=== PATIENT | male | born 1960 | race Caucasian/White ===

== ENCOUNTER 2024-08-11 13:39 | Outpatient (RCR) | payer BC, SELFPAY | END 2024-08-11 23:59 | disposition home or self-care (01) | LOC: RST 13:39 | PROVIDERS: ATTENDING PHYSICIAN Psychiatry & Neurology Neurology; FAMILY PHYSICIAN Family Medicine | DX: G20.A1 Parkinson's disease without dyskinesia, without mention of fluctuations (principal); R47.1 Dysarthria and anarthria; R49.0 Dysphonia | CPT/HCPCS: 92507; 92524 ==

== ENCOUNTER 2024-08-28 11:43 | Outpatient (RCR) | payer BC, SELFPAY | END 2024-08-28 23:59 | disposition home or self-care (01) | LOC: RST 11:43 | PROVIDERS: ATTENDING PHYSICIAN Psychiatry & Neurology Neurology; FAMILY PHYSICIAN Family Medicine | DX: G20.A1 Parkinson's disease without dyskinesia, without mention of fluctuations (principal); R47.1 Dysarthria and anarthria; R49.0 Dysphonia | CPT/HCPCS: 92507 ==

== ENCOUNTER 2025-01-10 15:39 | Inpatient (IN) | payer BC, SELFPAY ==
[2025-01-10] VITALS (33 sets, daily range): BP systolic 53–124; BP diastolic 33–109; BMI 36.0; BMI 35.8
--- NOTE | 2025-01-10 11:25 | ED.GENMED ---
History of Present Illness
General
Chief Complaint: Abdominal Symptoms
Source: patient and spouse
Exam Limitations: none
Time Seen by Provider: 01/10/25 11:13
Nursing documentation reviewed up to this point in time: agreed with
History of Present Illness
History of Present Illness:
64-year-old male with no reported chronic medical issues presents to the ER with his for evaluation of nausea, vomiting, diarrhea and fatigue. Of note patient has been on Mounjaro for weight loss last dose was on Sunday. He says that for the
past 2 weeks he has had vomiting and diarrhea nonbloody. He says he has not been able to eat very much and recently not keeping fluids down. Has been feeling very weak and lightheaded�in fact in triage he had a near syncopal event. says 'he
has been out of it.' He denies any significant amount of abdominal pain. He denies any chest pain or shortness of breath, fevers, chills, urinary symptoms or any other complaints. He denies any prior abdominal surgeries.
Past History
Social History
Tobacco: Non-smoker
Personal:
Living: with family
Review of Systems
Review of Systems
All Other Systems: ROS reviewed and negative except as documented in HPI and ROS
Constitutional: Reports fatigue; Denies fever or chills
EENT: Denies sore throat or runny nose
Respiratory: Denies cough or trouble breathing
Cardiac: Denies chest pain
ABD/GI: Reports nausea, vomiting and diarrhea; Denies abdominal pain, bloody stools or black stools
: Denies dysuria or flank pain
Musculoskeletal: Denies neck pain or back pain
Neurological: Reports dizzy; Denies headache
Phy Exam
Physical Exam
Physical Exam:
General: Awake, alert, oriented x3; no acute distress
Head: Normocephalic, atraumatic
Eyes: Conjunctiva normal, sclera anicteric
Throat: Airway intact, dry mucous membranes
Neck: Trachea midline, supple without meningismus
Lungs: Clear to auscultation bilaterally, no wheezing, rales, rhonchi
Heart: Regular rate and rhythm, no murmurs, gallops, or rubs
Abd: Soft, non distended, tender to palpation left lower quadrant
Neuro: No gross deficits
Skin: Warm and dry, no rash
Extremities: No edema in extremities, equal pulses in all extremities
Scores
Heart Failure Risk
Heart Failure Risk Score: Not Applicable
Heart Score for Chest Pain Patients
STEMI patient?: Not applicable
Withdrawal Assessment of Alcohol
Withdrawal Assessment Completed?: Not applicable
Course
Orders/Labs/Results
Orders:
Orders
01/10/25 11:16
Cardiac Monitoring- Treatment ONCE
IV Insert/Care/Rem.- Treatment PRN
Urinalysis Reflex To Culture Urgent
Stool Culture Urgent
CANDY Source: Feces/Stool
Specimen Description:
0.9% Sodium Chloride 1000 ml [Nss] 1,000 ml IV BOLUS
O2 Therapy [RESP] Stat
Titrate/Wean O2 to maintain O2 sat greater than (%): 90
Pulse Ox/cont/shift [RESP] Stat
Quantity: 1
01/10/25 11:17
Electrocardiogram (*1) Stat
Reason for Study: Abdominal Pain
EKG- Treatment ONCE
01/10/25 11:24
Iohexol [Omnipaque] See Protocol PO NOW STA
01/10/25 11:25
COVID-19 Antigen Urgent
Source: Nasal Swab
Complete Blood Count/With Diff Urgent
Comprehensive Metabolic Panel Urgent
Lipase Urgent
Magnesium Urgent
Influenza A+B Rapid Molecular Urgent
CANDY Source: Nasal Swab
Specimen Description:
Ondansetron Injectable [Zofran] 4 mg IV NOW STA
01/10/25 11:45
Lactate Level [Lactic Acid] Urgent
Blood Culture Q30M
CANDY Source: Blood/Venous
Specimen Description:
01/10/25 11:47
Blood Culture Q30M
CANDY Source: Blood/Venous
Specimen Description:
01/10/25 12:05
Salazar Placement- Treatment ONCE
Reason for insertion: Acute Kidney Injury
Urine Creatinine Urgent
Urine Sodium Urgent
01/10/25 12:06
Osmolality, Random Urine Urgent
0.9% Sodium Chloride 1000 ml [Nss] 1,000 ml IV BOLUS
01/10/25 12:10
CT Abd/pel (oral only)-DH Only Urgent
Comment:
Reason For Exam: N/V/D, LLQ TTP; renal failure
Iohexol [Omnipaque] See Protocol PO NOW STA
Abnormal Lab Results
01/10/25
11:25
RBC 4.07 L 10^6/uL
(4.70-6.10)
Hct 38.7 L %
(39.0-52.0)
MCV 95.1 H fL
(80.0-94.0)
MCH 33.4 H pg
(27.0-31.0)
MPV 11.4 H fL
(7.4-10.4)
Abs Immat Gran (auto) 0.1 H 10^3/uL
(0-0.05)
Absolute Monos (auto) 0.9 H 10^3/uL
(0.1-0.6)
Immature Gran % 1.3 H %
(0-0.5)
Monocytes % 14.3 H %
(1.7-9.3)
Sodium 131 L mmol/L
(135-145)
Carbon Dioxide 8 L* mmol/L
(22-30)
BUN 90 H mg/dl
(9-20)
Creatinine 11.6 H* mg/dL
(0.7-1.3)
Lipase 866 H U/L
(23-300)
01/10/25 11:25
01/10/25 11:25
Vital Signs
Initial and Last Documented VS:
Initial Vital Signs
Temp Pulse Resp Pulse Ox
36.5 C 57 16 95
01/10/25 10:57 01/10/25 10:57 01/10/25 10:57 01/10/25 10:57
Last Documented Vital Signs
Temp Pulse Resp BP Pulse Ox
36.5 C 96 14 86/33 97
01/10/25 10:57 01/10/25 11:13 01/10/25 11:13 01/10/25 11:13 01/10/25 11:13
MDM/Problems Addressed
Differential Diagnosis Includes:
Colitis, diverticulitis, enteritis, gastritis, pancreatitis, cholelithiasis/cholecystitis, adverse effects from Mounjaro
MDM/Problems Addressed:
64-year-old male recently on Mounjaro presents with diarrhea and nausea/vomiting x 2 weeks now with increasing fatigue and lightheadedness. Had presyncopal episode in triage. Hypotensive, heart rate 90s rest of vitals normal. Physical exam as
above he does appear dehydrated. Will check EKG. Place an IV send labs including a CBC and a CMP, lipase. Send stool studies. Will check CT abdomen pelvis. Will provide fluids, antiemetic. Reassess after the above.
Lab called back patient's chemistry: He has acute renal failure with a creatinine of 11.6, BUN 90. He has an anion gap metabolic acidosis suspect likely from uremia. His prior creatinine was 2 in 2021 but he says that this was in the setting of
heavy Advil use and that he has been seeing Dr. 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 Will place Salazar catheter to monitor urine output. Case discussed with nephrology for consultation. Suspect this is
prerenal will continue IV fluid resuscitation. Patient's blood pressure is responding well to fluids. We are still pending rest of workup but plan for admission.
*Radiology
Radiology exam reviewed: radiology read reviewed
*Pulse Oximetry
Patient hypoxic: no
*Critical Care Note
Total Time (30-74mins, 75-104mins- exclusive of procedures): Not Applicable
Data Reviewed
Review of Other/Old Records Reveals: Labs and Records
Source: patient and spouse
Patient Management
Discussion with other providers: Hospitalist (Discussed with hospitalist) and Maintenance Shop Laborer (Discussed with nephrology)
Escalation/DeEscalation of care consider admission/obs:
Admission indicated
ED Attending Note
-
Portions of this chart may have been created with voice recognition software.� Occasional wrong word or��sound alike� substitutions may have occurred due to the inherent limitations of voice recognition software.
Discharge Plan
Departure
Discharge Problem:
Pancreatitis, Acute renal failure
Prescriptions:
No Action
allopurinol 300 MG tablet
300 mg PO DAILY
rosuvastatin 10 MG tablet
10 mg PO DAILY
cyclobenzaprine 10 MG tablet
10 mg PO TIDPRN PRN (Reason: muscle spasm) Qty: 9 0RF
Referrals:
Jan Larkin, DO [Family Provider] -
Interventions
Interventions:
*Risk Screen - Suicide Last Done: 01/10/25 11:13
*General Assessment Last Done: 01/10/25 11:13
*Neglect/Abuse Screening Last Done: 01/10/25 11:13
*ED COVID-19 Vaccine History Last Done: 01/10/25 11:13
Discharge Date and Time
Print Language: NEPALI
[2025-01-10] MEDS: NSS 1000 IV ×3 (11:52→15:16)
[2025-01-10] MEDS: ZOFRAN 4 MG IV (11:56)
[2025-01-10] MEDS: OMNIPAQUE 50 ML PO (11:56)
[2025-01-10 12:01] LABS: COVID-19 Antigen Negative (Negative)
[2025-01-10 12:05] LABS: ALT (SGPT) 20 U/L (0-50); AST (SGOT) 21 U/L (17-59); Albumin 4.1 g/dl (3.5-5.0); Alkaline Phosphatase 76 U/L (38-126); Blood Urea Nitrogen 90 mg/dl (9-20); Calcium 10.1 mg/dl (8.4-10.2); Carbon Dioxide 8 mmol/L (22-30); Chloride 102 mmol/L (98-107); Estimated Creatinine Clearance 8 ml/min; Glucose 99 mg/dl (70-99); Lipase 866 U/L (23-300); Potassium 4.3 mmol/L (3.5-5.1); Sodium 131 mmol/L (135-145); Total Bilirubin 0.7 mg/dl (0.2-1.3); Total Protein 7.1 g/dl (6.3-8.2); eGFR 4.44
[2025-01-10 12:10] LABS: % Basophils 1.1 % (0-2); % Immature Granulocytes 1.3 % (0-0.5); % Lymphocytes 26.5 % (20.5-51.1); % Monocytes 14.3 % (1.7-9.3); % Neutrophils 53.8 % (42.2-75.2); Absolute Basophils 0.1 10^3/uL (0-0.2); Absolute Eosinophils 0.2 10^3/uL (0-0.7); Absolute Immature Granulocytes 0.1 10^3/uL (0-0.05); Absolute Lymphocytes 1.7 10^3/uL (1.2-3.4); Absolute Monocytes 0.9 10^3/uL (0.1-0.6); Absolute Neutrophils 3.4 10^3/uL (1.4-6.5); Hematocrit 38.7 % (39.0-52.0); Hemoglobin 13.6 g/dL (13.0-18.0); Mean Corp Hgb Conc. 35.1 g/dL (33.0-37.0); Mean Corpuscular Hgb 33.4 pg (27.0-31.0); Mean Corpuscular Volume 95.1 fL (80.0-94.0); Mean Platelet Volume 11.4 fL (7.4-10.4); Nucleated Red Blood Cells % 0 % (-); Platelet Count 196 10^3/uL (130-400); Red Blood Cell Count 4.07 10^6/uL (4.70-6.10); Red Cell Dist. Width 12.1 % (11.5-14.5); White Blood Cell Count 6.4 10^3/uL (4.8-10.8)
[2025-01-10 12:21] LABS: Lactic Acid 1.4 mmol/L (0.7-2.0)
[2025-01-10 12:29] LABS: Urine Albumin 3+ (Neg - Trace); Urine Bilirubin 1+ (Negative); Urine Character Clear (Clear); Urine Color Yellow; Urine Glucose Negative (Negative); Urine Ketone Negative (Negative); Urine Leukocyte 1+ (Negative); Urine Nitrite Negative (Negative); Urine Occult Blood 2+ (Negative); Urine Urobilinogen Negative (Neg - 1+)
[2025-01-10 12:35] LABS: Osmolality Urine 337 mOsm/kg (300-900)
[2025-01-10 12:46] LABS: Urine Granular Cast 0-2 /LPF (0); Urine Hyaline Cast >15 /LPF (0-2)
[2025-01-10 12:47] LABS: Urine Bacteria Moderate (Negative)
[2025-01-10 12:48] LABS: Urine Red Blood Cell 0-2 /HPF (0-2)
--- NOTE | 2025-01-10 12:50 | W.CON.NEPH ---
Consultation
-
Date/Time Consultation Requested: , 12:30 PM
Date/Time Consultation Performed: 01/10/25, 12:30 PM
Requesting Provider: Dr. Turner
Performing Provider: Dr. Lemus
Reason for Consultation: Acute kidney injury
Medical History
-
Chief Complaint: acute kidney injury
History of Present Illness:
the patient is a 64-year-old male with a past medical history of previous acute renal failure due to NSAID induced injury with known proteinuria who follows with nephrology in the [facility]. His known recent creatinine level was 1.03 as of
11/26/24 in the setting of his CK D. Hehas a history of hypertension and is been maintained on ARB and calcium channel jessica. He is maintained on statin therapy in the setting of his dyslipidemia. He was recently initiated on Mounjaro for his
obesity by his motivational speaker in the [facility] several weeks prior. Patient presents to the hospital after 2 week course of ongoing intractable vomiting, diarrhea and abdominal pain with decreased by mouth intake. He presented to the hospital,
He was profoundly hypotensive with systolic blood pressures in the 80s.He was in acute renal failure with a creatinine of 11 and a BUN in the 90s with associated Metabolic acidosis and nephrology was urgently consulted. Salazar catheter was placed
in the emergency room.
Past Medical History
Previous acute renal failure due to NSAID induced injury
History of proteinuria
History of kidney hematoma
Hypertension
Obesity
Hyperlipidemia
Parkinson's
Social History
Tobacco: Non-Smoker
Alcohol: None
Drug: None
Living: With Family
Family History
no CKD
Allergies / Home Medications
Allergy/AdvReac Type Severity Reaction Status Date / Time
bee venom protein (honey bee) Allergy Intermediate Swelling Verified 01/10/25 11:12
�Medication �Instructions �Recorded �Confirmed �Type
allopurinol 300 mg tablet 300 mg PO DAILY 07/24/13 07/24/13 History
cyclobenzaprine 10 mg tablet 10 mg PO TIDPRN PRN muscle spasm 07/24/13 Rx
#9 tabs
rosuvastatin 10 mg tablet 10 mg PO DAILY 07/24/13 07/24/13 History
Review of Systems
-
History Source: Patient
All other systems: Negative unless noted
Constitutional: Weight Loss and Fatigue
Respiratory: No Symptoms
Cardiac: No Symptoms
Abdomen/GI: Abdominal Pain (Left lower quadrant), Nausea, Vomiting, Diarrhea and Anorexia
: Other (, decreased urine output)
Musculoskeletal: No Symptoms
Skin: No Symptoms
Neurological: No Symptoms
Endocrine: No Symptoms
Hematologic/Lymphatic: No Symptoms
Physical Exam
Vital Signs
Vital Signs
Temp Pulse Resp BP Pulse Ox
97.7 F 81 14 106/62 98
01/10/25 10:57 01/10/25 12:30 01/10/25 12:30 01/10/25 12:30 01/10/25 12:40
Lab Results
01/10/25 11:25
01/10/25 11:25
WBC 6.4 10^3/uL (4.8-10.8) 01/10/25 11:25
RBC 4.07 10^6/uL (4.70-6.10) L 01/10/25 11:25
Hgb 13.6 g/dL (13.0-18.0) 01/10/25 11:25
Hct 38.7 % (39.0-52.0) L 01/10/25 11:25
Plt Count 196 10^3/uL (130-400) 01/10/25 11:25
Sodium 131 mmol/L (135-145) L 01/10/25 11:25
Potassium 4.3 mmol/L (3.5-5.1) 01/10/25 11:25
Chloride 102 mmol/L (98-107) 01/10/25 11:25
Carbon Dioxide 8 mmol/L (22-30) L* 01/10/25 11:25
BUN 90 mg/dl (9-20) H 01/10/25 11:25
Creatinine 11.6 mg/dL (0.7-1.3) H* 01/10/25 11:25
eGFR 4.44 01/10/25 11:25
Glucose 99 mg/dl (70-99) 01/10/25 11:25
Calcium 10.1 mg/dl (8.4-10.2) 01/10/25 11:
Albumin 4.1 g/dl (3.5-5.0) 01/10/25 11:
Physical Exam
General: AOx3, No Distress and Nontoxic
HEENT: PERRL, EOMI, Anicteric, Conjunctivae Clear, Ear/Nose Intact, Hearing Normal, Oropharynx Clear/Moist, Dentition Intact, Facial Symmetry, Neck Supple, Trachea Midline, No JVD and No Thyromegaly
Respiratory: Clear
Cardiac: S1/S2 and Regular Rate/Rhythm
Breast: Deferred by me
Abdomen: Soft, Normal Bowel Sounds, No Hepatosplenomegaly and Other (, left lower quadrant abdominal discomfort with deep palpation)
Rectal: Deferred by Provider
Genito-urinary: No Costovertebral Tender, Clear Urine and Other ( Salazar catheter)
Musculoskeletal: No Clubbing, No Cyanosis and No Edema
Skin: No Rash, Warm, Dry, No Clubbing, No Cyanosis, Normal Turgor and No Bruising
Neuro: Nonfocal/Grossly Intact and Other (. No asterixis)
Data Reviewed
-
Medical Tests (Nuc Med, Echo etc): Other ( personally reviewed. EKG sinus rhythm with first-degree AV block at 93 bpm)
Labs: Labs Reviewed by me ( BMP, CBC)
Old Records: Reviewed ( reviewed creatinine level of 1.03 from old labs from 11/26/24 in the electronic medical record)
Assessment/Plan
-
Impression:
EDWARD (baseline 1.03 11/26/24)
History of CK D with creatinine of 1.03 with underlying proteinuria
Nausea, vomiting, diarrhea or abdominal pain, suspected due to GLP-1
Metabolic acidosis (AG 21)
Obesity
Hyperlipidemia
Plan:
EDWARD:
-Causality likely due to strong prerenal stimulus from ongoing GI losses in setting of ARB administration and hypotension
-Withhold GLP-1 and ARB
-IV fluid resuscitation, would transition IV fluids now to sterile water with 150 mEq of sodium bicarbonate per liter at 150 cc per hour
-Obtain urinalysis, urine sodium, urine creatinine, urine protein and kidney and bladder ultrasound
-Maintain Salazar catheter over next 24 hours
-Anion gap acidosis likely due to underlying renal failure
[2025-01-10 12:51] LABS: Urine Sodium 9 mmol/L (30-90)
--- NOTE | 2025-01-10 16:00 | PTCARENOTE ---
The patient was received from ER. VSS afebrile pt complained of minor pain in right forearm. right forarm with dark blue/black hematoma with some signs of healing yellow color surrounding the bruising with a 2 inch by 1 inch very dark scab. IV NSS
was infusing from ER wide open and completed, new IVF bag hung as per order sterile h20 nahco3 without troubles throught RAC. PT alert able to make needs known with very fine tremor on lips and hands. Pt stated he has beginnings of PD. telemetry
applied NSR. Lungs CTA ra 98% no coughing. abdomen large soft + Bs, giron draining clear yellow urine and urine samples sent as per order. PT placed on high fall risk. pt stated he fell down and passed out in the ER, yellow band on and he agreed to
call for nurses to ambulate in and out of batoom. pt was oriented to unit, call cuello and understood fall precautions.
[2025-01-10 16:01] LABS: Urine Albumin 3+ (Neg - Trace); Urine Bilirubin Negative (Negative); Urine Character Clear (Clear); Urine Color Yellow; Urine Glucose Negative (Negative); Urine Ketone Negative (Negative); Urine Leukocyte 1+ (Negative); Urine Nitrite Negative (Negative); Urine Occult Blood 3+ (Negative); Urine Urobilinogen Negative (Neg - 1+)
[2025-01-10 16:16] LABS: Urine Calcium Oxalate Crystals Seen; Urine Red Blood Cell 0-2 /HPF (0-2)
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
[2025-01-10 16:17] LABS: Urine Bacteria Many (Negative)
[2025-01-10] MEDS: SODIUM BICARBONATE 1150 MEQ IV (18:35)
[2025-01-10 18:49] LABS: Urine Albumin 3+ (Neg - Trace); Urine Bilirubin Negative (Negative); Urine Color Yellow; Urine Glucose Negative (Negative); Urine Ketone Negative (Negative); Urine Leukocyte 2+ (Negative); Urine Nitrite Negative (Negative); Urine Occult Blood 4+ (Negative); Urine Specific Gravity 1.015 (<1.030); Urine Urobilinogen Negative (Neg - 1+)
[2025-01-10 18:52] LABS: Urine Character Slightly Cloudy (Clear)
[2025-01-10 18:59] LABS: Urine Squamous Cell >30 /LPF (Few)
[2025-01-10 19:00] LABS: Urine Bacteria Few (Negative); Urine White Cell 70-80 /HPF (0-5)
[2025-01-10 19:05] LABS: Urine Sodium 8 mmol/L (30-90)
[2025-01-10] MEDS: PROTONIX 40 MG PO (19:28)
[2025-01-10] MEDS: LEXAPRO 10 MG PO (21:20)
[2025-01-10 23:37] LABS: Blood Urea Nitrogen 86 mg/dl (9-20); Calcium 8.9 mg/dl (8.4-10.2); Carbon Dioxide 14 mmol/L (22-30); Chloride 103 mmol/L (98-107); Estimated Creatinine Clearance 10 ml/min; Glucose 79 mg/dl (70-99); Magnesium 1.7 mg/dl (1.6-2.3); Phosphorus 6.2 mg/dl (2.5-4.5); Potassium 4.1 mmol/L (3.5-5.1); Sodium 131 mmol/L (135-145); eGFR 5.64
[2025-01-11] MEDS: TYLENOL 650 MG PO ×2 (00:01→18:16)
[2025-01-11] MEDS: SODIUM BICARBONATE 1150 MEQ IV ×2 (01:35→08:52)
[2025-01-11 03:00] VITALS: BP 106/60
[2025-01-11 07:06] VITALS: BMI 36.2
--- NOTE | 2025-01-11 07:30 | W.PN.HOSP.TC ---
Addendum entered and electronically signed by Padmini Tracy MD 01/11/25 13:53:
I saw and evaluated the patient independently. I reviewed the resident�s note and agree with findings and plan as documented by Dr. Sharp.
GENERAL: well developed, well nourished, obese male in no apparent distress
HEENT:NC/AT--no O2 requirements
HEART: regular rate and rhythm, +S1, +S2
LUNGS : clear to auscultation bilaterally
ABDOM: soft, nontender, nondistended, + bowel sounds
EXT: no cyanosis, clubbing, or edema
NEUROLOGIC: grossly intact
SKIN: faint maculopapular rash, red, mildly itchy--over torso--with right arm bruise/ecchymosis
: giron with clear yellow urine
Acute renal failure from Prerenal Acute kidney injury with anion gap metabolic acidosis--pt hypotensive on admission due to volume losses and diarrhea, BP improved, HCO3 improved--loss of HCO3 from diarrhea also contribution--apprec renal--cont
giron--cont IVF with bicarb--creat 11.6 to 9.5 to 8.3--hold ARB--renal dose meds
Staph aureus bacteremia--2 of 2 bottles positive--cont zosyn--source? skin (has right arm scab, bruise) vs urine?--repeat blood cultures until clear
N/V/D--likely from [facility]--stop for now--no signs of infection--no other ill contacts--zofran
Essential hypertension--holding meds for now as pt hypotensive on IVF
Hyperlipidemia--Continue rosuvastatin
GERD--Continue pantoprazole
Depression/anxiety--Continue escitalopram
hx of Parkinson's--not on treatment--dx by 3 different neurologists--PT/OT
CODE STATUS--Full
DVT Proph--Sequential compression devices
Original Note:
Today's Communication/Plan
-
Continue IV fluid support. Continue antiemetics for nausea. Renally dosed Zosyn given for positive blood cultures containing gram-positive cocci in clusters. Patient has been advanced to regular diet as tolerated. Patient was given hydrocortisone
for Grovers disease.
Assessment / Plan
Assessment / Plan
Assessment/Plan:
-Acute renal failure from prerenal Acute kidney injury with anion gap metabolic acidosis:
Patient's sodium was 131, chloride was 102, bicarbonate was 8�calculated anion gap 21
Patient is hypovolemic due to ongoing GI fluid losses through vomiting and diarrhea
Patient was hypotensive with a blood pressure of 86/33
BUN was 90 and creatinine was 11.6 on admission
Discontinue angiotensin receptor jessica
Discontinue GLP-1
Appreciate nephrology recommendations�they recommend sterile water with 150 sodium bicarb at 150 cc an hour -continue
Maintain Giron for now to determine I's and O's
Renally dosed medications
-Bacteremia:
Blood culture taken on 01/10/2025 resulted positively for gram-positive cocci in clusters�preliminary finding�will adjust antibiotics accordingly
Given renally dosed Zosyn
-Nausea and vomiting:
Continue Zofran and pantoprazole
Diet has been advanced to regular as tolerated
-Essential hypertension:
Patient is currently hypotensive on admission -holding all blood pressure medications especially angiotensin receptor blockers as the patient has EDWARD
May resume a calcium channel jessica like amlodipine once hemodynamics stabilize
-Hyperlipidemia:
Continue rosuvastatin
-GERD:
Continue pantoprazole
-Depression/anxiety:
Continue escitalopram
-History of Parkinson's
Not on standard treatment
Has been diagnosed by 3 different neurologists in the past as per history taken from patient
-History of Grovers disease:
Patient has a red rash across the chest present on admission�stated that he has a history of Grovers disease as diagnosed by sash clamp operator
Hydrocortisone 2.5% cream added
CODE STATUS: Full
Stress Ulcer Prophylaxis: Pantoprazole
DVT Prophylaxis: Sequential compression devices
Imaging:
Abdominal CT conducted on 01/10/2025:
IMPRESSION:
Limited evaluation of the organs of the abdomen without intravenous contrast.
Contracted gallbladder with likely tiny stone. No gross findings to suggest biliary tract dilatation.
Opacified distal large bowel with virtually completely decompressed descending and sigmoid colon with suspected diverticulosis. No intestinal obstruction or free air.
Prior surgery with metal hardware in the lumbar spine and bilateral hip arthroplasties resulting in marked beam hardening artifact significantly obscuring the soft tissues of the true pelvis including the urinary bladder.
Moderate bilateral perinephric stranding limited in evaluation without intravenous contrast.
Procedures: N/A
Anticipated Discharge: > 48 hours
Subjective/Interval History
-
Date of Service: January 11, 2025
Met with the patient at the bedside. He states that he is doing much better today and does not have much of any nausea. He was seen trying to eat breakfast and was hoping that it would go well. Updated patient on his most recent lab work.
Objective Data
-
Labs:
Laboratory Results
01/10/25 01/11/25
23:04 07:23
WBC 5.0
Hgb 12.1 L
Hct 34.4 L
Plt Count 154 D
Sodium 131 L 133 L
Potassium 4.1 4.1
Chloride 103 102
Carbon Dioxide 14 L* 18 L
BUN 86 H 81 H
Creatinine 9.5 H* 8.3 H*
Glucose 79 82
Calcium 8.9 8.7
Total Bilirubin 0.5
AST 16 L
ALT 15
Alkaline Phosphatase 70
Vital Signs:
Vital Signs
Temp Pulse Resp BP Pulse Ox
97.7 F 88 20 116/61 99
01/11/25 08:30 01/11/25 08:30 01/11/25 08:30 01/11/25 08:30 01/11/25 08:30
I&O
01/10/25 01/11/25 01/12/25
06:59 06:59 06:59
Intake Total 1500 / 1500
Output Total 800 / 800 275 / 275
Balance 700 / 700 -275 / -275
Review of Systems
-
History Source: Patient
Constitutional: Reports No Symptoms
EENT: Reports No Symptoms Reported
Respiratory: Reports No Symptoms
Cardiac: Reports No Symptoms
Abdomen/GI: Reports No Symptoms
Breast: Reports No Symptoms
Genitourinary: Reports No Symptoms
Musculoskeletal: Reports No Symptoms
Skin: Reports No Symptoms
Neuro: Reports No Symptoms
Endocrine: Reports No Symptoms
Hematologic / Lymphatic: Reports No Symptoms
Physical Exam
-
General: Well Developed, Well Nourished, No Apparent Distress and Obese
HEENT: Normocephalic, Atraumatic and Moist Mucous Membranes
Respiratory: Clear to Auscultation
Cardiac: S1/S2; Negative Murmur or Rub
Breast: Deferred by me
GI: Soft, Nontender, Nondistended and Normal Bowel Sounds
Rectal: Deferred by Provider
Genito-urinary: Deferred by me
Musculoskeletal: No Clubbing, No Cyanosis and No Edema
Skin: Warm and Dry
Neuro: Awake, Alert, Oriented and AO x 3
Psych: Calm
[2025-01-11 08:10] LABS: Hematocrit 34.4 % (39.0-52.0); Hemoglobin 12.1 g/dL (13.0-18.0); Mean Corp Hgb Conc. 35.2 g/dL (33.0-37.0); Mean Corpuscular Hgb 33.1 pg (27.0-31.0); Mean Platelet Volume 10.9 fL (7.4-10.4); Platelet Count 154 10^3/uL (130-400); Red Blood Cell Count 3.66 10^6/uL (4.70-6.10); Red Cell Dist. Width 11.9 % (11.5-14.5)
[2025-01-11 08:30] VITALS: BP 116/61
[2025-01-11 08:31] LABS: ALT (SGPT) 15 U/L (0-50); AST (SGOT) 16 U/L (17-59); Alkaline Phosphatase 70 U/L (38-126); Blood Urea Nitrogen 81 mg/dl (9-20); Calcium 8.7 mg/dl (8.4-10.2); Carbon Dioxide 18 mmol/L (22-30); Chloride 102 mmol/L (98-107); Estimated Creatinine Clearance 11 ml/min; Glucose 82 mg/dl (70-99); Lipase 578 U/L (23-300); Magnesium 1.6 mg/dl (1.6-2.3); Phosphorus 5.5 mg/dl (2.5-4.5); Potassium 4.1 mmol/L (3.5-5.1); Sodium 133 mmol/L (135-145); Total Bilirubin 0.5 mg/dl (0.2-1.3); Total Protein 5.4 g/dl (6.3-8.2); eGFR 6.63
[2025-01-11] MEDS: PROTONIX 40 MG PO ×2 (08:53→19:27)
[2025-01-11] MEDS: VITAMIN D3 (cholecalciferol) 25 MCG PO (08:53)
[2025-01-11] MEDS: CRESTOR 10 MG PO (08:53)
[2025-01-11] MEDS: ZOFRAN 4 MG IV (08:56)
[2025-01-11 08:58] LABS: TSH 3.73 uIU/ml (0.47-4.68)
[2025-01-11 09:17] LABS: Vitamin B12 984 pg/ml (239-931)
[2025-01-11] MEDS: ZOSYN 50 IV ×2 (10:28→18:14)
--- NOTE | 2025-01-11 12:12 | W.PN.NEPH.PH ---
Today's Communication / Plan
-
Maintain IV fluid
Check urine protein to creatinine ratio
Assessment/Plan
-
Impression:
EDWARD (baseline 1.03 11/26/24) presented with creatinine of 11.6
History of CK D with creatinine of 1.03 with underlying proteinuria
Nausea, vomiting, diarrhea or abdominal pain, suspected due to GLP-1
Metabolic acidosis (AG 21)
Obesity
Hyperlipidemia
Plan:
EDWARD:
-Causality likely due to strong prerenal stimulus from ongoing GI losses in setting of ARB administration and hypotension
-Withhold GLP-1 and ARB
-Creatinine down to 8.3 and BUN down to 81 following IV fluids administration
-IV fluid resuscitation, would transition IV fluids now half-normal saline with 75 mill equivalents of sodium bicarbonate per liter at per liter at 100cc per hour
-CT scan of abdomen and pelvis without obstructive uropathy
-Obtain urinalysis, urine sodium, urine creatinine, urine protein and kidney and bladder ultrasound: This is notes 4+ blood 2+ leukocyte esterase 70-80 white cells , 3+ albumin urine, fractional secretion of sodium less than 1 consistent with
prerenal etiology
-Check urine protein to creatinine ratio, as per patient he has undergone renal biopsy in the past with his lead carpenter at [place], henceforth I will not reinvent the wheel
-Maintain Salazar catheter over next 24 hours
-Anion gap acidosis likely due to underlying renal failure
-
-
Date of Service: January 11, 2025
CC / HPI / ROS
-
Chief Complaint:
Acute kidney injury
History of Present Illness:
Creatinine improving to 8.3
Hemodynamically stable
Bolick acidosis improving with alkaline IV fluids
Review of Systems:
Nonoliguric via Salazar catheter
No chest pain or shortness of breath
Nausea
Labs
-
Labs:
WBC 5.0 10^3/uL (4.8-10.8) 01/11/25 07:23
RBC 3.66 10^6/uL (4.70-6.10) L 01/11/25 07:23
Hgb 12.1 g/dL (13.0-18.0) L 01/11/25 07:23
Hct 34.4 % (39.0-52.0) L 01/11/25 07:23
Plt Count 154 10^3/uL (130-400) D 01/11/25 07:23
Sodium 133 mmol/L (135-145) L 01/11/25 07:23
Potassium 4.1 mmol/L (3.5-5.1) 01/11/25 07:23
Chloride 102 mmol/L (98-107) 01/11/25 07:23
Carbon Dioxide 18 mmol/L (22-30) L 01/11/25 07:23
BUN 81 mg/dl (9-20) H 01/11/25 07:23
Creatinine 8.3 mg/dL (0.7-1.3) H* 01/11/25 07:23
eGFR 6.63 01/11/25 07:23
Glucose 82 mg/dl (70-99) 01/11/25 07:23
Calcium 8.7 mg/dl (8.4-10.2) 01/11/25 07:23
Phosphorus 5.5 mg/dl (2.5-4.5) H 01/11/25 07:23
Albumin 3.0 g/dl (3.5-5.0) L 01/11/25 07:23
Physical Exam
-
Vital Signs:
Vital Signs
Temp Pulse Resp BP Pulse Ox
97.7 F 88 20 116/61 99
01/11/25 08:30 01/11/25 08:30 01/11/25 08:30 01/11/25 08:30 01/11/25 08:30
Cardiovascular:: Regular rate and rhythm
Respiratory:: Bilateral: CTA
Lung Excursion:: Normal
Abdomen:: Nontender
Bowel Sounds:: Normal
Extremity Edema:: None: Bilateral:
Salazar Catheter: Yes
[2025-01-11] MEDS: HYDROCORTISONE 2.5% CREAM 1 APPLIC TOPICAL ×2 (12:42→19:28)
[2025-01-11 12:57] VITALS: BP 105/66
[2025-01-11 15:00] VITALS: BP 95/59
[2025-01-11] MEDS: ROXICODONE 5 MG PO (18:16)
[2025-01-11] MEDS: SODIUM BICARBONATE 1075 MEQ IV (19:27)
[2025-01-11 19:33] VITALS: BP 105/59
[2025-01-11] MEDS: LEXAPRO 10 MG PO (21:42)
[2025-01-11 23:19] VITALS: BP 109/20
[2025-01-12 00:13] LABS: Protein/creatinine Ratio 0.5; Urine Protein 39 mg/dl
[2025-01-12] MEDS: ZOSYN 50 IV ×2 (01:09→10:43)
[2025-01-12 03:09] VITALS: BP 103/64
[2025-01-12] MEDS: SODIUM BICARBONATE 1075 MEQ IV (05:03)
[2025-01-12 05:07] VITALS: BMI 35.9
[2025-01-12 07:19] VITALS: BP 122/72
--- NOTE | 2025-01-12 07:26 | W.PN.HOSP.TC ---
Addendum entered and electronically signed by Chriss Bowie MD 01/12/25 16:50:
Seen and examined by me independently in collaboration with the medical records secretary.
Lab data and imaging data reviewed.
Addendum as below :
Resolved GI symptoms since slow improvement with creatinine. Renal following. Continue with fluid support per nephrology.
Patient had a fall due to dizziness from diarrhea causing right arm skin and soft tissue injury. The right arm wound was like as golf ball size now improving size. His blood cultures are positive 2 out of 2 for Staphylococcus aureus. Await final
sensitivities. DC Zosyn and add vancomycin till culture data is out. Consult infectious disease for further antibiotic management.
Total time spent on today's encounter was 52 minutes which included time spent in counseling the patient/family regarding diagnosis and treatment plan as listed above, goals of care, and symptom management. Case was discussed with nursing staff,
specialists, and care coordinators/case management. All labs and imaging personally reviewed by me. Remainder the time spent in detailed review of previous records, lab data, imaging, and other medical provider documentation.
Original Note:
Today's Communication/Plan
-
Appreciate nephrology recommendations. Continue IV fluid support. Continue antibiotics. Creatinine continues to trend downwards. Right arm ecchymosis was evaluated via x-ray which was unremarkable and wound team assessed as well.
Assessment / Plan
Assessment / Plan
Assessment/Plan:
-Acute renal failure from prerenal Acute kidney injury with anion gap metabolic acidosis:
Patient's sodium was 131, chloride was 102, bicarbonate was 8�calculated anion gap 21
Patient is hypovolemic due to ongoing GI fluid losses through vomiting and diarrhea
Patient was hypotensive with a blood pressure of 86/33
BUN was 90 and creatinine was 11.6 on admission
Discontinue angiotensin receptor jessica
Discontinue GLP-1
Appreciate nephrology recommendations�they recommend sterile water with 150 sodium bicarb at 150 cc an hour -continue
Maintain Salazar for now to determine I's and O's
Renally dosed medications
-Staph Aureus Bacteremia:
Blood culture taken on 01/10/2025 resulted positively for gram-positive cocci in clusters� positive for staph aureus �will adjust antibiotics accordingly
Given renally dosed Zosyn
-Nausea and vomiting:
Continue Zofran and pantoprazole
Diet has been advanced to regular as tolerated
-Ecchymosis of right forearm:
Ecchymosis with scabs seen on right forearm
Wound team consulted
X-ray unremarkable
-Essential hypertension:
Patient is currently hypotensive on admission -holding all blood pressure medications especially angiotensin receptor blockers as the patient has EDWARD
May resume a calcium channel jessica like amlodipine once hemodynamics stabilize
-Hyperlipidemia:
Continue rosuvastatin
-GERD:
Continue pantoprazole
-Depression/anxiety:
Continue escitalopram
-History of Parkinson's
Not on standard treatment
Has been diagnosed by 3 different neurologists in the past as per history taken from patient
-History of Grovers disease:
Patient has a red rash across the chest present on admission�stated that he has a history of Grovers disease as diagnosed by floor press operator
Hydrocortisone 2.5% cream added
CODE STATUS: Full
Stress Ulcer Prophylaxis: Pantoprazole
DVT Prophylaxis: Sequential compression devices
Imaging:
Abdominal CT conducted on 01/10/2025:
IMPRESSION:
Limited evaluation of the organs of the abdomen without intravenous contrast.
Contracted gallbladder with likely tiny stone. No gross findings to suggest biliary tract dilatation.
Opacified distal large bowel with virtually completely decompressed descending and sigmoid colon with suspected diverticulosis. No intestinal obstruction or free air.
Prior surgery with metal hardware in the lumbar spine and bilateral hip arthroplasties resulting in marked beam hardening artifact significantly obscuring the soft tissues of the true pelvis including the urinary bladder.
Moderate bilateral perinephric stranding limited in evaluation without intravenous contrast.
Procedures: N/A
Anticipated Discharge: > 48 hours
Subjective/Interval History
-
Date of Service: January 12, 2025
Met with patient at the bedside. He stated that he was feeling nauseous and had not received his Zofran quite yet. He was able to keep all of his food down yesterday and did not have any vomiting
Objective Data
-
Vital Signs:
Vital Signs
Temp Pulse Resp BP Pulse Ox
97.7 F 79 20 122/72 100
01/12/25 07:19 01/12/25 07:19 01/12/25 07:19 01/12/25 07:19 01/12/25 07:19
I&O
01/11/25 01/12/25 01/13/25
06:59 06:59 06:59
Intake Total 1500 / 1500 1250 / 1250
Output Total 800 / 800 1625 / 1625
Balance 700 / 700 -375 / -375
Review of Systems
-
History Source: Patient
Constitutional: Reports No Symptoms
EENT: Reports No Symptoms Reported
Respiratory: Reports No Symptoms
Cardiac: Reports No Symptoms
Abdomen/GI: Reports Nausea
Breast: Reports No Symptoms
Genitourinary: Reports No Symptoms
Musculoskeletal: Reports No Symptoms
Skin: Reports No Symptoms
Neuro: Reports No Symptoms
Endocrine: Reports No Symptoms
Physical Exam
-
General: Well Developed, Well Nourished, No Apparent Distress, Comfortable and Obese
HEENT: Normocephalic and Atraumatic
Respiratory: Clear to Auscultation
Cardiac: S1/S2; Negative Murmur, Rub or JVD
Breast: Deferred by me
GI: Soft, Nontender, Nondistended and Normal Bowel Sounds
Rectal: Deferred by Provider
Genito-urinary: Deferred by me
Musculoskeletal: No Clubbing, No Cyanosis and No Edema
Skin: Warm and Dry; Negative Rash or Ulcers
Neuro: Awake, Alert, Oriented and AO x 3
Psych: Calm
[2025-01-12] MEDS: ZOFRAN 4 MG IV (08:07)
[2025-01-12] MEDS: PROTONIX 40 MG PO ×2 (08:07→19:23)
[2025-01-12] MEDS: VITAMIN D3 (cholecalciferol) 25 MCG PO (08:07)
[2025-01-12] MEDS: HYDROCORTISONE 2.5% CREAM 1 APPLIC TOPICAL ×2 (08:07→19:24)
[2025-01-12] MEDS: CRESTOR 10 MG PO (08:07)
[2025-01-12 09:54] LABS: Hematocrit 31.8 % (39.0-52.0); Hemoglobin 11.5 g/dL (13.0-18.0); Mean Corp Hgb Conc. 36.2 g/dL (33.0-37.0); Mean Corpuscular Hgb 33.2 pg (27.0-31.0); Mean Corpuscular Volume 91.9 fL (80.0-94.0); Mean Platelet Volume 10.9 fL (7.4-10.4); Platelet Count 146 10^3/uL (130-400); Red Blood Cell Count 3.46 10^6/uL (4.70-6.10); Red Cell Dist. Width 11.9 % (11.5-14.5); White Blood Cell Count 4.9 10^3/uL (4.8-10.8)
[2025-01-12 10:28] LABS: ALT (SGPT) 17 U/L (0-50); AST (SGOT) 18 U/L (17-59); Albumin 3.1 g/dl (3.5-5.0); Alkaline Phosphatase 64 U/L (38-126); Blood Urea Nitrogen 65 mg/dl (9-20); Calcium 8.4 mg/dl (8.4-10.2); Carbon Dioxide 27 mmol/L (22-30); Chloride 100 mmol/L (98-107); Estimated Creatinine Clearance 21 ml/min; Glucose 86 mg/dl (70-99); Magnesium 1.4 mg/dl (1.6-2.3); Phosphorus 3.8 mg/dl (2.5-4.5); Potassium 3.2 mmol/L (3.5-5.1); Sodium 136 mmol/L (135-145); Total Bilirubin 0.6 mg/dl (0.2-1.3); Total Protein 5.4 g/dl (6.3-8.2)
[2025-01-12 11:10] VITALS: BP 117/73
--- NOTE | 2025-01-12 11:20 | WOUNDNOTE ---
JUVENAL RN NOTE: Patient admitted with pancreatitis and acute renal failure, reviewed PMH in chart. Patient has a large scab on R arm and scattered bruising from accidentally banging on table. No drainage or induration noted. Sacrum and heels are
intact. Patient able to turn self to sides. at bedside, teaching done regarding wound care. Applied honey gel, adaptic, gauze and Spandage. Will confirm with hospitalist and updated nurse Vikki.
Will sign off unless needed.
--- NOTE | 2025-01-12 14:42 | PHA.VAN.IN ---
Assessment
- Assessment
Renal Function: Appears similar to baseline
Maximum Temperature: 98.3
Plan
- Plan
Initial / Loading Dose: vancomycin 2000 mg x 1
Monitorin/4 @0600
Pharmacokinetics Vancomycin I
- -
Patient Age: 64
Patient Sex: Male
Vancomycin Day #: 1
Indication: Bacteremia
Requesting Provider: Dr. Sharp
Pertinent Antimicrobial Allergies:
nkda
Height / Weight:
Height 5 ft 9 in
Actual Weight 110.1 kg
IBW in k.7
Adjusted BW in k.5
Pertinent Past Medical History: prerenal acute kidney injury
- Vital Signs / Lab Results
Temp Pulse Resp BP Pulse Ox
98.2 F 76 18 117/73 99
01/12/25 11:10 01/12/25 11:10 01/12/25 11:10 01/12/25 11:10 01/12/25 11:10
Lab Results - Hematology
01/10/25 01/10/25 01/11/25
11:25 18:17 07:23
WBC 6.4 Cancelled 5.0
01/12/25
09:27
WBC 4.9
Lab Results - Chemistry
01/10/25 01/10/25 01/10/25
11:25 18:17 23:04
BUN 90 H Cancelled 86 H
Creatinine 11.6 H* Cancelled 9.5 H*
Estimated Creat Clear 8 Cancelled 10
Albumin 4.1 Cancelled
01/11/25 01/12/25
07:23 09:27
BUN 81 H 65 H
Creatinine 8.3 H* 4.4 H*
Estimated Creat Clear 11 21
Albumin 3.0 L 3.1 L
01/10/25
11:45
Lactic Acid 1.4
Lab Results - Urine
01/10/25 01/10/25 01/10/25
12:21 15:53 18:38
Urine Nitrite Negative
Urine Nitrite (Reflex) Negative Negative
Ur Leukocyte Esterase 1+ A
Leukocyte Esterase Rfl 1+ A 2+ A
Urine WBC 6-10 A
Urine WBC (Reflex) 11-15 A 70-80 A
Ur Squamous Epith Cells 6-10 11-15 >30
Urine Bacteria Many A
Urine Bacteria (Reflex) Moderate A Few A
Microbiology Results
01/10/25 11:45 Blood Culture - Preliminary
Blood/Venous Staphylococcus aureus
Gram Stain - Final
01/10/25 11:47 Blood Culture - Preliminary
Blood/Venous Positive culture in progress
Gram Stain - Preliminary
01/10/25 11:16 Salmonella/Shigella Culture - Preliminary
Feces/Stool Culture in Progress
Campylobacter Culture - Preliminary
Culture in Progress
Shiga Toxin Test - Final
No E. coli Shiga Toxin 1 or 2 detected.
01/10/25 18:38 Urine Culture - Final
Urine NO GROWTH
01/10/25 12:21 Urine Culture - Final
Urine NO GROWTH
01/10/25 11:25 Influenza Types A & B (CELESTINE) - Final
Nasal Swab Negative for Influenza A & B, NAAT
Negative results must be combined with clinical observations
and patient history.
Nucleic Acid Amplification test (NAAT)performed on the
[employer] NOW platform.
[2025-01-12] MEDS: VANCOCIN 540 MG IV (15:03)
[2025-01-12 15:05] VITALS: BP 129/74
--- NOTE | 2025-01-12 15:05 | W.PN.NEPH.PH ---
Today's Communication / Plan
-
NSS
Assessment/Plan
-
Impression:
EDWARD (baseline 1.03 11/26/24) presented with creatinine of 11.6
History of CK D with creatinine of 1.03 with underlying proteinuria
Nausea, vomiting, diarrhea or abdominal pain, suspected due to GLP-1
Metabolic acidosis (AG 21)
Obesity
Hyperlipidemia
Plan:
follow BMP
change to NSS
replete K
I expect Cr to improve to < 2 by Sunday (his trip to [place]) and have no objection to travel from renal standpoint.
-
-
Date of Service: January 12, 2025
CC / HPI / ROS
-
Chief Complaint:
Acute kidney injury
History of Present Illness:
Creatinine improving to 4.4
K low 3.2
Hemodynamically stable
acidosis resolved
Review of Systems:
Nonoliguric via Aslazar catheter
No chest pain or shortness of breath
Labs
-
Labs:
WBC 4.9 10^3/uL (4.8-10.8) 01/12/25 09:27
RBC 3.46 10^6/uL (4.70-6.10) L 01/12/25 09:27
Hgb 11.5 g/dL (13.0-18.0) L 01/12/25 09:27
Hct 31.8 % (39.0-52.0) L 01/12/25 09:27
Plt Count 146 10^3/uL (130-400) 01/12/25 09:27
Sodium 136 mmol/L (135-145) 01/12/25 09:27
Potassium 3.2 mmol/L (3.5-5.1) L 01/12/25 09:27
Chloride 100 mmol/L (98-107) 01/12/25 09:27
Carbon Dioxide 27 mmol/L (22-30) 01/12/25 09:27
BUN 65 mg/dl (9-20) H 01/12/25 09:27
Creatinine 4.4 mg/dL (0.7-1.3) H* 01/12/25 09:27
eGFR 14.20 01/12/25 09:27
Glucose 86 mg/dl (70-99) 01/12/25 09:
Calcium 8.4 mg/dl (8.4-10.2) 01/12/25 09:
Phosphorus 3.8 mg/dl (2.5-4.5) 01/12/25 09:
Albumin 3.1 g/dl (3.5-5.0) L 01/12/25 09:27
Physical Exam
-
Vital Signs:
Vital Signs
Temp Pulse Resp BP Pulse Ox
98.2 F 76 18 117/73 99
01/12/25 11:10 01/12/25 11:10 01/12/25 11:10 01/12/25 11:10 01/12/25 11:10
Cardiovascular:: Regular rate and rhythm
Respiratory:: Bilateral: Coarse
Lung Excursion:: Normal
Abdomen:: Nontender and Soft
Bowel Sounds:: Normal
Extremity Edema:: None: Bilateral:
[2025-01-12 15:22] VITALS: BMI 35.9
[2025-01-12] MEDS: KCL 40 MEQ PO (15:48)
[2025-01-12] MEDS: NSS 1000 IV (15:49)
--- NOTE | 2025-01-12 15:57 | PTCARENOTE ---
Nephrology instructed this RN to remove indwelling Salazar catheter.
--- NOTE | 2025-01-12 16:06 | CON.ID ---
Addendum entered and electronically signed by Sera Teresa MD 01/13/25 11:10:
Correction
Date/Time Consultation Requested: January 12, [id number]
Date/Time Consultation Performed: January 12, 2025 1600
Original Note:
Consultation
-
Date/Time Consultation Requested: December 15, [id number]
Date/Time Consultation Performed: December 15, 2024 1600
Requesting Provider: Dr. Lance Sharp
Performing Provider: Dr. Sera Teresa
Reason for Consultation: Staph aureus bacteremia
Chief Complaint / Past History
Chief Complaint
N/V/D, weakness
History of Present Illness
64-year-old male with history of Parkinson's, class III obesity who was recently started on Mounjaro for weight loss approximately 2-3 weeks ago who presented to the hospital on January 10 due to intractable nausea, vomiting, and diarrhea. Appetite
was very poor. He had decreased urine output. He was very weak and has had several presyncopal episodes with falls. 1 to the fall he hit his right forearm sustaining a wound. He finally came to the hospital. Patient noted to be hypotensive, EDWARD
with creatinine 11, hyponatremic, metabolic acidosis. Admission blood cultures x 2 positive for Staph aureus. Yesterday he was started on Zosyn. Today to repeat blood cultures obtained then Zosyn changed to vancomycin. Patient reports he is
feeling a bit better. He continues to have diarrhea and mild nausea. He is making urine. No longer feeling dizzy. He is eating. No hip pain. No back pain.
Past History
Additional Past Medical History:
Parkinson's
Hypertension
HLD
History of renal hematoma
gout
Depression/anxiety
BMI 36
Additional Past Surgical History:
Bilateral SHWETA
Spine fusion with hardware
Bilateral bicep tendon repair
Allergy History:
bee venom protein (honey bee) Allergy (Intermediate, Verified 01/10/25 11:12)
Swelling
Medications Reviewed: Yes
Current Antibiotics:
Zosyn (01/11, 01/12)
Vanco day 1
Social History
Tobacco: Non-Smoker
Alcohol: Occasional
Drug: None
Personal:
Living: With Family
Employment: Retired
Family History
Family History: Not Pertinent
Review of Systems
Review of Systems
General: Change in Appetite; Negative Fever or Chills
HEENT: Negative Sinus Problems, Headache or Pharyngitis
Cardiovascular: Negative Chest Pain, Dyspnea or Edema
Respiratory: Negative Dyspnea or Cough
Gasteroenterology: Nausea and Diarrhea
Genital / Urological: Negative Dysuria or Flank Pain
Endocrine: Weakness
All systems: All other systems were reviewed and were negative
Vital Signs
Temp Pulse Resp BP Pulse Ox
97.9 F 80 18 129/74 98
01/12/25 15:05 01/12/25 15:05 01/12/25 15:05 01/12/25 15:05 01/12/25 15:05
Physical Exam
Physical Exam
Constitutional: No Acute Distress and Comfortable
Eyes: No Conjunctival Hemorrhage and Sclera Anicteric
Cardiovascular: Regular Rate and S1/S2
Pulmonary: Clear
Gastrointestinal: Soft, Non Tender and Non Distended
Genito-Urinary: Negative CVA Tenderness
Extremities: Negative Edema
Musculoskeletal: Other (Bilateral hips unremarkable.); Negative Spinal Tenderness
Wound: Other (right posterior prox forearm large wound - periphery with scab, underlying indurated tissue without drainage, + ecchymosis)
Neurological: AO x 3
Lab / Diagnostic Study Results
01/12/25 09:27
01/12/25 09:27
Abs Immat Gran (auto) 0.1 10^3/uL (0-0.05) H 01/10/25 11:25
Absolute Neuts (auto) 3.4 10^3/uL (1.4-6.5) 01/10/25 11:25
Absolute Lymphs (auto) 1.7 10^3/uL (1.2-3.4) 01/10/25 11:25
Absolute Monos (auto) 0.9 10^3/uL (0.1-0.6) H 01/10/25 11:25
Absolute Basos (auto) 0.1 10^3/uL (0-0.2) 01/10/25 11:25
Immature Gran % 1.3 % (0-0.5) H 01/10/25 11:25
Neutrophils % 53.8 % (42.2-75.2) 01/10/25 11:25
Lymphocytes % 26.5 % (20.5-51.1) 01/10/25 11:25
Monocytes % 14.3 % (1.7-9.3) H 01/10/25 11:25
Eosinophils % 3.0 % (0-6) 01/10/25 11:25
Basophils % 1.1 % (0-2) 01/10/25 11:25
Lactic Acid 1.4 mmol/L (0.7-2.0) 01/10/25 11:45
Urine WBC 6-10 /HPF (0-5) A 01/10/25 15:53
Ur Squamous Epith Cells >30 /LPF (Few) 01/10/25 18:38
Microbiology Results
Micro:
01/10/25 11:45 Blood Culture - Preliminary
Blood/Venous Staphylococcus aureus
Gram Stain - Final
01/10/25 11:47 Blood Culture - Preliminary
Blood/Venous Positive culture in progress
Gram Stain - Preliminary
01/10/25 11:16 Salmonella/Shigella Culture - Preliminary
Feces/Stool Culture in Progress
Campylobacter Culture - Preliminary
Culture in Progress
Shiga Toxin Test - Final
No E. coli Shiga Toxin 1 or 2 detected.
01/12/25 10:51 Blood Culture - Pending
Blood/Venous
01/10/25 18:38 Urine Culture - Final
Urine NO GROWTH
01/12/25 09:27 Blood Culture - Pending
Blood/Venous
01/10/25 12:21 Urine Culture - Final
Urine NO GROWTH
01/10/25 11:25 Influenza Types A & B (CELESTINE) - Final
Nasal Swab Negative for Influenza A & B, NAAT
Negative results must be combined with clinical observations
and patient history.
Nucleic Acid Amplification test (NAAT)performed on the
[employer] platform.
01/10/25 CT a/p: limited evaluation of the organs of the abdomen without intravenous contrast.
01/11/25 XRAY R forearm: The osseous structures comprising the right radius and ulna appear intact without recent fracture or focal cortical bony destructive process.
Assessment / Plan
# Staph aureus bacteremia (2 sets)
- Suspect source from right forearm traumatic wound
- Repeat blood cx's until clear
-Ordered TTE
- Start cefazolin (renally dosed) for suspected MSSA
# Recent intractable N/V/D from Mounjaro side effects
# Pre-renal EDWARD - improving
--- NOTE | 2025-01-12 16:19 | CM ---
Met with patient to obtain information for assessment. Patient stated that he lives with his spouse in a two story home with two steps to enter. He described himself as independent with his ADLs, personal care, dressing and bathing. He and his
can do surg rn, cooking, cleaning and laundry. Patient drives and can get to his own appointments and do his own shopping. He has a cane and a walker but he does not use them anymore. He has never had VN and has not been to a SNF.
Patient has a prescription plan and uses, [facility] in [place] for all of his medications.
Patient's PCP is, Jan Larkin.
Patient stated that he feels physically he is at baseline and he would like to return home when medically cleared. He stated that his can transport him.
Plan: Case management will continue to follow and assist with discharge planning. Home, will watch for VN needs.
[2025-01-12] MEDS: KCL 20 MEQ PO (21:09)
[2025-01-12] MEDS: ANCEF 5 IV (21:09)
[2025-01-12] MEDS: LEXAPRO 10 MG PO (21:09)
[2025-01-12 23:30] VITALS: BP 125/60
[2025-01-13 06:51] LABS: Hematocrit 35.3 % (39.0-52.0); Hemoglobin 12.8 g/dL (13.0-18.0); Mean Corp Hgb Conc. 36.3 g/dL (33.0-37.0); Mean Platelet Volume 10.8 fL (7.4-10.4); Platelet Count 155 10^3/uL (130-400); Red Blood Cell Count 3.88 10^6/uL (4.70-6.10); White Blood Cell Count 4.9 10^3/uL (4.8-10.8)
[2025-01-13 07:09] LABS: ALT (SGPT) 17 U/L (0-50); AST (SGOT) 23 U/L (17-59); Albumin 3.2 g/dl (3.5-5.0); Alkaline Phosphatase 61 U/L (38-126); Blood Urea Nitrogen 42 mg/dl (9-20); Calcium 8.7 mg/dl (8.4-10.2); Carbon Dioxide 25 mmol/L (22-30); Chloride 108 mmol/L (98-107); Estimated Creatinine Clearance 34 ml/min; Glucose 88 mg/dl (70-99); Magnesium 1.2 mg/dl (1.6-2.3); Phosphorus 2.8 mg/dl (2.5-4.5); Potassium 3.6 mmol/L (3.5-5.1); Sodium 141 mmol/L (135-145); Total Bilirubin 0.5 mg/dl (0.2-1.3); Total Protein 5.6 g/dl (6.3-8.2); eGFR 25.52
[2025-01-13 07:22] VITALS: BP 139/89
[2025-01-13 07:29] LABS: Vancomycin Random 14.1 ug/ml
--- NOTE | 2025-01-13 07:30 | W.PN.HOSP.TC ---
Today's Communication/Plan
-
Continue IV fluids. The patient's creatinine continues to trend downwards with IV fluids and normal diet. The patient was hypomagnesemic with a value of 1.2�repleted.
Assessment / Plan
Assessment / Plan
Assessment/Plan:
-Acute renal failure from prerenal Acute kidney injury with anion gap metabolic acidosis:
Patient's sodium was 131, chloride was 102, bicarbonate was 8�calculated anion gap 21
Patient's creatinine on admission was 9.5, on 01/11/2025 it was 8.3, on 01/12/2025 it was 4.4, on 01/13/25 it was 2.7
Patient is hypovolemic due to ongoing GI fluid losses through vomiting and diarrhea
Patient was hypotensive with a blood pressure of 86/33
BUN was 90 and creatinine was 11.6 on admission
Discontinue angiotensin receptor jessica
Discontinue GLP-1
Appreciate nephrology recommendations�they recommend sterile water with 150 sodium bicarb at 150 cc an hour -continue
Maintain Salazar for now to determine I's and O's
Renally dosed medications
-Staph Aureus Bacteremia:
Blood culture taken on 01/10/2025 resulted positively for gram-positive cocci in clusters� positive for staph aureus �appreciate infectious diseases recommendations�renally dosed cefazolin started for suspected MSSA
Given renally dosed cefazolin given for suspected MSSA
Echocardiogram conducted on 01/13/25 showed a left ventricular ejection fraction of 55 to 60% by visual assessment with normal regional wall motion. Normal right ventricular size and function. Mildly thickened mitral valve leaflets with mild mitral
regurgitation. There was trace aortic regurgitation. Mild tricuspid regurgitation with an estimated pulmonary artery pressure of 15 to 20 mmHg. There was no findings suggestive of endocarditis.
-Nausea and vomiting:
Continue Zofran and pantoprazole
Diet has been advanced to regular as tolerated
-Ecchymosis of right forearm:
Ecchymosis with scabs seen on right forearm
Wound team consulted
X-ray unremarkable
-Hypomagnesemia:
Patient's magnesium on 01/12/2025 was 1.4 and on 01/13/25 it was 1.2.
Magnesium repleted
-Essential hypertension:
Patient is currently hypotensive on admission -holding all blood pressure medications especially angiotensin receptor blockers as the patient has EDWARD
May resume a calcium channel jessica like amlodipine once hemodynamics stabilize
-Hyperlipidemia:
Continue rosuvastatin
-GERD:
Continue pantoprazole
-Depression/anxiety:
Continue escitalopram
-History of Parkinson's
Not on standard treatment
Has been diagnosed by 3 different neurologists in the past as per history taken from patient
-History of Grovers disease:
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
Hydrocortisone 2.5% cream added
CODE STATUS: Full
Stress Ulcer Prophylaxis: Pantoprazole
DVT Prophylaxis: Sequential compression devices
Imaging:
-Abdominal CT conducted on 01/10/2025:
IMPRESSION:
Limited evaluation of the organs of the abdomen without intravenous contrast.
Contracted gallbladder with likely tiny stone. No gross findings to suggest biliary tract dilatation.
Opacified distal large bowel with virtually completely decompressed descending and sigmoid colon with suspected diverticulosis. No intestinal obstruction or free air.
Prior surgery with metal hardware in the lumbar spine and bilateral hip arthroplasties resulting in marked beam hardening artifact significantly obscuring the soft tissues of the true pelvis including the urinary bladder.
Moderate bilateral perinephric stranding limited in evaluation without intravenous contrast.
-Echocardiogram conducted on 01/13/25:
LV ejection fraction is 55-60%, by visual assessment. Normal regional wall motion.
Normal right ventricular size and function.
Mildly thickened mitral valve leaflets. Mild mitral regurgitation.
Trileaflet aortic valve. Aortic valve opens normally. Trace aortic regurgitation.
Tricuspid valve opens normally. Mild tricuspid regurgitation. Estimated pulmonary artery pressure of 15-20 mmHg.
No prior study available for comparison.
No findings suggestive of endocarditis; however, limited sensitivity via transthoracic echocardiogram modality.
Procedures: N/A
Anticipated Discharge: > 48 hours
Subjective/Interval History
-
Date of Service: January 13, 2025
Met with patient at the bedside. Overall, he is doing much better than he did on admission. His nausea is mostly resolved and he did not request Zofran today. He was planning on trying to eat his breakfast without Zofran to see how irritable his
stomach is.
Objective Data
-
Labs:
Laboratory Results
01/13/25
06:34
WBC 4.9
Hgb 12.8 L
Hct 35.3 L
Plt Count 155
Sodium 141
Potassium 3.6
Chloride 108 H
Carbon Dioxide 25
BUN 42 H
Creatinine 2.7 H
Glucose 88
Calcium 8.7
Total Bilirubin 0.5
AST 23
ALT 17
Alkaline Phosphatase 61
Vital Signs:
Vital Signs
Temp Pulse Resp BP Pulse Ox
98.6 F 79 16 139/89 96
01/13/25 07:22 01/13/25 07:22 01/13/25 07:22 01/13/25 07:22 01/13/25 10:02
I&O
01/12/25 01/13/25 01/14/25
06:59 06:59 06:59
Intake Total 1250 / 1250 2950 / 2950
Output Total 1625 / 1625 2550 / 2550
Balance -375 / -375 400 / 400
Review of Systems
-
History Source: Patient
Constitutional: Reports No Symptoms
Respiratory: Reports No Symptoms
Cardiac: Reports No Symptoms
Abdomen/GI: Reports Nausea (Minimal)
Breast: Reports No Symptoms
Genitourinary: Reports No Symptoms
Musculoskeletal: Reports No Symptoms
Skin: Reports No Symptoms
Neuro: Reports No Symptoms
Endocrine: Reports No Symptoms
Hematologic / Lymphatic: Reports No Symptoms
Physical Exam
-
General: Well Developed, Well Nourished, No Apparent Distress and Comfortable
HEENT: Normocephalic, Atraumatic and Moist Mucous Membranes
Respiratory: Clear to Auscultation
Cardiac: S1/S2; Negative Murmur or Rub
Breast: Deferred by me
GI: Soft, Nontender, Nondistended and Normal Bowel Sounds
Rectal: Deferred by Provider
Genito-urinary: Deferred by me
Musculoskeletal: No Clubbing, No Cyanosis and No Edema
Skin: Warm, Dry and Lesions (Right forearm); Negative Rash or Ulcers
Neuro: Awake, Alert and Oriented
Psych: Calm
[2025-01-13] MEDS: NSS 1000 IV (09:15)
[2025-01-13] MEDS: PROTONIX 40 MG PO ×2 (09:16→22:46)
[2025-01-13] MEDS: HYDROCORTISONE 2.5% CREAM 1 APPLIC TOPICAL ×2 (09:16→22:46)
[2025-01-13] MEDS: CRESTOR 10 MG PO (09:16)
[2025-01-13] MEDS: VITAMIN D3 (cholecalciferol) 25 MCG PO (09:16)
--- NOTE | 2025-01-13 09:59 | PHA.VAN.FU ---
Vancomycin Assessment / Plan
- Assessment
Renal Function: SCR Decreasing
WBC's are: WNL
In the past 24 hrs, patient has been: Afebrile
Concomitant Antimicrobials: cefazolin
- Assessment - Therapeutic Drug Monitoring
Random Level: 14.1 - drawn ~15.5H after 2g loading dose
- Dosing Plan
Dosing by Level: Re-dose today (Vanc 1000mg)
- Monitoring Plan
Random Level: 01/14 0600
- Follow Up
Pharmacy will continue to follow.
Vancomycin Follow UP
- -
Patient Age: 64
Patient Sex: Male
Vancomycin Day #: 2
Indication: Bacteremia
Requesting Provider: Dr. Sharp / Dr. Teresa
Pertinent Antimicrobial Allergies:
no pertinent antibiotic allergies
Height / Weight:
Height 5 ft 9 in
Actual Weight 110.1 kg
Pertinent Past Medical History: BMI ~36
- Vital Signs / Lab Results
Temp Pulse Resp BP Pulse Ox
98.6 F 79 16 139/89 96
01/13/25 07:22 01/13/25 07:22 01/13/25 07:22 01/13/25 07:22 01/13/25 07:22
Lab Results - Hematology
01/10/25 01/10/25 01/11/25
11:25 18:17 07:23
WBC 6.4 Cancelled 5.0
01/12/25 01/13/25
09:27 06:34
WBC 4.9 4.9
Lab Results - Chemistry
01/10/25 01/10/25 01/10/25
11:25 18:17 23:04
BUN 90 H Cancelled 86 H
Creatinine 11.6 H* Cancelled 9.5 H*
Estimated Creat Clear 8 Cancelled 10
Albumin 4.1 Cancelled
01/11/25 01/12/25 01/13/25
07:23 09:27 06:34
BUN 81 H 65 H 42 H
Creatinine 8.3 H* 4.4 H* 2.7 H
Estimated Creat Clear 11
Albumin 3.0 L 3.1 L 3.2 L
01/10/25
11:45
Lactic Acid 1.4
Microbiology Results
01/12/25 09:27 Blood Culture - Preliminary
Blood/Venous No Growth in 24 hours- Final report to follow
01/10/25 11:45 Blood Culture - Preliminary
Blood/Venous Staphylococcus aureus
Gram Stain - Final
01/10/25 11:47 Blood Culture - Preliminary
Blood/Venous Positive culture in progress
Gram Stain - Preliminary
01/10/25 11:16 Salmonella/Shigella Culture - Preliminary
Feces/Stool Culture in Progress
Campylobacter Culture - Preliminary
Culture in Progress
Shiga Toxin Test - Final
No E. coli Shiga Toxin 1 or 2 detected.
01/10/25 18:38 Urine Culture - Final
Urine NO GROWTH
01/10/25 12:21 Urine Culture - Final
Urine NO GROWTH
Therapeutic Drug Monitoring
Random Vancomycin 14.1 ug/ml 01/13/25 06:34
[2025-01-13] MEDS: MAGNESIUM SULFATE 100 IV (10:48)
[2025-01-13] MEDS: ANCEF 5 IV (10:48)
[2025-01-13] MEDS: VANCOCIN 200 IV (11:58)
--- NOTE | 2025-01-13 13:22 | W.PN.UPDATE ---
Update Note
Progress Note Update
Seen and examined by me independently in collaboration with the medical cost consultant.
Lab data and imaging data reviewed.
Addendum as below :
No GI symptoms. Tolerating diet. Denies shortness of breath.
Chest clear.
Continued drop in creatinine today 2.7.
Blood cultures now reporting as coagulase-negative staph 2 out of 2 bottles. Repeat cultures negative so far. TTE shows no evidence of endocarditis. Will follow ID recommendations regarding antibiotics.
DC planning
--- NOTE | 2025-01-13 14:34 | PN.CDI ---
CDI
- -
CDI:
Physician Documentation Request
Admit Date: 01/10/25 15:39
Dear Doctor Aron,
Clinical Indicators:
The diagnosis of Pancreatitis was documented on 01/10 in ED record, but is not consistently noted in subsequent documentation.
Lipase
Laboratory Tests
01/10/25 01/11/25
07:23
Lipase 866 H 578 H
Please clarify the following:
____ - Pancreatitis was present on admission
____ - Pancreatitis was ruled out
____ - Other
Use of terms such as suspected, likely, concern for, or probable (associated with a specific diagnosis that is being evaluated, monitored, or treated as if it exists) are acceptable and can be coded in the inpatient setting, when documented at the
time of discharge.
Thank you,
Coleen Lu RN BSN
CDI Specialist
tiger text
Please use your independent medical judgment in providing your response.
[2025-01-13 15:04] VITALS: BP 115/71
--- NOTE | 2025-01-13 15:46 | W.PN.ID1 ---
Date of Service
Date of Service: January 13, 2025
Today's Communication
DC antibiotics and observe.
Assessment / Plan
# CoNS bacteremia 2 sets drawn 2 min apart, (previously incorrectly reported as S. aureus)
- CoNS considered contaminant.
- No signs and sxs of infection over bilateral SHWETA nor spine HW
- TTE no gross vegetations
- Repeat blood cx's neg
-DC Vancomycin and cefazolin
# Recent intractable N/V/D from Mounjaro side effects
# Pre-renal EDWARD - improving
Chief Complaint
-: Bacteremia
Subjective / Review of Systems
Continues to feel improved. No diarrhea today. Nausea resolving. Voiding.
Vital Signs / Physical Exam
Vital Signs
Vital Signs
Temp Pulse Resp BP Pulse Ox
98.2 F 77 18 115/71 95
01/13/25 15:04 01/13/25 15:04 01/13/25 15:04 01/13/25 15:04 01/13/25 15:04
Physical Exam
Constitutional: No Acute Distress and Comfortable
Cardiovascular: Regular Rate and S1/S2
Pulmonary: Clear
Gastrointestinal: Soft, Non Tender, Non Distended and Normal Bowel Sounds
Genito-Urinary: Negative CVA Tenderness
Extremities: Negative Edema
Musculoskeletal: Negative Joint Swelling (bilat hips) or Spinal Tenderness
Wound: Other (Right posterior forearm hematoma wound - dry, no drainage. )
Neurological: AO x 3
Objective Data
Lab Data
Lab Results
01/13/25 06:34
01/13/25 06:34
Estimated Creat Clear 34 ml/min 01/13/25 06:34
Lactic Acid 1.4 mmol/L (0.7-2.0) 01/10/25 11:45
Total Bilirubin 0.5 mg/dl (0.2-1.3) 01/13/25 06:34
AST 23 U/L (17-59) 01/13/25 06:34
ALT 17 U/L (0-50) 01/13/25 06:34
Alkaline Phosphatase 61 U/L (38-126) 01/13/25 06:34
Most recent labs reviewed.
Micro Results:
01/10/25 11:47 Blood Culture - Preliminary
Blood/Venous Coagulase neg. staphylococcus
Gram Stain - Preliminary
01/10/25 11:45 Blood Culture - Preliminary
Blood/Venous Coagulase neg. staphylococcus
Gram Stain - Final
01/13/25 06:34 Blood Culture - Pending
Blood/Venous
01/10/25 11:16 Salmonella/Shigella Culture - Preliminary
Feces/Stool Culture in Progress
Campylobacter Culture - Final
No Campylobacter species isolated.
Shiga Toxin Test - Final
No E. coli Shiga Toxin 1 or 2 detected.
01/12/25 10:51 Blood Culture - Preliminary
Blood/Venous No Growth in 24 hours- Final report to follow
01/12/25 09:27 Blood Culture - Preliminary
Blood/Venous No Growth in 24 hours- Final report to follow
01/10/25 18:38 Urine Culture - Final
Urine NO GROWTH
01/10/25 12:21 Urine Culture - Final
Urine NO GROWTH
01/10/25 11:25 Influenza Types A & B (CELESTINE) - Final
Nasal Swab Negative for Influenza A & B, NAAT
Negative results must be combined with clinical observations
and patient history.
Nucleic Acid Amplification test (NAAT)performed on the
[employer] platform.
01/10/25 CT a/p: limited evaluation of the organs of the abdomen without intravenous contrast.
01/11/25 XRAY R forearm: The osseous structures comprising the right radius and ulna appear intact without recent fracture or focal cortical bony destructive process.
--- NOTE | 2025-01-13 17:04 | VATNOTE ---
unsuccessful IV restart x3 ; another VAT RN to attempt.
--- NOTE | 2025-01-13 17:53 | W.PN.NEPH.PH ---
Today's Communication / Plan
-
wean off IVF
Assessment/Plan
-
Impression:
EDWARD (baseline 1.03 11/26/24) presented with creatinine of 11.6
History of CK D with creatinine of 1.03 with underlying proteinuria
Nausea, vomiting, diarrhea or abdominal pain, suspected due to GLP-1
Metabolic acidosis (AG 21)
Obesity
Hyperlipidemia
Plan:
cr improving to 2.7
follow BMP
wean off IVF NSS tonight
If Cr improve to < 2 by Sunday (his trip to [place]) and have no objection to travel from renal standpoint.
-
-
Date of Service: January 13, 2025
CC / HPI / ROS
-
Chief Complaint:
Acute kidney injury
History of Present Illness:
Creatinine improving to 2.7
K better at 3.6
Hemodynamically stable
acidosis resolved
Review of Systems:
Nonoliguric via Salazar catheter
No chest pain or shortness of breath
mild nausea in morning but improve later, tolerating diet
Labs
-
Labs:
WBC 4.9 10^3/uL (4.8-10.8) 01/13/25 06:34
RBC 3.88 10^6/uL (4.70-6.10) L 01/13/25 06:34
Hgb 12.8 g/dL (13.0-18.0) L 01/13/25 06:34
Hct 35.3 % (39.0-52.0) L 01/13/25 06:34
Plt Count 155 10^3/uL (130-400) 01/13/25 06:34
Sodium 141 mmol/L (135-145) 01/13/25 06:34
Potassium 3.6 mmol/L (3.5-5.1) 01/13/25 06:34
Chloride 108 mmol/L (98-107) H 01/13/25 06:34
Carbon Dioxide 25 mmol/L (22-30) 01/13/25 06:34
BUN 42 mg/dl (9-20) H 01/13/25 06:34
Creatinine 2.7 mg/dL (0.7-1.3) H 01/13/25 06:34
eGFR 25.52 01/13/25 06:34
Glucose 88 mg/dl (70-99) 01/13/25 06:34
Calcium 8.7 mg/dl (8.4-10.2) 01/13/25 06:34
Phosphorus 2.8 mg/dl (2.5-4.5) 01/13/25 06:34
Albumin 3.2 g/dl (3.5-5.0) L 01/13/25 06:34
Physical Exam
-
Vital Signs:
Vital Signs
Temp Pulse Resp BP Pulse Ox
98.2 F 77 18 115/71 95
01/13/25 15:04 01/13/25 15:04 01/13/25 15:04 01/13/25 15:04 01/13/25 15:04
Cardiovascular:: Regular rate and rhythm
Respiratory:: Bilateral: CTA
Lung Excursion:: Normal
Abdomen:: Nontender and Soft
Extremity Edema:: None: Bilateral:
Salazar Catheter: No
[2025-01-13] MEDS: LEXAPRO 10 MG PO (22:46)
[2025-01-13 23:00] VITALS: BP 141/79
[2025-01-13] MEDS: ZOFRAN 4 MG IV (23:08)
[2025-01-13] MEDS: ROXICODONE 5 MG PO (23:13)
[2025-01-14 06:00] VITALS: BMI 36.7
[2025-01-14] MEDS: ZOFRAN 4 MG IV (06:25)
[2025-01-14 07:03] LABS: Hematocrit 33.6 % (39.0-52.0); Hemoglobin 11.6 g/dL (13.0-18.0); Mean Corp Hgb Conc. 34.5 g/dL (33.0-37.0); Mean Corpuscular Hgb 32.9 pg (27.0-31.0); Mean Corpuscular Volume 95.2 fL (80.0-94.0); Mean Platelet Volume 11.1 fL (7.4-10.4); Platelet Count 152 10^3/uL (130-400); Red Blood Cell Count 3.53 10^6/uL (4.70-6.10); Red Cell Dist. Width 12.1 % (11.5-14.5); White Blood Cell Count 4.6 10^3/uL (4.8-10.8)
[2025-01-14 07:11] LABS: Vancomycin Random 11.6 ug/ml
[2025-01-14 07:24] VITALS: BP 129/77
[2025-01-14 07:24] LABS: ALT (SGPT) 18 U/L (0-50); AST (SGOT) 28 U/L (17-59); Albumin 3.3 g/dl (3.5-5.0); Alkaline Phosphatase 64 U/L (38-126); Blood Urea Nitrogen 23 mg/dl (9-20); Calcium 8.4 mg/dl (8.4-10.2); Carbon Dioxide 28 mmol/L (22-30); Chloride 103 mmol/L (98-107); Estimated Creatinine Clearance 54 ml/min; Glucose 89 mg/dl (70-99); Phosphorus 2.4 mg/dl (2.5-4.5); Potassium 3.3 mmol/L (3.5-5.1); Sodium 139 mmol/L (135-145); Total Bilirubin 0.7 mg/dl (0.2-1.3); Total Protein 5.5 g/dl (6.3-8.2); eGFR 44.46
[2025-01-14 07:30] VITALS: BP 122/60
--- NOTE | 2025-01-14 07:40 | W.PN.HOSP.TC ---
Addendum entered and electronically signed by Chriss Bowie MD 01/14/25 16:47:
Elevated lipase but no abdominal pain on the noncontrast CT of the pancreas was normal. Available data points Does not support pancreatitis.
Addendum entered and electronically signed by Chriss Bowie MD 01/14/25 16:07:
Seen and examined by me independently in collaboration with the medical practice manager.
Lab data and imaging data reviewed.
Addendum as below :
Patient without GI symptoms. Tolerating diet. Voices no specific complaints.
Creatinine improved to 1.7. Renally stable for discharge and follow-up with a BMP starting of next week. Discussed with the renal today.
Coagulase-negative staph bacteremia felt contaminant and antibiotics discontinued. Appreciate ID input.
DC home today.
Total time of discharge 32 minutes
Original Note:
Today's Communication/Plan
-
Antibiotics have been discontinued after further lab investigations confirm that the patient does not have Staph aureus bacteremia. The acute phase of this patient's nausea vomiting and diarrhea appears to be resolving and we will begin to move
forward with discharge planning.
Assessment / Plan
Assessment / Plan
Assessment/Plan:
-Acute renal failure from prerenal Acute kidney injury with anion gap metabolic acidosis: Improving/resolving
Patient's sodium was 131, chloride was 102, bicarbonate was 8�calculated anion gap 21
Patient's creatinine on admission was 9.5, on 01/11/2025 it was 8.3, on 01/12/2025 it was 4.4, on 01/13/25 it was 2.7, on 01/14/2025 it was 1.7
Patient is hypovolemic due to ongoing GI fluid losses through vomiting and diarrhea
Patient was hypotensive with a blood pressure of 86/33
BUN was 90 and creatinine was 11.6 on admission
Discontinue angiotensin receptor jessica
Discontinue GLP-1 -Mounjaro the likely cause of the patient's nausea, vomiting, and diarrhea
Appreciate nephrology recommendations�they recommend sterile water with 150 sodium bicarb at 150 cc an hour -continue
Maintain Salazar for now to determine I's and O's
Renally dosed medications
-<del>Staph</del> <del>Aureus</del> <del>Bacteremia</del>: Ruled out
Blood culture taken on 01/10/2025 resulted positively for gram-positive cocci in clusters� <del>positive</del> <del>for</del> <del>staph</del> <del>aureus</del> �this was a clerical error having to do with mecA gene being used as an indicator during
early micro results. Patient does NOT have staph aureus bacteremia. Subsequent blood cultures are negative�antibiotics discontinued
Given renally dosed cefazolin given for suspected MSSA
Echocardiogram conducted on 01/13/25 showed a left ventricular ejection fraction of 55 to 60% by visual assessment with normal regional wall motion. Normal right ventricular size and function. Mildly thickened mitral valve leaflets with mild mitral
regurgitation. There was trace aortic regurgitation. Mild tricuspid regurgitation with an estimated pulmonary artery pressure of 15 to 20 mmHg. There was no findings suggestive of endocarditis.
-Pancreatitis:
Patient presented to the emergency department with lipase of 866
Lipase trended down to 578 on 01/11/2025
Likely secondary to Mounjaro use
-Constipation:
The patient has not had a bowel movement since 01/12/2025
Metamucil added
-Nausea and vomiting: Monitoring
Continue Zofran and pantoprazole
Diet has been advanced to regular as tolerated
-Ecchymosis of right forearm: Stable
Ecchymosis with scabs seen on right forearm
Wound team consulted
X-ray unremarkable
-Hypomagnesemia: Unresolved
Patient's magnesium on 01/12/2025 was 1.4, on 01/13/25 it was 1.2, on 01/14/2025 it was 1.0
Magnesium repleted again on 01/14/2025
-Essential hypertension: Monitoring
Patient is currently hypotensive on admission -holding all blood pressure medications especially angiotensin receptor blockers as the patient has EDWARD
May resume a calcium channel jessica like amlodipine once hemodynamics stabilize
-Hyperlipidemia: Stable
Continue rosuvastatin
-GERD: Stable
Continue pantoprazole
-Depression/anxiety: Stable
Continue escitalopram
-History of Parkinson's: Monitoring
Not on standard treatment
Has been diagnosed by 3 different neurologists in the past as per history taken from patient
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
Patient has a red rash across the chest present on admission�stated that he has a history of Grovers disease as diagnosed by advice clerk
Hydrocortisone 2.5% cream added
CODE STATUS: Full
Stress Ulcer Prophylaxis: Pantoprazole
DVT Prophylaxis: Sequential compression devices
Imaging:
-Abdominal CT conducted on 01/10/2025:
IMPRESSION:
Limited evaluation of the organs of the abdomen without intravenous contrast.
Contracted gallbladder with likely tiny stone. No gross findings to suggest biliary tract dilatation.
Opacified distal large bowel with virtually completely decompressed descending and sigmoid colon with suspected diverticulosis. No intestinal obstruction or free air.
Prior surgery with metal hardware in the lumbar spine and bilateral hip arthroplasties resulting in marked beam hardening artifact significantly obscuring the soft tissues of the true pelvis including the urinary bladder.
Moderate bilateral perinephric stranding limited in evaluation without intravenous contrast.
-Echocardiogram conducted on 01/13/25:
LV ejection fraction is 55-60%, by visual assessment. Normal regional wall motion.
Normal right ventricular size and function.
Mildly thickened mitral valve leaflets. Mild mitral regurgitation.
Trileaflet aortic valve. Aortic valve opens normally. Trace aortic regurgitation.
Tricuspid valve opens normally. Mild tricuspid regurgitation. Estimated pulmonary artery pressure of 15-20 mmHg.
No prior study available for comparison.
No findings suggestive of endocarditis; however, limited sensitivity via transthoracic echocardiogram modality.
Procedures: N/A
Anticipated Discharge: Today
Subjective/Interval History
-
Date of Service: January 14, 2025
Met with patient at the bedside. Last evening he was having bouts of nausea which reduced his appetite greatly and he did not eat much. The nausea is ongoing and despite receiving Zofran he continues to have breakthrough nausea. He is unsure if
he will be able to have much of a breakfast today.
Objective Data
-
Labs:
Laboratory Results
01/14/25
06:32
WBC 4.6 L
Hgb 11.6 L
Hct 33.6 L
Plt Count 152
Sodium 139
Potassium 3.3 L
Chloride 103
Carbon Dioxide 28
BUN 23 H
Creatinine 1.7 H
Glucose 89
Calcium 8.4
Total Bilirubin 0.7
AST 28
ALT 18
Alkaline Phosphatase 64
Vital Signs:
Vital Signs
Temp Pulse Resp BP Pulse Ox
98.1 F 72 16 122/60 96
01/14/25 07:30 01/14/25 07:30 01/14/25 07:30 01/14/25 07:30 01/14/25 07:30
I&O
01/13/25 01/14/25 01/15/25
06:59 06:59 06:59
Intake Total 2950 / 2950 1260 / 1260
Output Total 2550 / 2550
Balance 400 / 400 1260 / 1260
Review of Systems
-
History Source: Patient
Constitutional: Reports No Symptoms
EENT: Reports No Symptoms Reported
Respiratory: Reports No Symptoms
Cardiac: Reports No Symptoms
Abdomen/GI: Reports Nausea
Breast: Reports No Symptoms
Genitourinary: Reports No Symptoms
Musculoskeletal: Reports No Symptoms
Skin: Reports No Symptoms
Neuro: Reports No Symptoms
Endocrine: Reports No Symptoms
Hematologic / Lymphatic: Reports No Symptoms
Physical Exam
-
General: Well Developed, Well Nourished and Obese
HEENT: Normocephalic, Atraumatic and Moist Mucous Membranes
Respiratory: Clear to Auscultation; Negative Wheezes, Rales or Rhonchi
Cardiac: Regular Rhythm and S1/S2; Negative Murmur, Rub or JVD
Breast: Deferred by me
GI: Soft, Nontender, Nondistended and Normal Bowel Sounds
Rectal: Deferred by Provider
Genito-urinary: Deferred by me
Musculoskeletal: No Clubbing, No Cyanosis and No Edema
Skin: Warm, Dry and Lesions (Right forearm ecchymosis with scab); Negative Rash or Ulcers
Neuro: Awake, Alert, Oriented and AO x 3
Psych: Calm
[2025-01-14] MEDS: PROTONIX 40 MG PO (08:34)
[2025-01-14] MEDS: CRESTOR 10 MG PO (08:34)
[2025-01-14] MEDS: HYDROCORTISONE 2.5% CREAM 1 APPLIC TOPICAL (08:34)
[2025-01-14] MEDS: VITAMIN D3 (cholecalciferol) 25 MCG PO (08:34)
[2025-01-14] MEDS: MAGNESIUM SULFATE 100 IV (10:02)
[2025-01-14] MEDS: METAMUCIL, KONSYL 1 PACKET PO (10:02)
--- NOTE | 2025-01-14 13:17 | CM ---
Reviewed activity documentation. Patient is functioning at baseline level, still needing acute care.
Plan: Case management will continue to follow and assist with discharge planning. Home when cleared.
--- NOTE | 2025-01-14 14:21 | W.PN.ID1 ---
Date of Service
Date of Service: January 14, 2025
Today's Communication
ID will sign off.
Assessment / Plan
# CoNS bacteremia 2 sets drawn 2 min apart, (previously incorrectly reported as S. aureus)
- CoNS considered contaminant.
- No signs and sxs of infection over bilateral SHWETA nor spine HW
- TTE no gross vegetations
- Repeat blood cx's remain neg.
- Observe off abx.
# Recent intractable N/V/D from Mounjaro side effects
# Pre-renal EDWARD - improving
ID signing off.
Chief Complaint
-: Bacteremia
Subjective / Review of Systems
Doing well.
Vital Signs / Physical Exam
Vital Signs
Vital Signs
Temp Pulse Resp BP Pulse Ox
98.1 F 72 16 122/60 96
01/14/25 07:30 01/14/25 07:30 01/14/25 07:30 01/14/25 07:30 01/14/25 08:26
Physical Exam
Constitutional: No Acute Distress
Cardiovascular: Regular Rate and S1/S2
Pulmonary: Clear
Gastrointestinal: Soft, Non Tender, Non Distended and Normal Bowel Sounds
Genito-Urinary: Negative CVA Tenderness
Extremities: Negative Edema
Musculoskeletal: Negative Joint Swelling (bilat hips) or Spinal Tenderness
Wound: Other (Right posterior forearm hematoma wound - dry, no drainage. )
Neurological: AO x 3
Objective Data
Lab Data
Lab Results
01/14/25 06:32
01/14/25 06:32
Estimated Creat Clear 54 ml/min 01/14/25 06:32
Lactic Acid 1.4 mmol/L (0.7-2.0) 01/10/25 11:45
Total Bilirubin 0.7 mg/dl (0.2-1.3) 01/14/25 06:32
AST 28 U/L (17-59) 01/14/25 06:32
ALT 18 U/L (0-50) 01/14/25 06:32
Alkaline Phosphatase 64 U/L (38-126) 01/14/25 06:32
Most recent labs reviewed.
Micro Results:
01/10/25 11:47 Blood Culture - Preliminary
Blood/Venous Coagulase neg. staphylococcus
Gram Stain - Preliminary
01/10/25 11:16 Salmonella/Shigella Culture - Final
Feces/Stool No Salmonella, Shigella, Aeromonas or Plesiomonas species
isolated.
Campylobacter Culture - Final
No Campylobacter species isolated.
Shiga Toxin Test - Final
No E. coli Shiga Toxin 1 or 2 detected.
01/12/25 10:51 Blood Culture - Preliminary
Blood/Venous No Growth in 48 hours- Final report to follow
01/12/25 09:27 Blood Culture - Preliminary
Blood/Venous No Growth in 48 hours- Final report to follow
01/10/25 11:45 Blood Culture - Preliminary
Blood/Venous Coagulase neg. staphylococcus
Gram Stain - Final
01/13/25 06:34 Blood Culture - Preliminary
Blood/Venous No Growth in 24 hours- Final report to follow
01/10/25 18:38 Urine Culture - Final
Urine NO GROWTH
01/10/25 12:21 Urine Culture - Final
Urine NO GROWTH
01/10/25 11:25 Influenza Types A & B (CELESTINE) - Final
Nasal Swab Negative for Influenza A & B, NAAT
Negative results must be combined with clinical observations
and patient history.
Nucleic Acid Amplification test (NAAT)performed on the
[employer] platform.
01/10/25 CT a/p: limited evaluation of the organs of the abdomen without intravenous contrast.
01/11/25 XRAY R forearm: The osseous structures comprising the right radius and ulna appear intact without recent fracture or focal cortical bony destructive process.
--- NOTE | 2025-01-14 14:36 | W.PN.NEPH.PH ---
Today's Communication / Plan
-
Stable for discharge off antihypertensives
Needs BMP forwarded to his kidney physician late this week
Replete potassium and magnesium
Assessment/Plan
-
Impression:
EDWARD (baseline 1.03 11/26/24) presented with creatinine of 11.6
History of CK D with creatinine of 1.03 with underlying proteinuria
Nausea, vomiting, diarrhea or abdominal pain, suspected due to GLP-1
Metabolic acidosis (AG 21)
Obesity
Hyperlipidemia
Plan:
cr improving to 1.7
Stable for discharge
Replete potassium and magnesium
I would hold patient's antihypertensives and instructed him not to restart his amlodipine olmesartan until his systolic blood pressure start climbing up over 140 systolic
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
He should have a repeat BMP sent to his show jumping instructor at [place] later this week
-
-
Date of Service: January 14, 2025
CC / HPI / ROS
-
Chief Complaint:
Acute kidney injury
History of Present Illness:
Creatinine improving to 1.7
K better at 3.3
Hemodynamically stable
acidosis resolved
Review of Systems:
Nonoliguric
No chest pain or shortness of breath
mild nausea in morning but improve later, tolerating diet
Labs
-
Labs:
WBC 4.6 10^3/uL (4.8-10.8) L 01/14/25 06:32
RBC 3.53 10^6/uL (4.70-6.10) L 01/14/25 06:32
Hgb 11.6 g/dL (13.0-18.0) L 01/14/25 06:32
Hct 33.6 % (39.0-52.0) L 01/14/25 06:32
Plt Count 152 10^3/uL (130-400) 01/14/25 06:32
Sodium 139 mmol/L (135-145) 01/14/25 06:32
Potassium 3.3 mmol/L (3.5-5.1) L 01/14/25 06:32
Chloride 103 mmol/L (98-107) 01/14/25 06:32
Carbon Dioxide 28 mmol/L (22-30) 01/14/25 06:32
BUN 23 mg/dl (9-20) H 01/14/25 06:32
Creatinine 1.7 mg/dL (0.7-1.3) H 01/14/25 06:32
eGFR 44.46 01/14/25 06:32
Glucose 89 mg/dl (70-99) 01/14/25 06:32
Calcium 8.4 mg/dl (8.4-10.2) 01/14/25 06:32
Phosphorus 2.4 mg/dl (2.5-4.5) L 01/14/25 06:32
Albumin 3.3 g/dl (3.5-5.0) L 01/14/25 06:32
Physical Exam
-
Vital Signs:
Vital Signs
Temp Pulse Resp BP Pulse Ox
98.1 F 72 16 122/60 96
01/14/25 07:30 01/14/25 07:30 01/14/25 07:30 01/14/25 07:30 01/14/25 08:26
Cardiovascular:: Regular rate and rhythm
Respiratory:: Bilateral: CTA
Lung Excursion:: Normal
Abdomen:: Nontender and Soft
Extremity Edema:: None: Bilateral:
Salazar Catheter: No
[2025-01-14 15:00] VITALS: BP 129/82
[2025-01-14 16:00] VITALS: BP 117/69
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
== END 2025-01-14 17:21 | disposition home or self-care (01) | DRG 683 ==
LOC: 3 WEST ACU 15:39
PROVIDERS: Registered Nurse; ADMITTING PHYSICIAN Internal Medicine; ATTENDING PHYSICIAN Internal Medicine; CONSULT PHYSICIAN Internal Medicine Infectious Disease; CONSULT PHYSICIAN Specialist; EMERGENCY PHYSICIAN Emergency Medicine; FAMILY PHYSICIAN Family Medicine
DX: N17.9 Acute kidney failure, unspecified (principal); E87.1 Hypo-osmolality and hyponatremia; E87.20 Acidosis, unspecified; E86.1 Hypovolemia; K59.00 Constipation, unspecified; E78.00 Pure hypercholesterolemia, unspecified; I10 Essential (primary) hypertension; Z82.49 Family history of ischemic heart disease and other diseases of the circulatory system; K21.9 Gastro-esophageal reflux disease without esophagitis; F41.9 Anxiety disorder, unspecified; F32.A Depression, unspecified; G20.A1 Parkinson's disease without dyskinesia, without mention of fluctuations; L11.1 Transient acantholytic dermatosis [Grover]; M10.9 Gout, unspecified; Z96.643 Presence of artificial hip joint, bilateral; Z87.891 Personal history of nicotine dependence; Z80.9 Family history of malignant neoplasm, unspecified; Z83.3 Family history of diabetes mellitus; Z11.52 Encounter for screening for COVID-19; Z79.899 Other long term (current) drug therapy; E66.813 Obesity, class 3; Z68.36 Body mass index [BMI] 36.0-36.9, adult; Z98.1 Arthrodesis status; S40.021A Contusion of right upper arm, initial encounter
CPT/HCPCS: 51702; 73090; 74176; 80048; 80053; 80202; 81003; 81015; 82570; 82607; 83605; 83690; 83735; 83935; 84100; 84156; 84300; 84443; 85025; 85027; 87040; 87045; 87046; 87086; 87147; 87150; 87186; 87205; 87427; 87502; 87811; 93005; 93306; 94760; 96361; 96374; 99285; J7030

== ENCOUNTER 2025-03-02 12:08 | Inpatient (IN) | payer BC, SELFPAY ==
[2025-02-27] VITALS (10 sets, daily range): BP systolic 126–154; BP diastolic 75–106; BMI 37.9; BMI 36.6
[2025-02-27 14:28] LABS: % Basophils 0.6 % (0-2); % Eosinophils 5.9 % (0-6); % Immature Granulocytes 1.3 % (0-0.5); % Lymphocytes 23.9 % (20.5-51.1); % Monocytes 10.6 % (1.7-9.3); % Neutrophils 57.7 % (42.2-75.2); Absolute Eosinophils 0.3 10^3/uL (0-0.7); Absolute Immature Granulocytes 0.1 10^3/uL (0-0.05); Absolute Lymphocytes 1.1 10^3/uL (1.2-3.4); Absolute Monocytes 0.5 10^3/uL (0.1-0.6); Absolute Neutrophils 2.7 10^3/uL (1.4-6.5); Hematocrit 38.4 % (39.0-52.0); Hemoglobin 13.2 g/dL (13.0-18.0); Mean Corp Hgb Conc. 34.4 g/dL (33.0-37.0); Mean Corpuscular Hgb 32.9 pg (27.0-31.0); Mean Corpuscular Volume 95.8 fL (80.0-94.0); Mean Platelet Volume 10.1 fL (7.4-10.4); Nucleated Red Blood Cells % 0 % (-); Platelet Count 146 10^3/uL (130-400); Red Blood Cell Count 4.01 10^6/uL (4.70-6.10); Red Cell Dist. Width 13.3 % (11.5-14.5); White Blood Cell Count 4.7 10^3/uL (4.8-10.8)
[2025-02-27 14:35] LABS: INR 0.87; PT 12.2 Sec (11.4-14.6)
[2025-02-27 14:50] LABS: Troponin I < 0.012 ng/ml
[2025-02-27 14:51] LABS: ALT (SGPT) 46 U/L (0-50); AST (SGOT) 46 U/L (17-59); Albumin 4.5 g/dl (3.5-5.0); Alkaline Phosphatase 83 U/L (38-126); Blood Urea Nitrogen 14 mg/dl (9-20); Carbon Dioxide 25 mmol/L (22-30); Chloride 105 mmol/L (98-107); Glucose 131 mg/dl (70-99); Potassium 4.6 mmol/L (3.5-5.1); Sodium 139 mmol/L (135-145); Total Bilirubin 1.1 mg/dl (0.2-1.3); Total Protein 7.1 g/dl (6.3-8.2); eGFR > 60.00
--- NOTE | 2025-02-27 15:30 | ED.GENMED ---
History of Present Illness
<JOSE J Watson - Last Filed: 02/27/25 18:52>
General
Chief Complaint: Breathing Problem
Source: patient and spouse
Exam Limitations: none
Time Seen by Provider: 02/27/25 15:09
History of Present Illness
History of Present Illness:
64 y/o male pt with a PMH of HTN, hypercholesterolemia, and GERD presenting to the ED c/o exertional SOB and chest tightness x 2 days. Pt reports being sick with a cold and fatigued x 1 week, started coughing 2 days ago. States he has tried
everything OTC for cough but got no relief. Pt reports nausea and watery diarrhea x 1 day. Denies any fevers, rhinorrhea, sore throat, chest pain, palpitations, abdominal pain, vomiting, hematochezia. Pt denies any hx of asthma, COPD, CHF.
Past History
<JOSE J Watson - Last Filed: 02/27/25 18:52>
Past History
ED Past Medical History: GERD, HTN and Hypercholesterolemia
Social History
Tobacco: Non-smoker
Personal:
Living: with family
Phy Exam
<JOSE J Watson - Last Filed: 02/27/25 18:52>
General Physical Exam
General Presentation: well appearing and no apparent distress
General age: appears stated age
General Skin: warm
General Habitus: obese
General Mental: alert
General Hydration: appears well hydrated
ENT Exam
ENT Exam: TM's normal, neck supple and normocephalic
Cardiovascular Exam
Cardiovascular Exam: regular rate/rhythm, no edema, no gallop, no murmur and normal peripheral pulses
Pulmonary Exam
Pulmonary Exam: no respiratory distress and generalized wheezing
Cough: hacking cough and non productive cough
Breath Sounds: Wheeze: generalized and Rhonchi: generalized
Gastrointestinal Exam
Gastrointestinal Exam: normal bowel sounds, non tender and non distended
Palpation: generalized: No tenderness
Scores
<JOSE J Watson - Last Filed: 02/27/25 18:52>
Heart Failure Risk
Heart Failure Risk Score: Not Applicable
Course
<JOSE J Watson - Last Filed: 02/27/25 18:52>
Orders/Labs/Results
Orders:
Orders
02/27/25 13:58
EKG [Electrocardiogram (*1)] Urgent
Reason for Study: Shortness of Breath
02/27/25 13:59
EKG- Treatment ONCE
02/27/25 14:18
Complete Blood Count/With Diff Urgent
Comprehensive Metabolic Panel Urgent
Prothrombin Time Urgent
Troponin I Urgent
02/27/25 15:30
IV Insert/Care/Rem.- Treatment PRN
Albuterol Sulfate [Ventolin Nebules] 7.5 mg INH R NOW STA
Dexamethasone Sod Phosphate [Decadron] 10 mg IV NOW STA
Ipratropium/Albuterol Sulfate [Duoneb] 3 ml INH R NOW STA
CR Chest Portable - 1 View Urgent
Comment:
Reason For Exam: sob
Reason Study Needs to be Portable: Patient Unstable
02/27/25 16:21
COVID-19 Antigen Urgent
Source: Nasal Swab
Influenza A+B Rapid Molecular Urgent
CANDY Source: Nasal Swab
Specimen Description:
02/27/25 18:01
Admit/Transfer Patient As Directed
Co-Sign Provider:
Level of Care: Observation services
Assign to:: Medical/Surgical
Physician / Group: hospitalist
Diagnosis: bronchitis
Reason for Hospitalization: bronchitis
02/27/25 18:06
PRN Pain Medication Management As Directed
May give lesser potent ordered pain med per pt: Yes
preference::
Protocol:: Medication orders for pain may be administered in a
manner that supports deferring to patient preference
when the pt is:
- Requesting an ordered lesser potent pain medication.
Least to most potent pain medications are defined
as: acetaminophen < NSAID < tramadol < opioids
(morphine, oxycodone, hydromorphone).
- Requesting a lesser dose of the same medication IF
ORDERED.
- Requesting a less intrusive route of administration
if both routes are prescribed by the provider (PO <
IV).
02/27/25 18:08
Code Status As Directed
Resuscitation Status: Full Code
02/27/25 18:10
C DIFF [C difficile Antigen & Toxins] Routine
CANDY Source: Feces/Stool
Specimen Description:
Benzonatate [Tessalon Perles] 100 mg PO TIDPRN PRN
Ipratropium/Albuterol Sulfate [Duoneb] 3 ml INH R TIDPRN PRN
Vest Therapy [Rx Vest] [RESP] Routine
Quantity: 1
02/27/25 18:12
Pt Eval And Treat Routine
Activity Level: Out of Bed-Early Mobility
02/27/25 20:00
Guaifenesin [Mucinex] 600 mg PO Q12
02/28/25 04:00
Dexamethasone Sod Phosphate [Decadron] 4 mg IV Q12H
Abnormal Lab Results
02/27/25
14:18
WBC 4.7 L 10^3/uL
(4.8-10.8)
RBC 4.01 L 10^6/uL
(4.70-6.10)
Hct 38.4 L %
(39.0-52.0)
MCV 95.8 H fL
(80.0-94.0)
MCH 32.9 H pg
(27.0-31.0)
Abs Immat Gran (auto) 0.1 H 10^3/uL
(0-0.05)
Absolute Lymphs (auto) 1.1 L 10^3/uL
(1.2-3.4)
Immature Gran % 1.3 H %
(0-0.5)
Monocytes % 10.6 H %
(1.7-9.3)
Glucose 131 H mg/dl
(70-99)
02/27/25 14:18
02/27/25 14:18
Vital Signs
Initial and Last Documented VS:
Initial Vital Signs
Temp Pulse Resp BP Pulse Ox
97.8 F 118 22 126/91 98
02/27/25 14:07 02/27/25 14:07 02/27/25 14:07 02/27/25 14:07 02/27/25 14:07
Last Documented Vital Signs
Temp Pulse Resp BP Pulse Ox
98.0 F 102 20 154/80 95
02/27/25 14:08 02/27/25 17:45 02/27/25 17:45 02/27/25 17:00 02/27/25 17:45
<Jan Walker MD - Last Filed: 02/27/25 17:09>
Orders/Labs/Results
Orders:
Orders
02/27/25 13:58
EKG [Electrocardiogram (*1)] Urgent
Reason for Study: Shortness of Breath
02/27/25 13:59
EKG- Treatment ONCE
02/27/25 14:18
Complete Blood Count/With Diff Urgent
Comprehensive Metabolic Panel Urgent
Prothrombin Time Urgent
Troponin I Urgent
02/27/25 15:30
IV Insert/Care/Rem.- Treatment PRN
Albuterol Sulfate [Ventolin Nebules] 7.5 mg INH R NOW STA
Dexamethasone Sod Phosphate [Decadron] 10 mg IV NOW STA
Ipratropium/Albuterol Sulfate [Duoneb] 3 ml INH R NOW STA
CR Chest Portable - 1 View Urgent
Comment:
Reason For Exam: sob
Reason Study Needs to be Portable: Patient Unstable
02/27/25 16:21
COVID-19 Antigen Urgent
Source: Nasal Swab
Influenza A+B Rapid Molecular Urgent
CANDY Source: Nasal Swab
Specimen Description:
02/27/25 18:01
Admit/Transfer Patient As Directed
Co-Sign Provider:
Level of Care: Observation services
Assign to:: Medical/Surgical
Physician / Group: hospitalist
Diagnosis: bronchitis
Reason for Hospitalization: bronchitis
02/27/25 18:06
PRN Pain Medication Management As Directed
May give lesser potent ordered pain med per pt: Yes
preference::
Protocol:: Medication orders for pain may be administered in a
manner that supports deferring to patient preference
when the pt is:
- Requesting an ordered lesser potent pain medication.
Least to most potent pain medications are defined
as: acetaminophen < NSAID < tramadol < opioids
(morphine, oxycodone, hydromorphone).
- Requesting a lesser dose of the same medication IF
ORDERED.
- Requesting a less intrusive route of administration
if both routes are prescribed by the provider (PO <
IV).
02/27/25 18:08
Code Status As Directed
Resuscitation Status: Full Code
02/27/25 18:10
C DIFF [C difficile Antigen & Toxins] Routine
CANDY Source: Feces/Stool
Specimen Description:
Benzonatate [Tessalon Perles] 100 mg PO TIDPRN PRN
Ipratropium/Albuterol Sulfate [Duoneb] 3 ml INH R TIDPRN PRN
Vest Therapy [Rx Vest] [RESP] Routine
Quantity: 1
02/27/25 18:12
Pt Eval And Treat Routine
Activity Level: Out of Bed-Early Mobility
02/27/25 20:00
Guaifenesin [Mucinex] 600 mg PO Q12
02/28/25 04:00
Dexamethasone Sod Phosphate [Decadron] 4 mg IV Q12H
Abnormal Lab Results
02/27/25
14:18
WBC 4.7 L 10^3/uL
(4.8-10.8)
RBC 4.01 L 10^6/uL
(4.70-6.10)
Hct 38.4 L %
(39.0-52.0)
MCV 95.8 H fL
(80.0-94.0)
MCH 32.9 H pg
(27.0-31.0)
Abs Immat Gran (auto) 0.1 H 10^3/uL
(0-0.05)
Absolute Lymphs (auto) 1.1 L 10^3/uL
(1.2-3.4)
Immature Gran % 1.3 H %
(0-0.5)
Monocytes % 10.6 H %
(1.7-9.3)
Glucose 131 H mg/dl
(70-99)
02/27/25 14:18
02/27/25 14:18
Vital Signs
Initial and Last Documented VS:
Initial Vital Signs
Temp Pulse Resp BP Pulse Ox
97.8 F 118 22 126/91 98
02/27/25 14:07 02/27/25 14:07 02/27/25 14:07 02/27/25 14:07 02/27/25 14:07
Last Documented Vital Signs
Temp Pulse Resp BP Pulse Ox
98.0 F 102 20 154/80 95
02/27/25 14:08 02/27/25 17:45 02/27/25 17:45 02/27/25 17:00 02/27/25 17:45
<JOSE J Watson - Last Filed: 02/27/25 18:52>
*Critical Care Note
Total Time (30-74mins, 75-104mins- exclusive of procedures): Not Applicable
<Jan Walker MD - Last Filed: 02/27/25 17:09>
*Radiology
Radiology exam reviewed: preliminary read by ED provider (Questionable infiltrate right base) and radiology read reviewed (Negative)
*Pulse Oximetry
Patient hypoxic: no
<Jan Walker MD - Last Filed: 02/27/25 17:09>
Update Note
Update Note:
Patient still with diffuse expiratory wheezing and rhonchi. Warrants inpatient management
ED Attending Note
<JOSE J Watson - Last Filed: 02/27/25 18:52>
-
Portions of this chart may have been created with voice recognition software.� Occasional wrong word or��sound alike� substitutions may have occurred due to the inherent limitations of voice recognition software.
<Jan Walker MD - Last Filed: 02/27/25 17:09>
ED Attending Note
Patient seen and examined by attending physician: Yes
I performed the substantive portion of visit, reviewed & personally made and approve the management plan that is documented in note by myself or MG.: Yes
ED Attending Note:
64-year-old male complaining of shortness of breath progressive over 2 to 3 days. Started with a cold last week. Some cough. No hemoptysis. No pleuritic chest pain. Shortness of breath is moderate in nature.
GENERAL: Alert and oriented in no apparent distress
EYE: Orbits normal.
NECK: Supple, no significant adenopathy.
ENT: Pharynx without erythema
CARDIAC: Regular rate and rhythm without any obvious murmurs.
LUNGS: Diffuse expiratory wheezing. Mild tachypnea.
ABDOMEN: Soft, without focal tenderness or distention
NEUROLOGICAL: Alert and oriented , grossly non-focal
SKIN: Warm and dry, no rash or lesion, no discoloration, skin intact.
MUSCULOSKELETAL: No edema,no deformity.Good color
PSYCH: Normal and appropriate interaction.
Previous orthopedic surgery. Non-smoker.
Previous records and labs reviewed. Medical decision making
Diffuse expiratory wheezing. Most consistent with a reactive airway bronchitis or pneumonia. Highly doubt pulmonary emboli. Doubt primary cardiac issue. Low suspicion for CHF. Workup in progress. Nebulizer steroids. Chest x-ray suspicious for
pneumonia. Will reevaluate for decision for inpatient versus outpatient management
Discharge Plan
Departure
Patient Disposition: Admit
Date of Disposition: 02/27/25
Time of Disposition: 17:09
Presentation/result/management discussed w/ accepting MD/DO: Hospitalist
Discharge Problem:
Respiratory distress, Asthmatic bronchitis
Interventions
Interventions:
*Risk Screen - Suicide Last Done: 02/27/25 14:11
*General Assessment Last Done: 02/27/25 14:11
*Neglect/Abuse Screening Last Done: 02/27/25 14:11
*ED- Fall Risk Assessment Last Done: 02/27/25 15:09
*ED COVID-19 Vaccine History Last Done: 02/27/25 14:11
ED- Cardiac Assessment Last Done: 02/27/25 15:09
ED- Pulmonary Assessment Last Done: 02/27/25 15:09
[2025-02-27] MEDS: VENTOLIN NEBULES 7.5 MG INH (16:23)
[2025-02-27] MEDS: DUONEB 3 ML INH (16:23)
[2025-02-27] MEDS: DECADRON 10 MG IV (16:23)
[2025-02-27 16:54] LABS: COVID-19 Antigen Negative (Negative)
--- NOTE | 2025-02-27 18:12 | HPS.HSE ---
Addendum entered and electronically signed by Jada Magallanes MD 02/28/25 07:47:
I personally performed a history and physical exam of the patient and discussed management with the resident. I reviewed the resident's note and agree with the documented findings and plan of care HPI/CC.
Original Note:
Family Physician
-
Family Physician: Jan Larkin
Chief Complaint
-
Cough/wheeze/shortness of breath
History of Present Illness
64-year-old male with past history of hypertension, gout, MGUS presented with cough, wheeze, shortness of breath. Patient states that he has been having chest cold (nasal congestion and drainage) for the past 1 week with worsening of dry cough he
also reports of increased cough with laying down at night for the past 3 days. He has noticed dyspnea on exertion for past 1 week. He reports of >1 episode of watery diarrhea . He admits to being around his grandchildren who have been sick
lately. He denies unusual weight gain, chest pain, palpitations. Denies childhood asthma. He is a non-smoker and does not drink alcohol.
In the ED chest x-ray is unremarkable, COVID and flu are negative, patient is afebrile without leukocytosis.
Medical History
Past Medical History
Past Medical History: Reports HTN, Hypercholesterolemia and Other (MGUS(sees nephrology and oncology))
Past Surgical History: Reports None
Social History
Tobacco: Non-smoker
Alcohol: None
Drug: None
Personal:
Living: With Family
Employment: Retired
Family History
Family History: Not pertinent
Allergies / Home Medications
Allergies reflects when Allergies were last updated in [employer].
Home Medications with original date entered in [facility]
Allergy/Medication List:
Allergies
Allergy/AdvReac Type Severity Reaction Status Date / Time
bee venom protein (honey bee) Allergy Intermediate Swelling Verified 01/10/25 11:12
Home Medications
allopurinol 300 mg tablet 300 mg PO DAILY Gout 07/24/13
amlodipine 5 mg-olmesartan 20 mg tablet 0.5 tab PO QPM Blood Pressure 01/10/25
cholecalciferol (vitamin D3) 25 mcg (1,000 unit) tablet (Vitamin D3) 25 mcg PO DAILY Supplement 01/10/25
escitalopram oxalate 5 mg tablet (Lexapro) 10 mg PO QPM depression/anxiety 01/10/25
ezetimibe 10 mg tablet (Zetia) 10 mg PO DAILY High Cholesterol 01/10/25
ibuprofen 200 mg tablet (Advil) 400 mg PO Q6HPRN PRN mild pain 01/10/25
omeprazole 20 mg capsule,delayed release 20 mg PO BID Gastrointestinal Issue 01/10/25
therapeutic multivitamin 1 tab PO DAILY Supplement 01/10/25
psyllium seed (sugar) oral powder 1 tbsp PO BID 02/27/25
rosuvastatin 40 mg tablet 40 mg PO DAILY 02/27/25
Review of Systems
-
History Source: Patient
A 12 point ROS was completed and negative except as noted: Yes
Respiratory: Reports Cough, Trouble Breathing and Other (Wheeze)
Physical Exam
Vital Signs
Vital Signs
Temp Pulse Resp BP Pulse Ox
98.0 F 102 20 154/80 95
02/27/25 14:08 02/27/25 17:45 02/27/25 17:45 02/27/25 17:00 02/27/25 17:45
Physical Exam
General: No Apparent Distress
HEENT: NormoCephalic, Anicteric and Moist mucous membranes
Respiratory: Wheezes (Expiratory b/l)
Cardiac: S1/S2, Regular Rhythm and Tachycardia
GI: Soft, Non Tender and Non Distended
Musculoskeletal: No Edema
Skin: Warm and Dry
Neuro: AO x 3
Psych: Calm
Laboratory Results
-
02/27/25 14:18
02/27/25 14:18
Laboratory Results
PT 12.2 Sec (11.4-14.6) 02/27/25 14:18
INR 0.87 02/27/25 14:18
Total Bilirubin 1.1 mg/dl (0.2-1.3) 02/27/25 14:18
AST 46 U/L (17-59) 02/27/25 14:18
ALT 46 U/L (0-50) 02/27/25 14:18
Alkaline Phosphatase 83 U/L (38-126) 02/27/25 14:18
Troponin I < 0.012 ng/ml 02/27/25 14:18
Data Reviewed
-
Diagnostic Radiology: Image Personally Visualized and interpreted, Report Reviewed by me and Discussed with Physician
Lab Data: Labs Reviewed by me and Discussed with Physician
Impression/Plan
-
IMPRESSION:
Cough
Dyspnea on exertion
Diarrhea
Essential hypertension
History of gout
Hyperlipidemia
Anxiety/depression
History of MGUS
PLAN:
Cough
Likely secondary to viral bronchitis
Expiratory wheezes on auscultation
Chest x-ray unremarkable
COVID and flu negative
Check RSV
Decadron 4 mg IV Q12
DuoNeb for wheezes, vest therapy
Tessalon Perle add Mucinex to help with secretions and cough
Dyspnea on exertion
Currently on room air
Continue DuoNeb and Decadron
PT eval
Diarrhea
Check C. difficile
Essential hypertension
Continue amlodipine-olmesartan
History of gout
Continue allopurinol
Hyperlipidemia
Continue rosuvastatin
Anxiety/depression
continue Lexapro
#History of MGUS
Full code
Lovenox
Regular diet
[2025-02-27] MEDS: MUCINEX 600 MG PO (19:10)
[2025-02-27] MEDS: MOTRIN 400 MG PO (22:51)
--- NOTE | 2025-02-27 23:37 | PTCARENOTE ---
Patient arrived from ED, on RA. AAO x 4. Patient complaining of SOB despite WNL pulse ox reading. 2 L supplemental oxygen placed, by this RN. On auscultation, lungs with stridor, expiratory wheezing and rhonchi--sounds as though patient is not
adequately passing air--respiratory notified. Patient with infrequent, nonproductive cough. Mucinex and Tessalon pearles ordered. VSS. Patient complaining of frontal head pain--PRN Motrin administered for pain management. 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 Bed alarm on. OOB ad radha. Urinal provided for voids. Patient oriented to room. Patient needs met. Call cuello and personal belongings within reach.
[2025-02-28] MEDS: DECADRON 4 MG IV (04:02)
[2025-02-28 07:18] LABS: % Basophils 0.2 % (0-2); % Immature Granulocytes 1.1 % (0-0.5); % Lymphocytes 11.1 % (20.5-51.1); % Monocytes 2.3 % (1.7-9.3); % Neutrophils 85.3 % (42.2-75.2); Absolute Immature Granulocytes 0.1 10^3/uL (0-0.05); Absolute Lymphocytes 0.5 10^3/uL (1.2-3.4); Absolute Monocytes 0.1 10^3/uL (0.1-0.6); Absolute Neutrophils 3.8 10^3/uL (1.4-6.5); Hematocrit 34.6 % (39.0-52.0); Hemoglobin 11.9 g/dL (13.0-18.0); Mean Corp Hgb Conc. 34.4 g/dL (33.0-37.0); Mean Corpuscular Hgb 33.1 pg (27.0-31.0); Mean Corpuscular Volume 96.1 fL (80.0-94.0); Mean Platelet Volume 10.2 fL (7.4-10.4); Nucleated Red Blood Cells % 0 % (-); Platelet Count 135 10^3/uL (130-400); Red Cell Dist. Width 13.2 % (11.5-14.5); White Blood Cell Count 4.4 10^3/uL (4.8-10.8)
[2025-02-28 07:35] VITALS: BP 138/82
[2025-02-28 07:40] LABS: Blood Urea Nitrogen 19 mg/dl (9-20); Calcium 9.8 mg/dl (8.4-10.2); Carbon Dioxide 26 mmol/L (22-30); Chloride 103 mmol/L (98-107); Estimated Creatinine Clearance 99 ml/min; Glucose 150 mg/dl (70-99); Potassium 5.3 mmol/L (3.5-5.1); Sodium 139 mmol/L (135-145); eGFR > 60.00
[2025-02-28] MEDS: PROTONIX 40 MG PO ×2 (08:44→20:34)
[2025-02-28] MEDS: MUCINEX 600 MG PO ×2 (08:44→20:34)
[2025-02-28] MEDS: METAMUCIL, KONSYL 1 PACKET PO ×2 (08:44→20:35)
[2025-02-28] MEDS: VITAMIN D3 (cholecalciferol) 25 MCG PO (08:44)
[2025-02-28] MEDS: THERAGRAN 1 TABLET PO (08:44)
[2025-02-28] MEDS: ZYLOPRIM 300 MG PO (08:44)
[2025-02-28] MEDS: CRESTOR 40 MG PO (08:44)
--- NOTE | 2025-02-28 10:00 | W.PN.HOSP.TC ---
Today's Communication/Plan
-
see A/P
Assessment / Plan
Assessment / Plan
HPI: 64-year-old male with past history of hypertension, gout, MGUS presented with cough, wheezing, shortness of breath. Patient states that he has been having nasal congestion and drainage for the past 1 week with worsening of dry cough. He also
reports of increased cough with laying down at night for the past 3 days. He has noticed dyspnea on exertion for past 1 week. He reports of >1 episode of watery diarrhea.
He admits to being around his grandchildren who have been sick lately. He denies unusual weight gain, chest pain, palpitations. Denies childhood asthma. He is a non-smoker and does not drink alcohol.
In the ED chest x-ray is unremarkable, COVID and flu are negative, patient is afebrile without leukocytosis.
A/P:
# respiratory symptoms suspect viral URI / viral bronchitis
without hypoxia
COVID/Flu and RSV negative
Chest x-ray unremarkable
Cont symptomatic control, Duoneb ATC and PRN, Mucinex, Tessalon
Cont IV Decadron for wheezing, increase to 6 mg IV BID
Vest therapy
# Watery diarrhea likely due to viral URI
pending C diff, also check Norovirus
# Essential hypertension
Cont home amlodipine-olmesartan
# History of gout
Continue allopurinol
# Hyperlipidemia
Continue rosuvastatin
# Anxiety/depression
continue Lexapro
# History of MGUS
Full code
Lovenox
Regular diet
DW RN
Anticipated Discharge: 24 - 48 hours
Subjective/Interval History
-
Date of Service: February 28, 2025
Objective Data
-
Labs:
Laboratory Results
02/28/25
06:48
WBC 4.4 L
Hgb 11.9 L
Hct 34.6 L
Plt Count 135
Sodium 139
Potassium 5.3 H
Chloride 103
Carbon Dioxide 26
BUN 19
Creatinine 0.9
Glucose 150 H
Calcium 9.8
Vital Signs:
Vital Signs
Temp Pulse Resp BP Pulse Ox
36.6 C 79 16 138/82 94
02/28/25 07:35 02/28/25 07:35 02/28/25 07:35 02/28/25 07:35 02/28/25 07:35
I&O
02/27/25 02/28/25 03/01/25
06:59 06:59 06:59
Intake Total 360 / 360
Balance 360 / 360
Review of Systems
-
History Source: Patient
Respiratory: Reports Cough and Other (congestion)
Physical Exam
-
General: Well Developed, Well Nourished, No Apparent Distress, Comfortable, Conversant and Obese
HEENT: Normocephalic, Atraumatic and Moist Mucous Membranes
Respiratory: Wheezes and Non Labored Respirations; Negative Accessory Resp Muscle Use
Cardiac: Regular Rhythm and S1/S2
Breast: Deferred by me
GI: Soft, Nontender, Nondistended and Normal Bowel Sounds
Rectal: Deferred by Provider
Genito-urinary: Deferred by me
Musculoskeletal: No Clubbing, No Cyanosis and No Edema
Skin: Warm and Dry
Neuro: Awake, Alert, Oriented and AO x 3
Psych: Calm and Intact Judgement/Insight
Data Reviewed
-
Diagnostic Radiology: Report Reviewed by me
Labs: Labs Reviewed by me
[2025-02-28] MEDS: TESSALON PERLES 100 MG PO ×2 (10:13→18:47)
[2025-02-28] MEDS: DUONEB 3 ML INH ×3 (11:16→19:33)
[2025-02-28 11:39] LABS: Procalcitonin < 0.05 ng/ml (0.0-0.25)
[2025-02-28 15:05] VITALS: BP 137/81
[2025-02-28 16:28] VITALS: BP 139/92; PULSE 105; O2SAT 96
[2025-02-28] MEDS: BENICAR 10 MG PO (16:39)
[2025-02-28] MEDS: LEXAPRO 10 MG PO (16:39)
[2025-02-28] MEDS: DECADRON 6 MG IV (16:40)
[2025-02-28] MEDS: NORVASC 2.5 MG PO (16:40)
[2025-02-28] MEDS: LOVENOX 40 MG SC (16:40)
[2025-02-28 17:15] VITALS: BP 137/81
[2025-02-28 18:42] VITALS: BP 147/71
[2025-02-28] MEDS: MOTRIN 400 MG PO (21:57)
[2025-02-28 23:30] VITALS: BP 134/66
[2025-03-01] MEDS: DECADRON 6 MG IV ×2 (03:55→16:57)
[2025-03-01 06:08] LABS: Blood Urea Nitrogen 24 mg/dl (9-20); Calcium 9.4 mg/dl (8.4-10.2); Carbon Dioxide 24 mmol/L (22-30); Chloride 103 mmol/L (98-107); Estimated Creatinine Clearance 99 ml/min; Glucose 150 mg/dl (70-99); Potassium 4.7 mmol/L (3.5-5.1); Sodium 134 mmol/L (135-145); eGFR > 60.00
[2025-03-01 07:05] VITALS: BP 135/66
[2025-03-01 07:17] LABS: Hematocrit 33.7 % (39.0-52.0); Mean Corp Hgb Conc. 35.6 g/dL (33.0-37.0); Mean Corpuscular Hgb 33.6 pg (27.0-31.0); Mean Corpuscular Volume 94.4 fL (80.0-94.0); Platelet Count 165 10^3/uL (130-400); Red Blood Cell Count 3.57 10^6/uL (4.70-6.10); Red Cell Dist. Width 13.4 % (11.5-14.5); White Blood Cell Count 10.2 10^3/uL (4.8-10.8)
--- NOTE | 2025-03-01 07:45 | W.PN.HOSP.TC ---
Today's Communication/Plan
-
see A/P
Assessment / Plan
Assessment / Plan
HPI: 64-year-old male with past history of hypertension, gout, MGUS presented with cough, wheezing, shortness of breath. Patient states that he has been having nasal congestion and drainage for the past 1 week with worsening of dry cough. He also
reports of increased cough with laying down at night for the past 3 days. He has noticed dyspnea on exertion for past 1 week. He reports of >1 episode of watery diarrhea.
He admits to being around his grandchildren who have been sick lately. He denies unusual weight gain, chest pain, palpitations. Denies childhood asthma. He is a non-smoker and does not drink alcohol.
In the ED chest x-ray is unremarkable, COVID and flu are negative, patient is afebrile without leukocytosis.
A/P:
# respiratory symptoms suspect viral URI / viral bronchitis
Clinically without hypoxia
COVID/Flu and RSV negative
Chest x-ray unremarkable
Procal negative
Cont symptomatic control, Duoneb ATC and PRN, Mucinex, Tessalon
Cont IV Decadron for wheezing, increased to 6 mg IV BID
Pt noticed mild hyperglycemia which is likely due to steroid effect, offered sliding scale coverage which he agreed to
Cont vest therapy
# Watery diarrhea likely due to viral URI
C diff/ Norovirus negative
# Essential hypertension
Cont home amlodipine-olmesartan
# History of gout
Continue allopurinol
# Hyperlipidemia
Continue rosuvastatin
# Anxiety/depression
continue Lexapro
# History of MGUS
Full code
Lovenox
Dispo: PT recc
Anticipated Discharge: Within 24 hours
Subjective/Interval History
-
Date of Service: March 01, 2025
Objective Data
-
Labs:
Laboratory Results
03/01/25 03/01/25
05:24 07:03
WBC Cancelled 10.2
Hgb Cancelled 12.0 L
Hct Cancelled 33.7 L
Plt Count Cancelled 165 D
Sodium 134 L
Potassium 4.7
Chloride 103
Carbon Dioxide 24
BUN 24 H
Creatinine 0.9
Glucose 150 H
Calcium 9.4
Vital Signs:
Vital Signs
Temp Pulse Resp BP Pulse Ox
36.7 C 92 16 134/66 93
02/28/25 23:30 02/28/25 23:30 02/28/25 23:30 02/28/25 23:30 02/28/25 23:30
I&O
02/28/25 03/01/25 03/02/25
06:59 06:59 06:59
Intake Total 360 / 360 340 / 340
Balance 360 / 360 340 / 340
Review of Systems
-
History Source: Patient
Respiratory: Reports Cough (improving ) and Other (congestion improving )
Physical Exam
-
General: Well Developed, Well Nourished, No Apparent Distress, Comfortable, Conversant and Obese
HEENT: Normocephalic, Atraumatic and Moist Mucous Membranes
Respiratory: Wheezes (improved ) and Non Labored Respirations; Negative Accessory Resp Muscle Use
Cardiac: Regular Rhythm and S1/S2
Breast: Deferred by me
GI: Soft, Nontender, Nondistended and Normal Bowel Sounds
Rectal: Deferred by Provider
Genito-urinary: Deferred by me
Musculoskeletal: No Clubbing, No Cyanosis and No Edema
Skin: Warm and Dry
Neuro: Awake, Alert, Oriented and AO x 3
Psych: Calm and Intact Judgement/Insight
Data Reviewed
-
Diagnostic Radiology: Report Reviewed by me
Labs: Labs Reviewed by me
[2025-03-01] MEDS: DUONEB 3 ML INH ×4 (08:04→19:35)
[2025-03-01] MEDS: MUCINEX 600 MG PO ×2 (08:47→19:45)
[2025-03-01] MEDS: THERAGRAN 1 TABLET PO (08:47)
[2025-03-01] MEDS: TESSALON PERLES 100 MG PO ×2 (08:47→19:47)
[2025-03-01] MEDS: VITAMIN D3 (cholecalciferol) 25 MCG PO (08:47)
[2025-03-01] MEDS: PROTONIX 40 MG PO ×2 (08:47→19:45)
[2025-03-01] MEDS: CRESTOR 40 MG PO (08:47)
[2025-03-01] MEDS: ZYLOPRIM 300 MG PO (08:47)
[2025-03-01] MEDS: METAMUCIL, KONSYL 1 PACKET PO ×2 (08:48→19:45)
[2025-03-01 12:18] LABS: Glucose - Point of Care 171 mg/dl (70-99)
[2025-03-01] MEDS: MOTRIN 400 MG PO ×2 (12:39→21:14)
[2025-03-01] MEDS: NOVOLOG FLEXPEN-LOW RESISTANCE 1 UNITS SC (13:22)
--- NOTE | 2025-03-01 13:28 | CM ---
Met with patient at bedside
Outpatient/observation form explained; form signed @ 1325
Pharmacy verified: [facility] @ [address] [place] [address]
Patient and live in a multilevel home; 2 steps to enter; 12-13 steps between floors; powder room 1st floor w/ raised toilet; 2nd floor full bath has tub w/shower
PLOF: independent with ADLs and ambulation; drives; retired
DME: [employer] available if needed
No SNF utilization history; home PT 10 yrs ago if joint replacement
will transport home
Explained that PT recommends home PT; patient agreeable; aware of agency options; preference is [facility]; referral sent via [facility]
Plan: discharge to home with home health services
[2025-03-01 15:10] VITALS: BP 126/67
[2025-03-01 16:54] LABS: Glucose - Point of Care 131 mg/dl (70-99)
[2025-03-01] MEDS: NOVOLOG FLEXPEN-LOW RESISTANCE SC (16:57)
[2025-03-01] MEDS: BENICAR 10 MG PO (16:59)
[2025-03-01] MEDS: LOVENOX 40 MG SC (16:59)
[2025-03-01] MEDS: LEXAPRO 10 MG PO (16:59)
[2025-03-01] MEDS: NORVASC 2.5 MG PO (16:59)
[2025-03-01 23:30] VITALS: BP 121/59
[2025-03-02 04:38] LABS: Glucose - Point of Care 130 mg/dl (70-99)
[2025-03-02] MEDS: DECADRON 6 MG IV ×2 (04:45→16:02)
[2025-03-02] MEDS: ROBITUSSIN AC 10 ML PO ×2 (04:45→17:37)
[2025-03-02 07:40] VITALS: BP 136/80
[2025-03-02 07:58] LABS: Glucose - Point of Care 132 mg/dl (70-99)
[2025-03-02 08:00] LABS: Hematocrit 32.4 % (39.0-52.0); Hemoglobin 11.4 g/dL (13.0-18.0); Mean Corp Hgb Conc. 35.2 g/dL (33.0-37.0); Mean Corpuscular Hgb 33.3 pg (27.0-31.0); Mean Corpuscular Volume 94.7 fL (80.0-94.0); Mean Platelet Volume 10.2 fL (7.4-10.4); Platelet Count 176 10^3/uL (130-400); Red Blood Cell Count 3.42 10^6/uL (4.70-6.10); Red Cell Dist. Width 13.8 % (11.5-14.5); White Blood Cell Count 9.9 10^3/uL (4.8-10.8)
[2025-03-02] MEDS: DUONEB 3 ML INH ×4 (08:00→20:10)
[2025-03-02] MEDS: NOVOLOG FLEXPEN-LOW RESISTANCE SC ×2 (08:31→16:50)
[2025-03-02] MEDS: ZYLOPRIM 300 MG PO (08:32)
[2025-03-02] MEDS: PROTONIX 40 MG PO ×2 (08:32→19:54)
[2025-03-02] MEDS: MUCINEX 600 MG PO (08:32)
[2025-03-02] MEDS: VITAMIN D3 (cholecalciferol) 25 MCG PO (08:32)
[2025-03-02] MEDS: CRESTOR 40 MG PO (08:32)
[2025-03-02] MEDS: THERAGRAN 1 TABLET PO (08:32)
[2025-03-02] MEDS: METAMUCIL, KONSYL 1 PACKET PO ×2 (08:35→19:54)
[2025-03-02 08:45] LABS: Blood Urea Nitrogen 28 mg/dl (9-20); Calcium 9.5 mg/dl (8.4-10.2); Carbon Dioxide 26 mmol/L (22-30); Chloride 102 mmol/L (98-107); Estimated Creatinine Clearance 81 ml/min; Glucose 129 mg/dl (70-99); Potassium 5.1 mmol/L (3.5-5.1); Sodium 135 mmol/L (135-145); eGFR > 60.00
[2025-03-02 09:02] VITALS: BP 143/70; PULSE 83; O2SAT 97
[2025-03-02 09:37] LABS: Glycohemoglobin (HgbA1c) 5.5 % (4.0-5.6)
[2025-03-02 11:10] LABS: Glucose - Point of Care 241 mg/dl (70-99)
[2025-03-02] MEDS: ROBITUSSIN AC 5 ML PO ×3 (11:38→19:54)
[2025-03-02] MEDS: NOVOLOG FLEXPEN-LOW RESISTANCE 2 UNITS SC (11:38)
--- NOTE | 2025-03-02 11:47 | VNURNOTE ---
Home Health Liaison met with patient and spouse at bedside to discuss [facility] nurse/therapy, visits, schedule and homebound status. Both are agreeable and understand that visits at home will be 2-3 x per week to assess and teach medical management.
[facility] brochure provided with contact information. Patient is aware that [facility] will contact them for start of care in 1-2 days after discharge from . [facility] referral accepted in [facility].
[2025-03-02] MEDS: MOTRIN 400 MG PO ×2 (13:21→19:53)
[2025-03-02] MEDS: PULMICORT INH (14:23)
--- NOTE | 2025-03-02 14:23 | W.PN.HOSP.TC ---
Addendum entered and electronically signed by Padmini Tracy MD 03/02/25 18:40:
I saw and evaluated the patient independently. I reviewed the resident�s note and agree with findings and plan as documented by Dr. Sam.
GENERAL: well developed, well nourished, male in no apparent distress
HEENT: NC/AT
HEART: regular rate and rhythm, +S1, +S2
LUNGS : cough, wheezing diffusely
ABDOM: soft, nontender, nondistended, + bowel sounds
EXT: no cyanosis, clubbing, or edema
NEUROLOGIC: grossly intact
viral bronchitis/URI viral --CXR without PNA--covid/flu neg--still wheezing/cough--had to increase decadron--adding pulmicort and robitussin with codeine--COVI/FLU neg--Cont symptomatic control, Duoneb ATC and PRN, Mucinex, Tessalon,
Robitussin--cont vest therapy--repeat CXR--consider pulm eval if no improvement
mild hyperglycemia which is likely due to steroid effect--sliding scale coverage
Diarrhea--likely viral in nature--Negative for C. difficile
Essential hypertension--Continue amlodipine-olmesartan
History of gout--Continue allopurinol
Hyperlipidemia--Continue rosuvastatin
Anxiety/depression--continue Lexapro
History of MGUS
code status--Full code
DVT proph --Lovenox
Original Note:
Today's Communication/Plan
-
Repeat chest x-ray
Symptomatic management - add Pulmicort and Robitussin
Continue Mucinex, Tessalon Aleisha
Continue Decadron 6 mg IV every 12, DuoNeb
Vest therapy
Assessment / Plan
Assessment / Plan
IMPRESSION:
Cough
Dyspnea on exertion
Diarrhea
Essential hypertension
History of gout
Hyperlipidemia
Anxiety/depression
History of MGUS
PLAN:
Respiratory symptoms likely secondary to viral bronchitis/ URI viral
Chest x-ray unremarkable on admission
COVID/Flu and RSV negative
Chest x-ray unremarkable
Procal negative
Cont symptomatic control, Duoneb ATC and PRN, Mucinex, Tessalon, Robitussin
Add Pulmicort
Cont IV Decadron for wheezing, increased to 6 mg IV BID
Pt noticed mild hyperglycemia which is likely due to steroid effect, offered sliding scale coverage which he agreed to
Cont vest therapy
Repeat chest x-ray
Dyspnea on exertion
Currently on room air
Continue DuoNeb and Decadron
PT eval
Diarrhea
Negative for C. difficile
Essential hypertension
Continue amlodipine-olmesartan
History of gout
Continue allopurinol
Hyperlipidemia
Continue rosuvastatin
Anxiety/depression
continue Lexapro
#History of MGUS
Full code
Lovenox
Regular diet
Anticipated Discharge: 24 - 48 hours
Subjective/Interval History
-
Date of Service: March 02, 2025
Persistent cough overnight
Objective Data
-
Labs:
Laboratory Results
03/02/25
07:47
WBC 9.9
Hgb 11.4 L
Hct 32.4 L
Plt Count 176
Sodium 135
Potassium 5.1
Chloride 102
Carbon Dioxide 26
BUN 28 H
Creatinine 1.1
Glucose 129 H
Calcium 9.5
Vital Signs:
Vital Signs
Temp Pulse Resp BP Pulse Ox
97.5 F 100 16 136/80 96
03/02/25 07:40 03/02/25 11:25 03/02/25 11:25 03/02/25 07:40 03/02/25 11:25
I&O
03/01/25 03/02/25 03/03/25
06:59 06:59 06:59
Intake Total 340 / 340 240 / 240
Balance 340 / 340 240 / 240
Review of Systems
-
All other systems: Reviewed and negative (Except mentioned)
Respiratory: Reports Cough
Physical Exam
-
General: No Apparent Distress and Comfortable
HEENT: Normocephalic and Atraumatic
Respiratory: Clear to Auscultation, Wheezes (Mild) and Non Labored Respirations
Cardiac: Regular Rhythm and S1/S2; Negative Murmur or Rub
GI: Soft, Nontender and Nondistended
Musculoskeletal: No Edema
Skin: Warm and Dry
Neuro: AO x 3
Psych: Calm
Data Reviewed
-
Diagnostic Radiology: Image personally visualized and interpreted, Report Reviewed by me and Discussed with Physician
Labs: Labs Reviewed by me and Discussed with Physician
[2025-03-02 15:09] VITALS: BP 101/66
[2025-03-02 15:45] LABS: Glucose - Point of Care 124 mg/dl (70-99)
--- NOTE | 2025-03-02 16:03 | CM ---
Patient seen at bedside with physicians. Patient now changed to INP status and IMM provided to patient. Patient plan is home with [facility], watch for DME needs; nebulizer. CM will continue to follow for discharge planning needs.
Plan;home with [facility] and possible nebulizer
[2025-03-02] MEDS: BENICAR 10 MG PO (17:23)
[2025-03-02] MEDS: LEXAPRO 10 MG PO (17:23)
[2025-03-02] MEDS: NORVASC 2.5 MG PO (17:23)
[2025-03-02] MEDS: LOVENOX 40 MG SC (17:24)
[2025-03-02] MEDS: PULMICORT 0.25 MG INH (20:10)
[2025-03-02 20:45] LABS: Glucose - Point of Care 176 mg/dl (70-99)
[2025-03-02] MEDS: MELATONIN 5 MG PO (21:10)
[2025-03-02 23:19] VITALS: BP 138/71
[2025-03-03] MEDS: DECADRON 6 MG IV ×2 (04:02→16:13)
[2025-03-03] MEDS: ROBITUSSIN AC 10 ML PO ×3 (04:05→19:46)
[2025-03-03] MEDS: PULMICORT 0.25 MG INH (07:24)
[2025-03-03] MEDS: DUONEB 3 ML INH ×3 (07:24→15:30)
[2025-03-03 07:32] VITALS: BP 131/78
[2025-03-03 07:41] LABS: Glucose - Point of Care 128 mg/dl (70-99)
[2025-03-03] MEDS: ROBITUSSIN AC 5 ML PO ×2 (08:33→16:26)
[2025-03-03] MEDS: MOTRIN 400 MG PO (08:38)
[2025-03-03] MEDS: NOVOLOG FLEXPEN-LOW RESISTANCE SC (09:18)
[2025-03-03] MEDS: CRESTOR 40 MG PO (09:18)
[2025-03-03] MEDS: VITAMIN D3 (cholecalciferol) 25 MCG PO (09:18)
[2025-03-03] MEDS: PROTONIX 40 MG PO ×2 (09:19→19:46)
[2025-03-03] MEDS: ZYLOPRIM 300 MG PO (09:19)
[2025-03-03] MEDS: METAMUCIL, KONSYL 1 PACKET PO ×2 (09:21→19:46)
[2025-03-03] MEDS: THERAGRAN 1 TABLET PO (09:21)
[2025-03-03 10:34] LABS: Hematocrit 32.8 % (39.0-52.0); Hemoglobin 11.3 g/dL (13.0-18.0); Mean Corp Hgb Conc. 34.5 g/dL (33.0-37.0); Mean Corpuscular Volume 95.9 fL (80.0-94.0); Mean Platelet Volume 10.3 fL (7.4-10.4); Platelet Count 181 10^3/uL (130-400); Red Blood Cell Count 3.42 10^6/uL (4.70-6.10); Red Cell Dist. Width 13.7 % (11.5-14.5); White Blood Cell Count 9.1 10^3/uL (4.8-10.8)
[2025-03-03 10:42] LABS: Blood Urea Nitrogen 32 mg/dl (9-20); Calcium 9.4 mg/dl (8.4-10.2); Carbon Dioxide 23 mmol/L (22-30); Chloride 101 mmol/L (98-107); Estimated Creatinine Clearance 89 ml/min; Glucose 210 mg/dl (70-99); Potassium 4.7 mmol/L (3.5-5.1); Sodium 133 mmol/L (135-145); eGFR > 60.00
[2025-03-03 11:14] LABS: Glucose - Point of Care 164 mg/dl (70-99)
[2025-03-03] MEDS: NOVOLOG FLEXPEN-LOW RESISTANCE 1 UNITS SC ×2 (12:30→16:12)
--- NOTE | 2025-03-03 13:53 | CON.PUL ---
Addendum entered and electronically signed by Enedelia Guillory DO 03/03/25 16:32:
Spirometry reviewed, normal overall, some small airways disease present
Cough could be postviral vs atelectasis (with recruitment causing cough)
Will change regiment to high dose HFA, stop nebs, and transition IV steroids to PO taper
Needs to do IS, OOB, encouraged ambulation
Change Tessalon Perles to scheduled
May consider CT Chest in AM if not somewhat improved
Original Note:
Consultation
Consultation Request
Date/Time Consultation Requested: 03/03/25
Date/Time Consultation Performed: 03/03/25
Performing Provider: Kahlil
Reason for Consultation: Cough
Medical History
-
History of Present Illness:
Patient is a 64-year-old male with previous history of hypertension, gout, MGUS presenting to ER with cough, wheezing and shortness of breath. He states states he had had a recent chest URI in the past week, sick contacts at home including
grandchildren. He has since then reported dry coughing for the past 3 nights, worsening with associated dyspnea on exertion for the past week. Chest x-ray demonstrating no acute findings. Initial COVID and flu testing are negative. He is
admitted since 02/27/2025 and placed on IV steroids without improvement.
Denies any prior known history of lung disease, he has no history of asthma nor family history. He does admit to significant chemical exposure for the past 30 years. 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
high levels of PFAS. He is not sure if this is contributory. He denies any exposures to asbestos or other chemicals otherwise.
Lifelong non-smoker, he reports occasional cigar use but not continuous. He has never seen pulmonary in the past.
Past Medical History
Past Medical History: Other (see list below)
Social History
Tobacco: Non-smoker
Alcohol: None
Drug: None
Family History
Family History: Reviewed & Not Pertinent
Allergies / Home Medications
Allergies
Allergy/AdvReac Type Severity Reaction Status Date / Time
bee venom protein (honey bee) Allergy Swelling Verified 02/27/25 18:48
Home Medications
�Medication �Instructions �Recorded �Confirmed �Last Taken �Type
allopurinol 300 mg tablet 300 mg PO DAILY Gout 07/24/13 02/27/25 02/27/25 History
amlodipine 5 mg-olmesartan 20 mg 0.5 tab PO QPM Blood Pressure 01/10/25 02/27/25 02/26/25 History
tablet
cholecalciferol (vitamin D3) 25 25 mcg PO DAILY Supplement 01/10/25 02/27/25 02/27/25 History
mcg (1,000 unit) tablet (Vitamin
D3)
escitalopram oxalate 5 mg tablet 10 mg PO QPM depression/anxiety 01/10/25 02/27/25 02/26/25 History
(Lexapro)
ezetimibe 10 mg tablet (Zetia) 10 mg PO DAILY High Cholesterol 01/10/25 02/27/25 02/27/25 History
ibuprofen 200 mg tablet (Advil) 400 mg PO Q6HPRN PRN mild pain 01/10/25 02/27/25 02/27/25 History
omeprazole 20 mg capsule,delayed 20 mg PO BID Gastrointestinal Issue 01/10/25 02/27/25 02/27/25 History
release
therapeutic multivitamin 1 tab PO DAILY Supplement 01/10/25 02/27/25 02/27/25 History
psyllium seed (sugar) oral powder 1 tbsp PO BID Constipation 02/27/25 02/27/25 02/27/25 History
rosuvastatin 40 mg tablet 40 mg PO DAILY High Cholesterol 02/27/25 02/27/25 02/27/25 History
Review of Systems
-
History Source: Patient
All other systems: Negative unless noted
Vitals / Labs / Diagnostic Testing
Vital Signs
Temp Pulse Resp BP Pulse Ox
97.4 F 77 18 131/78 96
03/03/25 07:32 03/03/25 07:32 03/03/25 07:32 03/03/25 07:32 03/03/25 07:32
Lab Data
03/03/25 10:17
03/03/25 10:17
Microbiology
02/28/25 10:19 Feces/Stool - Final
Negative for Norovirus GI and GII.
02/28/25 10:19 Feces/Stool C. difficile GDH Antigen & Toxins - Final
Negative for toxigenic C.difficile
Diagnostic Testing:
Physical Exam
-
HEENT: Normocephalic, Anicteric and Moist Mucous Membranes
Cardiovascular: S1/S2 and Regular Rhythm
Respiratory: Wheeze (slight, poor air movement) and Non-Labored Respirations
GI: Soft, Non Distended and Non Tender
Neurology: Awake, Alert, Oriented and No Motor Deficits
Skin: Warm, Dry and Good Color
General: Comfortable and Other (NAD)
Assessment
-
Patient is a 64-year-old male with previous history of hypertension, gout, MGUS presenting to ER with cough, wheezing and shortness of breath. He states states he had had a recent chest URI in the past week, sick contacts at home including
grandchildren. He has since then reported dry coughing for the past 3 nights, worsening with associated dyspnea on exertion for the past week. Chest x-ray demonstrating no acute findings. Initial COVID and flu testing are negative. He is
admitted since 02/27/2025 and placed on IV steroids without improvement.
Denies any prior known history of lung disease, he has no history of asthma nor family history. He does admit to significant chemical exposure for the past 30 years. 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
high levels of PFAS. He is not sure if this is contributory. He denies any exposures to asbestos or other chemicals otherwise.
Lifelong non-smoker, he reports occasional cigar use but not continuous. He has never seen pulmonary in the past.
Suspect AE asthma exacerbation, could have adult onset
Exposure history noted below
Acute cough, ~1 week
Sick contacts at home, negative viral panel/PCT neg
RAMOS
Hyponatremia, mild
Conditions present [employer]
Essential (primary) hypertension
Mixed hyperlipidemia
Lumbar disc disease
Cervical radiculopathy
Parkinson's disease
MGUS
History of bilateral hip replacements
Gout
Chronic kidney disease, unspecified CKD stage
Obesity BMI 36.6
Plan
Persistent cough complaints in the past week, not occurring before sick contact exposure at home
Occasional cough noted wtih prior URIs but not to this degree
Stable no RA, no SOB noted
Has never been diagnosed wtih lung disease in the past, denies family history
Lifelong nonsmoker, occasional cigar use socially
CXR initially completed, nondiagnostic
Started on IV steroids wtih some minimal improvement in complaints
Negative testing for viral, bacterial PNA panels
PCT negative 02/28
CBC on admission -- Eos 5.9%/300--denies allergic history
Prior history of lung disease is NOT noted however patient reports 30+ year exposure to environmental chemicals at the [facility] in [place]
The closure resulted in contamination including volatile organic compounds (VOCs) in groundwater, PFAS in various media, and metals in soil.
Specifically, PFAS, also known as 'forever chemicals,' were detected in the base's groundwater and drinking water supply in 2010.
These chemicals are believed to have originated from firefighting foam used at the [facility]--reviewed from [place] EPA site
Literature search on these chemical due indicate potential lung disease including cancers/COPD--
He has shared a list of chemical exposures in which he was tested and was positive for high blood PFAS levels compared to the gen population: (1) perfluorooctanoic acid (PFOA)--highest concentration, (2) perfluorooctanesulfonic acid (PFOS), (3)
perfluorohexane sulfonic acid (PFHxS), (4) perfluorononanoic acid (PFNA), (5) perfluorodecanoid acid (PFDeA), (6) perfluoroheptanoic acid (PFHpA), (7) 7-F-Verkdh-perfluorooctane sulfoamido acetic acid (MeFOSAA), (8) perfluoroundecanoic acid (PFUA).
PFAS has been linked to various lung diseases, including a higher risk of lung cancer and COPD. Specifically, PFOA has been shown to reduce cell stiffness in lung adenocarcinoma cells, which can enhance tumor cell migration and potentially increase
the risk of cancer metastasis. Additionally, studies suggest PFOA and PFOS exposure may impair lung function through various mechanisms like methylation modification and oxidative stress.
I am not sure if the above exposure findings are conclusive evidence of causative lung disease
But we will keep this in mind moving forward
Suspect patient has adult onset asthma, we will obtain bedside PFT
If inconclusive, can follow up with CT imaging
Prior CXR obtained indicating no acute findings
Other imaging reviewed--CT AP 01/10/25- clear bases
Placed on IV steroids, but not significantly improving
Pending PFT results, will likely change neb regiment to high dose MDI
Prior ECHO results are reviewed indicating no acute findings
No obvious cardiac cause
Weight loss measures recommended
Obesity likely contributing to respiratory symptoms
Risk factors assessed for underlying sleep disordered breathing also noted, recommend outpatient PSG/sleep evaluation
Will need outpatient pulmonary evaluation in our office for PFTs and 6MWT
Reviewed with patient
We will follow
Diagnostic Data
Chest X-Ray: 03/03/25- 1. Mild amount of bilateral infrahilar ground-glass opacity in the lower lobes. Diagnostic possibilities are (1) mild pneumonia, (2) mild subsegmental atelectasis, or (3) a mild inflammatory pneumonitis.
2. Mildly decreased bilateral lung volumes.
02/27/25- No acute cardiopulmonary process.
CT Scan: AP 01/10/25- Lower Chest: The included lung bases contain some minor subsegmental atelectasis. No pleural effusion.
01/13/25 Echo: LV ejection fraction is 55-60%, by visual assessment. Normal regional wall motion. Normal right ventricular size and function. Mildly thickened mitral valve leaflets. Mild mitral regurgitation.
Trileaflet aortic valve. Aortic valve opens normally. Trace aortic regurgitation. Tricuspid valve opens normally. Mild tricuspid regurgitation. Estimated pulmonary artery pressure of 15-20 mmHg.
No prior study available for comparison.
PFT's:
Reports and relevant images were personally reviewed.
Total time spent on this consultation __77__ minutes which includes review of history, physical exam, medications, laboratory data, personal review of imaging, extensive review of outpatient records, discussion with care team and respiratory therapy.
[2025-03-03] MEDS: ANESTHETIC LOZENGE 1 LOZENGE PO ×2 (14:38→19:47)
[2025-03-03 15:45] VITALS: BP 148/78
--- NOTE | 2025-03-03 15:54 | CM ---
Patient seen at bedside with physicians. Patient for pulmonary consult at this time. Patient plan is to go home with [facility] and supports. Patient may need nebulizer at discharge pending medical treatment plan recommendations.
Plan; home with [facility]; watch for DME needs; nebulizer.
[2025-03-03 16:01] LABS: Glucose - Point of Care 152 mg/dl (70-99)
--- NOTE | 2025-03-03 16:32 | W.PN.HOSP.TC ---
Addendum entered and electronically signed by Padmini Tracy MD 03/03/25 17:46:
I saw and evaluated the patient independently. I reviewed the resident�s note and agree with findings and plan as documented by Dr. Sam.
GENERAL: well developed, well nourished, male in no apparent distress
HEENT: NC/AT
HEART: regular rate and rhythm, +S1, +S2
LUNGS : cough, wheezing diffusely
ABDOM: soft, nontender, nondistended, + bowel sounds
EXT: no cyanosis, clubbing, or edema
NEUROLOGIC: grossly intact
viral bronchitis/URI viral --CXR without PNA--covid/flu neg--still wheezing/cough--had to increase decadron--adding pulmicort and robitussin with codeine--all to no avail---COVID/FLU neg--Cont symptomatic control, Duoneb ATC and PRN, Mucinex,
Tessalon, Robitussin--stop vest therapy, not producing anything--repeat CXR without significant findings--apprec pulm eval
mild hyperglycemia which is likely due to steroid effect--sliding scale coverage
Diarrhea--likely viral in nature--Negative for C. difficile
Essential hypertension--Continue amlodipine-olmesartan
History of gout--Continue allopurinol
Hyperlipidemia--Continue rosuvastatin
Anxiety/depression--continue Lexapro
History of MGUS
code status--Full code
DVT proph --Lovenox
Original Note:
Today's Communication/Plan
-
Appreciate pulmonology
Transition to prednisone taper
Stop nebs
Chest CT in a.m. if no improvement
Assessment / Plan
Assessment / Plan
IMPRESSION:
Cough
Dyspnea on exertion
Diarrhea
Essential hypertension
History of gout
Hyperlipidemia
Anxiety/depression
History of MGUS
PLAN:
Respiratory symptoms likely secondary to viral bronchitis/ URI viral
Worsening of cough and new onset wheeze
Repeat chest x-ray unimpressive
COVID/Flu and RSV negative
Chest x-ray unremarkable
Procal negative
Cont symptomatic control, Mucinex, Tessalon, Robitussin, nebs
Transition to oral prednisone
Stop nebs. Appreciate pulmonology input
Chest CT in a.m if no improvement
Dyspnea on exertion
Currently on room air
Transition to oral prednisone
PT
Diarrhea
Negative for C. difficile
Essential hypertension
Continue amlodipine-olmesartan
History of gout
Continue allopurinol
Hyperlipidemia
Continue rosuvastatin
Anxiety/depression
continue Lexapro
#History of MGUS
Full code
Lovenox
Regular diet
Anticipated Discharge: > 48 hours
Subjective/Interval History
-
Date of Service: March 03, 2025
Persistent cough overnight
Objective Data
-
Labs:
Laboratory Results
03/03/25
10:17
WBC 9.1
Hgb 11.3 L
Hct 32.8 L
Plt Count 181
Sodium 133 L
Potassium 4.7
Chloride 101
Carbon Dioxide 23
BUN 32 H
Creatinine 1.0
Glucose 210 H
Calcium 9.4
Vital Signs:
Vital Signs
Temp Pulse Resp BP Pulse Ox
98.1 F 97 16 148/78 95
03/03/25 15:45 03/03/25 15:45 03/03/25 15:45 03/03/25 15:45 03/03/25 15:45
I&O
03/02/25 03/03/25 03/04/25
06:59 06:59 06:59
Intake Total 240 / 240 1200 / 1200
Balance 240 / 240 1200 / 1200
Review of Systems
-
History Source: Patient
All other systems: Reviewed and negative (Except mentioned)
Respiratory: Reports Cough
Physical Exam
-
General: No Apparent Distress
HEENT: Normocephalic and Atraumatic
Respiratory: Wheezes
Cardiac: Regular Rhythm and S1/S2
GI: Soft, Nontender and Nondistended
Musculoskeletal: No Edema
Neuro: AO x 3
Psych: Calm
Data Reviewed
-
Diagnostic Radiology: Image personally visualized and interpreted, Report Reviewed by me and Discussed with Physician
Labs: Labs Reviewed by me and Discussed with Physician
[2025-03-03] MEDS: NORVASC 2.5 MG PO (17:33)
[2025-03-03] MEDS: LOVENOX 40 MG SC (17:33)
[2025-03-03] MEDS: LEXAPRO 10 MG PO (17:33)
[2025-03-03] MEDS: BENICAR 10 MG PO (17:33)
[2025-03-03] MEDS: ADVAIR HFA 230/21 MCG INHALER 2 PUFF INH (20:24)
[2025-03-03 21:53] LABS: Glucose - Point of Care 176 mg/dl (70-99)
[2025-03-03] MEDS: TESSALON PERLES 100 MG PO (22:01)
[2025-03-03] MEDS: MELATONIN 5 MG PO (22:01)
[2025-03-03 23:55] VITALS: BP 120/62
[2025-03-04] MEDS: ROBITUSSIN AC 5 ML PO ×2 (01:15→07:44)
[2025-03-04] MEDS: ANESTHETIC LOZENGE 1 LOZENGE PO ×3 (03:13→12:00)
[2025-03-04] MEDS: DUONEB 3 ML INH (03:15)
[2025-03-04] MEDS: MOTRIN 400 MG PO ×2 (05:20→11:58)
[2025-03-04] MEDS: ROBITUSSIN AC 10 ML PO ×3 (05:22→22:17)
[2025-03-04 07:06] LABS: Glucose - Point of Care 132 mg/dl (70-99)
[2025-03-04 07:39] VITALS: BP 136/86
[2025-03-04] MEDS: NOVOLOG FLEXPEN-LOW RESISTANCE SC ×3 (07:43→16:40)
[2025-03-04] MEDS: TESSALON PERLES 100 MG PO (07:45)
[2025-03-04] MEDS: ZYLOPRIM 300 MG PO (07:45)
[2025-03-04] MEDS: PROTONIX 40 MG PO ×2 (07:46→20:10)
[2025-03-04] MEDS: DELTASONE 40 MG PO (07:46)
[2025-03-04] MEDS: THERAGRAN 1 TABLET PO (07:46)
[2025-03-04] MEDS: CRESTOR 40 MG PO (07:46)
[2025-03-04] MEDS: METAMUCIL, KONSYL 1 PACKET PO ×2 (07:47→20:09)
[2025-03-04] MEDS: VITAMIN D3 (cholecalciferol) 25 MCG PO (07:47)
[2025-03-04] MEDS: ADVAIR HFA 230/21 MCG INHALER 2 PUFF INH ×2 (08:17→19:37)
--- NOTE | 2025-03-04 09:04 | W.PN.PUL3 ---
Today's Communication / Plan
-
Not better with recent changes in meds, PFT reviewed with patient
CT obtained--reviewed/not showing acute findings
Will adjust dosages of meds today, he is on PPI BID
Transition to PO taper
Encouraged OOB/PT/ambulation
Could use more time on medications to see improvement
Recommend continued w/u as OP for cough complaints
Reviewed plan of care with team
Assessment
-
Patient is a 64-year-old male with previous history of hypertension, gout, MGUS presenting to ER with cough, wheezing and shortness of breath. He states states he had had a recent chest URI in the past week, sick contacts at home including
grandchildren. He has since then reported dry coughing for the past 3 nights, worsening with associated dyspnea on exertion for the past week. Chest x-ray demonstrating no acute findings. Initial COVID and flu testing are negative. He is
admitted since 02/27/2025 and placed on IV steroids without improvement.
Denies any prior known history of lung disease, he has no history of asthma nor family history. He does admit to significant chemical exposure for the past 30 years. 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
high levels of PFAS. He is not sure if this is contributory. He denies any exposures to asbestos or other chemicals otherwise.
Lifelong non-smoker, he reports occasional cigar use but not continuous. He has never seen pulmonary in the past.
Suspect AE asthma exacerbation, could have adult onset
Exposure history noted below
Acute cough, ~1 week
Sick contacts at home, negative viral panel/PCT neg
RAMOS
Hyponatremia, mild
Conditions present [employer]
Essential (primary) hypertension
Mixed hyperlipidemia
Lumbar disc disease
Cervical radiculopathy
Parkinson's disease
MGUS
History of bilateral hip replacements
Gout
Chronic kidney disease, unspecified CKD stage
Obesity BMI 36.6
Plan
Persistent cough complaints in the past week, not occurring before sick contact exposure at home
Occasional cough noted wtih prior URIs but not to this degree
Stable no RA, no SOB noted
Has never been diagnosed wtih lung disease in the past, denies family history
Lifelong nonsmoker, occasional cigar use socially
CXR initially completed, nondiagnostic
Started on IV steroids wtih some minimal improvement in complaints
Negative testing for viral, bacterial PNA panels
PCT negative 02/28
CBC on admission -- Eos 5.9%/300--denies allergic history
Prior history of lung disease is NOT noted however patient reports 30+ year exposure to environmental chemicals at the [facility] in [place]
The closure resulted in contamination including volatile organic compounds (VOCs) in groundwater, PFAS in various media, and metals in soil.
Specifically, PFAS, also known as 'forever chemicals,' were detected in the base's groundwater and drinking water supply in 2010.
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
Literature search on these chemical due indicate potential lung disease including cancers/COPD--
He has shared a list of chemical exposures in which he was tested and was positive for high blood PFAS levels compared to the gen population: (1) perfluorooctanoic acid (PFOA)--highest concentration, (2) perfluorooctanesulfonic acid (PFOS), (3)
perfluorohexane sulfonic acid (PFHxS), (4) perfluorononanoic acid (PFNA), (5) perfluorodecanoid acid (PFDeA), (6) perfluoroheptanoic acid (PFHpA), (7) 2-E-Mphtsx-perfluorooctane sulfoamido acetic acid (MeFOSAA), (8) perfluoroundecanoic acid (PFUA).
PFAS has been linked to various lung diseases, including a higher risk of lung cancer and COPD. Specifically, PFOA has been shown to reduce cell stiffness in lung adenocarcinoma cells, which can enhance tumor cell migration and potentially increase
the risk of cancer metastasis. Additionally, studies suggest PFOA and PFOS exposure may impair lung function through various mechanisms like methylation modification and oxidative stress.
I am not sure if the above exposure findings are conclusive evidence of causative lung disease
But we will keep this in mind moving forward
Suspect patient has adult onset asthma, we will obtain bedside PFT
Spirometry reviewed, normal overall, some small airways disease present
Cough could be postviral vs atelectasis (with recruitment causing cough)
Will change regiment to high dose HFA, stop nebs, and transition IV steroids to PO taper--will increase doses today
Needs to do IS, OOB, encouraged ambulation
Change Tessalon Perles to scheduled
CT chest obtained, not significant in findings, minor small inflammatory process in RLL
Prior CXR obtained indicating no acute findings
Other imaging reviewed--CT AP 01/10/25- clear bases
We discussed OP FU to continue w/u if no other acute findings noted
Placed on IV steroids, but not significantly improving
Transitioned to PO prednisone, may be contributing to insomnia
He does not appear to be responding to traditional asthma treatments thus far but this could take weeks to improve
Prior ECHO results are reviewed indicating no acute findings
No obvious cardiac cause
Check proBNP for completeness
Weight loss measures recommended
Obesity likely contributing to respiratory symptoms
Risk factors assessed for underlying sleep disordered breathing also noted, recommend outpatient PSG/sleep evaluation--I discussed this with him as well
Will need outpatient pulmonary evaluation in our office for PFTs and 6MWT
Reviewed with patient
Can assess for DC planning if symptoms are somewhat improving
Diagnostic Data
Chest X-Ray: 03/03/25- 1. Mild amount of bilateral infrahilar ground-glass opacity in the lower lobes. Diagnostic possibilities are (1) mild pneumonia, (2) mild subsegmental atelectasis, or (3) a mild inflammatory pneumonitis.
2. Mildly decreased bilateral lung volumes.
02/27/25- No acute cardiopulmonary process.
CT Scan: AP 01/10/25- Lower Chest: The included lung bases contain some minor subsegmental atelectasis. No pleural effusion.
01/13/25 Echo: LV ejection fraction is 55-60%, by visual assessment. Normal regional wall motion. Normal right ventricular size and function. Mildly thickened mitral valve leaflets. Mild mitral regurgitation.
Trileaflet aortic valve. Aortic valve opens normally. Trace aortic regurgitation. Tricuspid valve opens normally. Mild tricuspid regurgitation. Estimated pulmonary artery pressure of 15-20 mmHg.
No prior study available for comparison.
PFT's:
Reports and relevant images were personally reviewed.
Total time spent on this consultation __57__ minutes which includes review of history, physical exam, medications, laboratory data, personal review of imaging, extensive review of outpatient records, discussion with care team and respiratory therapy.
Subjective Data
-
Date of Service:
Date of Service: March 04, 2025
Chief Complaint: Pulmonary Follow Up
Subjective:
Does not feel better, feels 'worse'
Coughing at night with supine position, unable to sleep
Sitting in chair, seems comfortable
Objective Data
Data Reviewed
Vital Signs / I&O / Oxygen:
Vital Signs
Temp Pulse Resp BP Pulse Ox
98.3 F 92 18 136/86 94
03/04/25 07:39 03/04/25 08:21 03/04/25 08:21 03/04/25 07:39 03/04/25 08:21
Intake and Output
03/03/25 03/04/25 03/05/25
06:59 06:59 06:59
Intake Total 1200 / 1200 1080 / 1080
Balance 1200 / 1200 1080 / 1080
SaO2 94
Nasal Cannula flow liters per 2
minute
Physical Exam
General: Comfortable and Other (NAD, obese, anxious appearing)
HEENT: Normocephalic, Anicteric and Moist Mucous Membranes
Cardiovascular: S1-S2 and Regular Rhythm
Respiratory: Clear and Non-Labored Respirations
GI: Soft, Non Distended and Non Tender
Neurology: Awake, Alert, Oriented and No Motor Deficits
Skin: Warm, Dry and Good Color
Labs/Micro/Reports
Lab Data
03/03/25 10:17
[2025-03-04 09:18] LABS: Blood Urea Nitrogen 31 mg/dl (9-20); Calcium 9.4 mg/dl (8.4-10.2); Carbon Dioxide 24 mmol/L (22-30); Chloride 102 mmol/L (98-107); Estimated Creatinine Clearance 89 ml/min; Glucose 124 mg/dl (70-99); Potassium 4.8 mmol/L (3.5-5.1); Sodium 136 mmol/L (135-145); eGFR > 60.00
[2025-03-04 10:42] LABS: Glucose - Point of Care 139 mg/dl (70-99)
[2025-03-04 12:31] VITALS: BP 137/82; PULSE 84
[2025-03-04] MEDS: ProAIR HFA INHALER 2 PUFF INH ×3 (12:34→19:37)
--- NOTE | 2025-03-04 14:19 | W.PN.HOSP.TC ---
Addendum entered and electronically signed by Padmini Tracy MD 03/04/25 17:50:
I saw and evaluated the patient independently. I reviewed the resident�s note and agree with findings and plan as documented by Dr. Sam.
GENERAL: well developed, well nourished, male in no apparent distress
HEENT: NC/AT
HEART: regular rate and rhythm, +S1, +S2
LUNGS : cough, wheezing diffusely
ABDOM: soft, nontender, nondistended, + bowel sounds
EXT: no cyanosis, clubbing, or edema
NEUROLOGIC: grossly intact
viral bronchitis/URI viral --CXR without PNA, CT chest without issue--covid/flu neg--now on PO prednisone--added pulmicort and robitussin with codeine--Cont symptomatic control, Duoneb ATC and PRN, Mucinex, Tessalon, Robitussin--stop vest therapy,
not producing anything--apprec pulm eval
mild hyperglycemia which is likely due to steroid effect--sliding scale coverage
Diarrhea--likely viral in nature--Negative for C. difficile
Essential hypertension--Continue amlodipine-olmesartan
History of gout--Continue allopurinol
Hyperlipidemia--Continue rosuvastatin
Anxiety/depression--continue Lexapro
History of MGUS
code status--Full code
DVT proph --Lovenox
likely home tomorrow--outpt sleep apnea evals
Original Note:
Today's Communication/Plan
-
The worsening of the cough is likely because postviral syndrome.
Chest CT unrevealing. The patient might benefit from CPAP for sleep apnea
Patient is medically/clinically stable for discharge
Assessment / Plan
Assessment / Plan
IMPRESSION:
Cough
Dyspnea on exertion
Diarrhea
Essential hypertension
History of gout
Hyperlipidemia
Anxiety/depression
History of MGUS
PLAN:
Respiratory symptoms likely secondary to viral bronchitis/ URI viral
COVID/Flu and RSV negative
Chest x-ray unremarkable
Procal negative
Cont symptomatic control, Mucinex, Tessalon, Robitussin.
Continue oral prednisone
Pulmonology following
The worsening of the cough is likely because postviral syndrome.
Chest CT unrevealing
The patient might benefit from CPAP for sleep apnea
The workup can be done outpatient
Patient is medically/clinically stable for discharge
Dyspnea on exertion
Currently on room air
Oral prednisone
PT
Diarrhea
Negative for C. difficile
Essential hypertension
Continue amlodipine-olmesartan
History of gout
Continue allopurinol
Hyperlipidemia
Continue rosuvastatin
Anxiety/depression
continue Lexapro
#History of MGUS
Full code
Lovenox
Regular diet
Anticipated Discharge: 24 - 48 hours
Subjective/Interval History
-
Date of Service: March 04, 2025
Persistent cough overnight
Objective Data
-
Labs:
Laboratory Results
03/04/25
07:21
Sodium 136
Potassium 4.8
Chloride 102
Carbon Dioxide 24
BUN 31 H
Creatinine 1.0
Glucose 124 H
Calcium 9.4
Vital Signs:
Vital Signs
Temp Pulse Resp BP Pulse Ox
98.3 F 92 18 136/86 94
03/04/25 07:39 03/04/25 08:21 03/04/25 08:21 03/04/25 07:39 03/04/25 08:21
I&O
03/03/25 03/04/25 03/05/25
06:59 06:59 06:59
Intake Total 1200 / 1200 1080 / 1080
Balance 1200 / 1200 1080 / 1080
Review of Systems
-
All other systems: Reviewed and negative (Except mentioned)
Respiratory: Reports Cough
Physical Exam
-
General: No Apparent Distress and Comfortable
HEENT: Normocephalic and Atraumatic
Respiratory: Wheezes and Other (Coarse breath sound bilaterally)
Cardiac: Regular Rhythm and S1/S2; Negative Murmur or Rub
GI: Soft, Nontender and Nondistended
Musculoskeletal: No Edema
Neuro: AO x 3
Psych: Calm
Data Reviewed
-
CT Scan: Image personally visualized and interpreted, Report Reviewed by me and Discussed with Physician
Labs: Labs Reviewed by me and Discussed with Physician
[2025-03-04 14:31] LABS: NT-proBNP 42.2 pg/ml
[2025-03-04 14:53] VITALS: BP 135/73
--- NOTE | 2025-03-04 15:12 | CM ---
Patient seen at bedside with patient and physicians. Patient plan is for discharge home with VN and next steps. CM will continue to follow for discharge planning needs.
Plan; home with VN vs home with no needs; watch for home O2 needs/nebulizer
[2025-03-04 16:37] LABS: Glucose - Point of Care 143 mg/dl (70-99)
[2025-03-04] MEDS: TESSALON PERLES 200 MG PO ×2 (16:39→22:17)
[2025-03-04] MEDS: BENICAR 10 MG PO (17:32)
[2025-03-04] MEDS: LOVENOX 40 MG SC (17:32)
[2025-03-04] MEDS: NORVASC 2.5 MG PO (17:32)
[2025-03-04] MEDS: LEXAPRO 10 MG PO (17:32)
[2025-03-04] MEDS: FLUSH (NSS) 1 FLUSH IV (20:19)
[2025-03-04 22:07] LABS: Glucose - Point of Care 117 mg/dl (70-99)
[2025-03-04] MEDS: MELATONIN 5 MG PO (22:17)
[2025-03-04 23:07] VITALS: BP 140/76
[2025-03-05 00:07] VITALS: BP 140/76
[2025-03-05] MEDS: ANESTHETIC LOZENGE 1 LOZENGE PO ×2 (01:43→15:58)
--- NOTE | 2025-03-05 03:23 | DOWNTIME ---
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 Downtime documentation of patient's care, including medication administrations, has been reconciled in the electronic record per guidelines. Refer to the
patient's paper chart under the miscellaneous tab to see printed paper medication records and downtime forms.
[2025-03-05 07:12] VITALS: BP 144/88
[2025-03-05] MEDS: ProAIR HFA INHALER 2 PUFF INH ×4 (07:23→20:04)
[2025-03-05] MEDS: ADVAIR HFA 230/21 MCG INHALER 2 PUFF INH ×2 (07:24→20:04)
[2025-03-05 08:00] LABS: Glucose - Point of Care 99 mg/dl (70-99)
[2025-03-05] MEDS: NOVOLOG FLEXPEN-LOW RESISTANCE SC ×2 (08:41→12:17)
[2025-03-05] MEDS: CRESTOR 40 MG PO (08:42)
[2025-03-05] MEDS: THERAGRAN 1 TABLET PO (08:42)
[2025-03-05] MEDS: METAMUCIL, KONSYL 1 PACKET PO ×2 (08:42→19:33)
[2025-03-05] MEDS: ZYLOPRIM 300 MG PO (08:43)
[2025-03-05] MEDS: TESSALON PERLES 200 MG PO ×3 (08:43→22:06)
[2025-03-05] MEDS: VITAMIN D3 (cholecalciferol) 25 MCG PO (08:43)
[2025-03-05] MEDS: DELTASONE 40 MG PO (08:43)
[2025-03-05] MEDS: PROTONIX 40 MG PO ×2 (08:43→19:31)
--- NOTE | 2025-03-05 09:08 | W.PN.PUL3 ---
Today's Communication / Plan
-
Slightly better, continue treatment as is, and at discharge
PO prednisone taper
W/u thus far negative, encouraged OOB/ambulation
Discharge planning in AM
OP Pulm FU to be arranged
Assessment
-
Patient is a 64-year-old male with previous history of hypertension, gout, MGUS presenting to ER with cough, wheezing and shortness of breath. He states states he had had a recent chest URI in the past week, sick contacts at home including
grandchildren. He has since then reported dry coughing for the past 3 nights, worsening with associated dyspnea on exertion for the past week. Chest x-ray demonstrating no acute findings. Initial COVID and flu testing are negative. He is
admitted since 02/27/2025 and placed on IV steroids without improvement.
Denies any prior known history of lung disease, he has no history of asthma nor family history. He does admit to significant chemical exposure for the past 30 years. 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
high levels of PFAS. He is not sure if this is contributory. He denies any exposures to asbestos or other chemicals otherwise.
Lifelong non-smoker, he reports occasional cigar use but not continuous. He has never seen pulmonary in the past.
Suspect AE asthma exacerbation, could have adult onset
Exposure history noted below
Acute cough, ~1 week
Sick contacts at home, negative viral panel/PCT neg
RAMOS
Hyponatremia, mild
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
Essential (primary) hypertension
Mixed hyperlipidemia
Lumbar disc disease
Cervical radiculopathy
Parkinson's disease
MGUS
History of bilateral hip replacements
Gout
Chronic kidney disease, unspecified CKD stage
Obesity BMI 36.6
Plan
Persistent cough complaints in the past week, not occurring before sick contact exposure at home
Occasional cough noted wtih prior URIs but not to this degree
Stable no RA, no SOB noted
Has never been diagnosed wtih lung disease in the past, denies family history
Lifelong nonsmoker, occasional cigar use socially
CXR initially completed, nondiagnostic
Started on IV steroids wtih some minimal improvement in complaints
Negative testing for viral, bacterial PNA panels
PCT negative 02/28
CBC on admission -- Eos 5.9%/300--denies allergic history
Prior history of lung disease is NOT noted however patient reports 30+ year exposure to environmental chemicals at the [employer] [facility] in [place]
The closure resulted in contamination including volatile organic compounds (VOCs) in groundwater, PFAS in various media, and metals in soil.
Specifically, PFAS, also known as 'forever chemicals,' were detected in the base's groundwater and drinking water supply in 2010.
These chemicals are believed to have originated from firefighting foam used at the [facility]--reviewed from [place] EPA site
Literature search on these chemical due indicate potential lung disease including cancers/COPD--
He has shared a list of chemical exposures in which he was tested and was positive for high blood PFAS levels compared to the gen population: (1) perfluorooctanoic acid (PFOA)--highest concentration, (2) perfluorooctanesulfonic acid (PFOS), (3)
perfluorohexane sulfonic acid (PFHxS), (4) perfluorononanoic acid (PFNA), (5) perfluorodecanoid acid (PFDeA), (6) perfluoroheptanoic acid (PFHpA), (7) 9-W-Cwckof-perfluorooctane sulfoamido acetic acid (MeFOSAA), (8) perfluoroundecanoic acid (PFUA).
PFAS has been linked to various lung diseases, including a higher risk of lung cancer and COPD. Specifically, PFOA has been shown to reduce cell stiffness in lung adenocarcinoma cells, which can enhance tumor cell migration and potentially increase
the risk of cancer metastasis. Additionally, studies suggest PFOA and PFOS exposure may impair lung function through various mechanisms like methylation modification and oxidative stress.
I am not sure if the above exposure findings are conclusive evidence of causative lung disease
But we will keep this in mind moving forward
Suspect patient has adult onset asthma, we will obtain bedside PFT
Spirometry reviewed, normal overall, some small airways disease present
Cough could be postviral vs atelectasis (with recruitment causing cough)
Continue high dose HFA, and PO prednisone taper, as well at discharge
Needs to do IS, OOB, encouraged ambulation
Continue Tessalon Perles scheduled
CT chest obtained, not significant in findings, minor small inflammatory process in RLL
Prior CXR obtained indicating no acute findings
Other imaging reviewed--CT AP 01/10/25- clear bases
We discussed OP FU to continue w/u if no other acute findings noted
Placed on IV steroids, but not significantly improving
Transitioned to PO prednisone, may be contributing to insomnia
He does not appear to be responding to traditional asthma treatments thus far but this could take weeks to improve
Prior ECHO results are reviewed indicating no acute findings
No obvious cardiac cause
Check proBNP for completeness
Weight loss measures recommended
Obesity likely contributing to respiratory symptoms
Risk factors assessed for underlying sleep disordered breathing also noted, recommend outpatient PSG/sleep evaluation--I discussed this with him as well
Will need outpatient pulmonary evaluation in our office for PFTs and 6MWT
Reviewed with patient
DC planning by tomorrow 03/06
Diagnostic Data
Chest X-Ray: 03/03/25- 1. Mild amount of bilateral infrahilar ground-glass opacity in the lower lobes. Diagnostic possibilities are (1) mild pneumonia, (2) mild subsegmental atelectasis, or (3) a mild inflammatory pneumonitis.
2. Mildly decreased bilateral lung volumes.
02/27/25- No acute cardiopulmonary process.
CT Scan: AP 01/10/25- Lower Chest: The included lung bases contain some minor subsegmental atelectasis. No pleural effusion.
01/13/25 Echo: LV ejection fraction is 55-60%, by visual assessment. Normal regional wall motion. Normal right ventricular size and function. Mildly thickened mitral valve leaflets. Mild mitral regurgitation.
Trileaflet aortic valve. Aortic valve opens normally. Trace aortic regurgitation. Tricuspid valve opens normally. Mild tricuspid regurgitation. Estimated pulmonary artery pressure of 15-20 mmHg.
No prior study available for comparison.
PFT's:
Reports and relevant images were personally reviewed.
Total time spent on this consultation __45__ minutes which includes review of history, physical exam, medications, laboratory data, personal review of imaging, extensive review of outpatient records, discussion with care team and respiratory therapy.
Subjective Data
-
Date of Service:
Date of Service: March 05, 2025
Chief Complaint: Pulmonary Follow Up
Subjective:
Does feel slightly improved today, remains stable on RA
Does not feel ready to go home
Objective Data
Data Reviewed
Vital Signs / I&O / Oxygen:
Vital Signs
Temp Pulse Resp BP Pulse Ox
97.6 F 88 18 144/88 94
03/05/25 07:12 03/05/25 07:30 03/05/25 07:30 03/05/25 07:12 03/05/25 07:30
Intake and Output
03/04/25 03/05/25 03/06/25
06:59 06:59 06:59
Intake Total 1080 / 1080 1440 / 1440
Balance 1080 / 1080 1440 / 1440
SaO2 94
Nasal Cannula flow liters per 2
minute
Physical Exam
General: Comfortable and Other (NAD, obese, anxious appearing)
HEENT: Normocephalic, Anicteric and Moist Mucous Membranes
Cardiovascular: S1-S2 and Regular Rhythm
Respiratory: Clear and Non-Labored Respirations
GI: Soft, Non Distended and Non Tender
Neurology: Awake, Alert, Oriented and No Motor Deficits
Skin: Warm, Dry and Good Color
Labs/Micro/Reports
Lab Data
03/03/25 10:17
[2025-03-05 09:55] LABS: Blood Urea Nitrogen 31 mg/dl (9-20); Calcium 9.5 mg/dl (8.4-10.2); Carbon Dioxide 26 mmol/L (22-30); Chloride 101 mmol/L (98-107); Estimated Creatinine Clearance 81 ml/min; Glucose 80 mg/dl (70-99); Potassium 4.8 mmol/L (3.5-5.1); Sodium 138 mmol/L (135-145); eGFR > 60.00
--- NOTE | 2025-03-05 10:42 | W.PN.HOSP.TC ---
Addendum entered and electronically signed by Padmini rTacy MD 03/05/25 15:54:
I saw and evaluated the patient independently. I reviewed the resident�s note and agree with findings and plan as documented by Dr. Sam.
GENERAL: well developed, well nourished, male in no apparent distress
HEENT: NC/AT
HEART: regular rate and rhythm, +S1, +S2
LUNGS : cough, wheezing diffusely
ABDOM: soft, nontender, nondistended, + bowel sounds
EXT: no cyanosis, clubbing, or edema
NEUROLOGIC: grossly intact
viral bronchitis/URI viral --CXR without PNA, CT chest without issue--covid/flu neg--added pulmicort and robitussin with codeine--Cont symptomatic control, Duoneb ATC and PRN, Mucinex, Tessalon, Robitussin-- vest therapy now producing sputum and pt
wants another night of treatment--apprec pulm eval --OK for d/c
mild hyperglycemia which is likely due to steroid effect--sliding scale coverage
Diarrhea--likely viral in nature--Negative for C. difficile
Essential hypertension--Continue amlodipine-olmesartan
History of gout--Continue allopurinol
Hyperlipidemia--Continue rosuvastatin
Anxiety/depression--continue Lexapro
History of MGUS
code status--Full code
DVT proph --Lovenox
likely home tomorrow--outpt sleep apnea evals
Original Note:
Today's Communication/Plan
-
Cough improving
CT chest unrevealing
Further workup for cough outpatient with pulmonology
Discharge plan for tomorrow with VN consult
prednisone taper
Assessment / Plan
Assessment / Plan
IMPRESSION:
Cough
Dyspnea on exertion
Diarrhea
Essential hypertension
History of gout
Hyperlipidemia
Anxiety/depression
History of MGUS
PLAN:
Respiratory symptoms likely secondary to viral bronchitis/ URI viral
COVID/Flu and RSV negative
Chest x-ray unremarkable
Procal negative
Cont symptomatic control, Mucinex, Tessalon, Robitussin.
Continue oral prednisone
Pulmonology following
The worsening of the cough is likely because postviral syndrome.
Chest CT unrevealing
The patient might benefit from CPAP for sleep apnea
The workup can be done outpatient
Patient is medically/clinically stable for discharge, however patient requested on staying another day for complete improvement!
Discharge plan for tomorrow with VN consult
Dyspnea on exertion
Currently on room air
Oral prednisone
PT
Diarrhea
Negative for C. difficile
Essential hypertension
Continue amlodipine-olmesartan
History of gout
Continue allopurinol
Hyperlipidemia
Continue rosuvastatin
Anxiety/depression
continue Lexapro
#History of MGUS
Full code
Lovenox
Regular diet
Anticipated Discharge: Within 24 hours
Subjective/Interval History
-
Date of Service: March 05, 2025
Improvement of cough overnight
Objective Data
-
Labs:
Laboratory Results
03/05/25
08:07
Sodium 138
Potassium 4.8
Chloride 101
Carbon Dioxide 26
BUN 31 H
Creatinine 1.1
Glucose 80
Calcium 9.5
Vital Signs:
Vital Signs
Temp Pulse Resp BP Pulse Ox
97.6 F 88 18 144/88 95
03/05/25 07:12 03/05/25 07:30 03/05/25 07:30 03/05/25 07:12 03/05/25 10:15
I&O
03/04/25 03/05/25 03/06/25
06:59 06:59 06:59
Intake Total 1080 / 1080 1440 / 1440
Balance 1080 / 1080 1440 / 1440
Review of Systems
-
All other systems: Reviewed and negative
Physical Exam
-
General: No Apparent Distress and Comfortable
HEENT: Normocephalic and Atraumatic
Respiratory: Wheezes (Improvement) and Rhonchi (Improving)
Cardiac: Regular Rhythm and S1/S2
GI: Soft, Nontender and Nondistended
Musculoskeletal: No Edema
Neuro: AO x 3
Psych: Calm
Data Reviewed
-
Labs: Labs Reviewed by me and Discussed with Physician
[2025-03-05 12:06] LABS: Glucose - Point of Care 107 mg/dl (70-99)
[2025-03-05 15:32] VITALS: BP 134/54
[2025-03-05 16:28] LABS: Glucose - Point of Care 210 mg/dl (70-99)
[2025-03-05] MEDS: LOVENOX 40 MG SC (17:25)
[2025-03-05] MEDS: LEXAPRO 10 MG PO (17:25)
[2025-03-05] MEDS: NOVOLOG FLEXPEN-LOW RESISTANCE 2 UNITS SC (17:26)
[2025-03-05] MEDS: NORVASC 2.5 MG PO (17:28)
[2025-03-05] MEDS: BENICAR 10 MG PO (17:28)
[2025-03-05] MEDS: ROBITUSSIN AC 10 ML PO (22:06)
[2025-03-05] MEDS: MELATONIN 5 MG PO (22:06)
[2025-03-05 22:23] LABS: Glucose - Point of Care 144 mg/dl (70-99)
[2025-03-05 23:36] VITALS: BP 133/75
[2025-03-06] MEDS: ANESTHETIC LOZENGE 1 LOZENGE PO (00:10)
[2025-03-06] MEDS: MOTRIN 400 MG PO (00:13)
[2025-03-06 07:09] VITALS: BP 157/92
[2025-03-06] MEDS: ADVAIR HFA 230/21 MCG INHALER 2 PUFF INH (07:21)
[2025-03-06] MEDS: ProAIR HFA INHALER 2 PUFF INH ×2 (07:21→11:11)
[2025-03-06 07:41] LABS: Glucose - Point of Care 85 mg/dl (70-99)
[2025-03-06] MEDS: NOVOLOG FLEXPEN-LOW RESISTANCE SC ×2 (07:46→12:04)
[2025-03-06] MEDS: DELTASONE 40 MG PO (07:50)
[2025-03-06] MEDS: VITAMIN D3 (cholecalciferol) 25 MCG PO (07:50)
[2025-03-06] MEDS: CRESTOR 40 MG PO (07:50)
[2025-03-06] MEDS: THERAGRAN 1 TABLET PO (07:50)
[2025-03-06] MEDS: PROTONIX 40 MG PO (07:50)
[2025-03-06] MEDS: ZYLOPRIM 300 MG PO (07:50)
[2025-03-06] MEDS: METAMUCIL, KONSYL 1 PACKET PO (07:50)
[2025-03-06] MEDS: TESSALON PERLES 200 MG PO (07:50)
--- NOTE | 2025-03-06 09:08 | W.PN.PUL3 ---
Today's Communication / Plan
-
Doing well today, stable on RA, tolerating OOB/ambulation
We reviewed plans again today, outpatient follow up
Discharge planning per team, we will sign off at this time
Assessment
-
Patient is a 64-year-old male with previous history of hypertension, gout, MGUS presenting to ER with cough, wheezing and shortness of breath. He states states he had had a recent chest URI in the past week, sick contacts at home including
grandchildren. He has since then reported dry coughing for the past 3 nights, worsening with associated dyspnea on exertion for the past week. Chest x-ray demonstrating no acute findings. Initial COVID and flu testing are negative. He is
admitted since 02/27/2025 and placed on IV steroids without improvement.
Denies any prior known history of lung disease, he has no history of asthma nor family history. He does admit to significant chemical exposure for the past 30 years. 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
high levels of PFAS. He is not sure if this is contributory. He denies any exposures to asbestos or other chemicals otherwise.
Lifelong non-smoker, he reports occasional cigar use but not continuous. He has never seen pulmonary in the past.
Suspect AE asthma exacerbation, could have adult onset
Exposure history noted below
Acute cough, ~1 week
Sick contacts at home, negative viral panel/PCT neg
RAMOS
Hyponatremia, mild
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
Essential (primary) hypertension
Mixed hyperlipidemia
Lumbar disc disease
Cervical radiculopathy
Parkinson's disease
MGUS
History of bilateral hip replacements
Gout
Chronic kidney disease, unspecified CKD stage
Obesity BMI 36.6
Plan
Persistent cough complaints in the past week, not occurring before sick contact exposure at home
Occasional cough noted wtih prior URIs but not to this degree
Stable no RA, no SOB noted
Has never been diagnosed wtih lung disease in the past, denies family history
Lifelong nonsmoker, occasional cigar use socially
CXR initially completed, nondiagnostic
Started on IV steroids wtih some minimal improvement in complaints
Negative testing for viral, bacterial PNA panels
PCT negative 02/28
CBC on admission -- Eos 5.9%/300--denies allergic history
Prior history of lung disease is NOT noted however patient reports 30+ year exposure to environmental chemicals at the [facility] [employer] [facility] in [place]
The closure resulted in contamination including volatile organic compounds (VOCs) in groundwater, PFAS in various media, and metals in soil.
Specifically, PFAS, also known as 'forever chemicals,' were detected in the base's groundwater and drinking water supply in 2010.
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
Literature search on these chemical due indicate potential lung disease including cancers/COPD--
He has shared a list of chemical exposures in which he was tested and was positive for high blood PFAS levels compared to the gen population: (1) perfluorooctanoic acid (PFOA)--highest concentration, (2) perfluorooctanesulfonic acid (PFOS), (3)
perfluorohexane sulfonic acid (PFHxS), (4) perfluorononanoic acid (PFNA), (5) perfluorodecanoid acid (PFDeA), (6) perfluoroheptanoic acid (PFHpA), (7) 2-Z-Kxykox-perfluorooctane sulfoamido acetic acid (MeFOSAA), (8) perfluoroundecanoic acid (PFUA).
PFAS has been linked to various lung diseases, including a higher risk of lung cancer and COPD. Specifically, PFOA has been shown to reduce cell stiffness in lung adenocarcinoma cells, which can enhance tumor cell migration and potentially increase
the risk of cancer metastasis. Additionally, studies suggest PFOA and PFOS exposure may impair lung function through various mechanisms like methylation modification and oxidative stress.
I am not sure if the above exposure findings are conclusive evidence of causative lung disease
But we will keep this in mind moving forward
Suspect patient has adult onset asthma, we will obtain bedside PFT
Spirometry reviewed, normal overall, some small airways disease present
Cough could be postviral vs atelectasis (with recruitment causing cough)
Continue high dose HFA, and PO prednisone taper, as well at discharge
Needs to do IS, OOB, encouraged ambulation
Continue Tessalon Perles scheduled
CT chest obtained, not significant in findings, minor small inflammatory process in RLL
Prior CXR obtained indicating no acute findings
Other imaging reviewed--CT AP 01/10/25- clear bases
We discussed OP FU to continue w/u if no other acute findings noted
Placed on IV steroids, but not significantly improving
Transitioned to PO prednisone, may be contributing to insomnia
He does not appear to be responding to traditional asthma treatments thus far but this could take weeks to improve
Prior ECHO results are reviewed indicating no acute findings
No obvious cardiac cause
proBNP negative
Weight loss measures recommended
Obesity likely contributing to respiratory symptoms
Risk factors assessed for underlying sleep disordered breathing also noted, recommend outpatient PSG/sleep evaluation--I discussed this with him as well
Will need outpatient pulmonary evaluation in our office for PFTs and 6MWT
Reviewed with patient
DC planning 03/06
Diagnostic Data
Chest X-Ray: 03/03/25- 1. Mild amount of bilateral infrahilar ground-glass opacity in the lower lobes. Diagnostic possibilities are (1) mild pneumonia, (2) mild subsegmental atelectasis, or (3) a mild inflammatory pneumonitis.
2. Mildly decreased bilateral lung volumes.
02/27/25- No acute cardiopulmonary process.
CT Scan: AP 01/10/25- Lower Chest: The included lung bases contain some minor subsegmental atelectasis. No pleural effusion.
01/13/25 Echo: LV ejection fraction is 55-60%, by visual assessment. Normal regional wall motion. Normal right ventricular size and function. Mildly thickened mitral valve leaflets. Mild mitral regurgitation.
Trileaflet aortic valve. Aortic valve opens normally. Trace aortic regurgitation. Tricuspid valve opens normally. Mild tricuspid regurgitation. Estimated pulmonary artery pressure of 15-20 mmHg.
No prior study available for comparison.
PFT's:
Reports and relevant images were personally reviewed.
Total time spent on this consultation __45__ minutes which includes review of history, physical exam, medications, laboratory data, personal review of imaging, extensive review of outpatient records, discussion with care team and respiratory therapy.
Subjective Data
-
Date of Service:
Date of Service: March 06, 2025
Chief Complaint: Pulmonary Follow Up
Subjective:
Doing well, feels much better today
No new complaints, able to ambulate well
Objective Data
Data Reviewed
Vital Signs / I&O / Oxygen:
Vital Signs
Temp Pulse Resp BP Pulse Ox
97.9 F 87 16 157/92 96
03/06/25 07:09 03/06/25 07:24 03/06/25 07:24 03/06/25 07:09 03/06/25 07:55
Intake and Output
03/05/25 03/06/25 03/07/25
06:59 06:59 06:59
Intake Total 1440 / 1440 960 / 960
Balance 1440 / 1440 960 / 960
SaO2 96
Nasal Cannula flow liters per 2
minute
Physical Exam
General: Comfortable and Other (NAD, obese, anxious appearing)
HEENT: Normocephalic, Anicteric and Moist Mucous Membranes
Cardiovascular: S1-S2 and Regular Rhythm
Respiratory: Clear and Non-Labored Respirations
GI: Soft, Non Distended and Non Tender
Neurology: Awake, Alert, Oriented and No Motor Deficits
Skin: Warm, Dry and Good Color
Labs/Micro/Reports
Lab Data
03/03/25 10:17
[2025-03-06 09:11] LABS: Blood Urea Nitrogen 26 mg/dl (9-20); Calcium 9.1 mg/dl (8.4-10.2); Carbon Dioxide 28 mmol/L (22-30); Chloride 102 mmol/L (98-107); Estimated Creatinine Clearance 89 ml/min; Glucose 79 mg/dl (70-99); Potassium 4.1 mmol/L (3.5-5.1); Sodium 135 mmol/L (135-145); eGFR > 60.00
--- NOTE | 2025-03-06 10:25 | CM ---
Patient for discharge home today. Patient for transportation. Patient aware of nebulizer script and per Dr. Griggs the leather goods sales representative for the vest will provide from office. CM will continue to follow for discharge planning needs.
Plan; home with [facility] to follow; nebulizer sript
[2025-03-06 11:51] LABS: Glucose - Point of Care 135 mg/dl (70-99)
--- NOTE | 2025-03-06 13:13 | W.PN.HOSP.TC ---
Addendum entered and electronically signed by Padmini Tracy MD 03/06/25 14:07:
I saw and evaluated the patient independently. I reviewed the resident�s note and agree with findings and plan as documented by Dr. Sam.
GENERAL: well developed, well nourished, male in no apparent distress
HEENT: NC/AT
HEART: regular rate and rhythm, +S1, +S2
LUNGS : clear and much improved
ABDOM: soft, nontender, nondistended, + bowel sounds
EXT: no cyanosis, clubbing, or edema
NEUROLOGIC: grossly intact
viral bronchitis/URI viral --CXR without PNA, CT chest without issue--covid/flu neg--added pulmicort and robitussin with codeine--Cont symptomatic control, Duoneb ATC and PRN, Mucinex, Tessalon, Robitussin-- vest therapy, now producing
sputum--apprec pulm eval --OK for d/c
mild hyperglycemia which is likely due to steroid effect--sliding scale coverage
Diarrhea--likely viral in nature--Negative for C. difficile
Essential hypertension--Continue amlodipine-olmesartan
History of gout--Continue allopurinol
Hyperlipidemia--Continue rosuvastatin
Anxiety/depression--continue Lexapro
History of MGUS
code status--Full code
DVT proph --Lovenox
d/c home
Original Note:
Today's Communication/Plan
-
Doing overall well today, plan to discharge home with VN
Dispo medications:
Prednisone taper, Tessalon Perles, Pulmicort, albuterol inhaler
Follow-up with pulmonology outpatient
Symptomatic management for cough
Assessment / Plan
Assessment / Plan
IMPRESSION:
Cough
Dyspnea on exertion
Diarrhea
Essential hypertension
History of gout
Hyperlipidemia
Anxiety/depression
History of MGUS
PLAN:
Respiratory symptoms likely secondary to viral bronchitis/ URI viral
COVID/Flu and RSV negative
Chest x-ray unremarkable
Procal negative
Cont symptomatic control, Mucinex, Tessalon, Robitussin.
Continue oral prednisone
Pulmonology following
The worsening of the cough is likely because postviral syndrome.
Chest CT unrevealing
The patient might benefit from CPAP for sleep apnea
The workup can be done outpatient
Discharge plan for today with VN consult
Continue prednisone taper, neb, albuterol inhaler
Dyspnea on exertion
Currently on room air
Oral prednisone
PT
Diarrhea
Negative for C. difficile
Essential hypertension
Continue amlodipine-olmesartan
History of gout
Continue allopurinol
Hyperlipidemia
Continue rosuvastatin
Anxiety/depression
continue Lexapro
#History of MGUS
Full code
Lovenox
Regular diet
Anticipated Discharge: Today
Subjective/Interval History
-
Date of Service: March 06, 2025
Doing overall well today
Objective Data
-
Labs:
Laboratory Results
03/06/25
07:06
Sodium 135
Potassium 4.1
Chloride 102
Carbon Dioxide 28
BUN 26 H
Creatinine 1.0
Glucose 79
Calcium 9.1
Vital Signs:
Vital Signs
Temp Pulse Resp BP Pulse Ox
97.9 F 86 16 157/92 96
03/06/25 07:09 03/06/25 11:14 03/06/25 11:14 03/06/25 07:09 03/06/25 11:14
I&O
03/05/25 03/06/25 03/07/25
06:59 06:59 06:59
Intake Total 1440 / 1440 960 / 960
Balance 1440 / 1440 960 / 960
Review of Systems
-
All other systems: Reviewed and negative
Physical Exam
-
General: No Apparent Distress and Comfortable
HEENT: Normocephalic and Atraumatic
Respiratory: Clear to Auscultation and Non Labored Respirations; Negative Wheezes, Rales or Rhonchi
Cardiac: Regular Rhythm and S1/S2; Negative Murmur
GI: Soft, Nontender and Nondistended
Musculoskeletal: No Edema
Neuro: AO x 3
Psych: Calm
Data Reviewed
-
Labs: Labs Reviewed by me and Discussed with Physician
--- NOTE | 2025-03-06 13:15 | VNURNOTE ---
Met with patient and his spouse again at bedside. He confirms he ordered a neb machine through [employer] and will be delivered tomorrow AM. He is aware to fill neb solution Rx upon DC. Patient states he will follow up with Pulm to obtain pulm
toileting vest through them. [facility] will contact them within a few days after DC, patient agreeable.
[2025-03-06 13:55] VITALS: BP 126/70
--- NOTE | 2025-03-06 14:19 | W.DCSUMMARY ---
Addendum entered and electronically signed by Padmini Tracy MD 03/06/25 17:49:
Read, reviewed, and agree. See same day progress note for additional details. Time spent coordinating care, DC planning, review of DC plan of care with resident, transition of care, review of records in EMR, med rec, consults, notes, d/w
consultants, nursing, family, and CM = 28 minutes
Original Note:
Discharge Summary
Discharge Data
Date of Admission: 03/02/25
Date of Discharge: 03/06/25
-
Pending Results: No
Hospital Course
Discharging Physician : Dr Keke Sam, Dr Padmini Tracy
Disposition : Home with home care
Primary care physician : Jan Larkin
Principal Discharge diagnosis :
Respiratory symptoms likely secondary to viral bronchitis/ URI viral
Chronic Discharge diagnosis :
Essential hypertension
History of gout
Hyperlipidemia
Anxiety/depression
History of MGUS
Hospital Course : 64-year-old male presented with acute dry cough, wheeze, shortness of breath ongoing for about 1 week. DuoNeb, Decadron, Pulmicort, vest therapy were initiated. . COVID, flu, RSV all were negative. Chest x-ray was unrevealing,
procalcitonin negative. Patient did not have much improvement with the above treatment therefore we consulted pulmonology and they recommended CT chest. CT chest was unrevealing. Over the next few days patient's symptoms improved with
symptomatic management and prednisone, was producing sputum with the help of vest therapy. At the day of discharge to patient's vitals are stable, advised prednisone taper, continue nebs, albuterol inhaler. Advised patient to follow-up with
pulmonology outpatient.
Important imaging findings :
03/04/[address]
There is right greater than left bibasilar groundglass/tree-in-bud opacities which are likely infectious/inflammatory and may represent mild pneumonitis/pneumonia.
Procedure findings : none
Discharge Plan
-
Patient Disposition: Home (Routine Discharge)
Discharge Diagnosis/Procedures: Respiratory symptoms likely secondary to viral bronchitis/ URI viral
Dyspnea on exertion
Diarrhea
Essential hypertension
History of gout
Hyperlipidemia
Anxiety/depression
History of MGUS
Condition: Good
Diet: Low Sodium
Activity: No restrictions
Driving Restrictions: As prior to admission
Bathing Restrictions: None
Other Services: VN
Referrals:
Enedelia Guillory, DO [Active] - in two to three weeks (PFT)
Jan Larkin DO [Family Provider] - in less than 1 week
Additional Discharge Medication Instructions: Continue prednisone taper as instructed
Continue albuterol inhaler and budesonide nebulizer.
Robitussin/Mucinex/Tessalon Perles for cough
Capacol lozenges for sore throat
Follow-up with pulmonology outpatient
Prescriptions:
New
benzonatate 100 mg Capsule
200 mg PO TID Qty: 30 0RF
prednisone 10 mg Tablet
See Rx Instructions .ROUTE .COMPLEX Qty: 30 0RF
Rx Instructions:
Take By Mouth:
30 mg daily x3 days,
20 mg daily x3 days, 10 mg daily x3 days.
albuterol sulfate 90 mcg/actuation Hfa Aerosol Inhaler
2 puff inhalation R QID Qty: 2 0RF
budesonide 0.5 mg/2 mL suspension for nebulization
0.5 mg inhalation BID Qty: 60 0RF
Continued
allopurinol 300 MG tablet
300 mg PO DAILY
therapeutic multivitamin Tablet
1 tab PO DAILY
ibuprofen [Advil] 200 mg Tablet
400 mg PO Q6HPRN PRN (Reason: mild pain)
omeprazole 20 mg Capsule,Delayed Release(Dr/Ec)
20 mg PO BID
ezetimibe [Zetia] 10 mg Tablet
10 mg PO DAILY
escitalopram oxalate [Lexapro] 5 mg Tablet
10 mg PO QPM
cholecalciferol (vitamin D3) [Vitamin D3] 25 mcg (1,000 unit) Tablet
25 mcg PO DAILY
amlodipine-olmesartan 5-20 mg Tablet
0.5 tab PO QPM
rosuvastatin 40 mg Tablet
40 mg PO DAILY
psyllium seed (sugar) Powder
1 tbsp PO BID
Discharge Orders:
Discharge Patient (As Directed); Ordered 03/06/25
Ordered By: Keke Sam
Discharge Date and Time
Print Language: NORWEGIAN
== END 2025-03-06 14:25 | disposition home health service (06) | DRG 202 ==
LOC: 4 WEST ACU 12:08
PROVIDERS: Student in an Organized Health Care Education/Training Program; ADMITTING PHYSICIAN Internal Medicine; ATTENDING PHYSICIAN Internal Medicine; CONSULT PHYSICIAN Internal Medicine; EMERGENCY PHYSICIAN Emergency Medicine; FAMILY PHYSICIAN Family Medicine
DX: J20.8 Acute bronchitis due to other specified organisms (principal); E87.1 Hypo-osmolality and hyponatremia; Z11.52 Encounter for screening for COVID-19; N18.9 Chronic kidney disease, unspecified; I12.9 Hypertensive chronic kidney disease with stage 1 through stage 4 chronic kidney disease, or unspecified chronic kidney disease; F32.A Depression, unspecified; F41.9 Anxiety disorder, unspecified; Z68.36 Body mass index [BMI] 36.0-36.9, adult; E66.9 Obesity, unspecified; E78.2 Mixed hyperlipidemia; G20.A1 Parkinson's disease without dyskinesia, without mention of fluctuations; J45.909 Unspecified asthma, uncomplicated; M10.9 Gout, unspecified; M54.12 Radiculopathy, cervical region
CPT/HCPCS: 71045; 71046; 71250; 80048; 80053; 82962; 83036; 83880; 84145; 84484; 85025; 85027; 85610; 87324; 87449; 87502; 87798; 87807; 87811; 93005; 94060; 94640; 94644; 94669; 96374; 97116; 97162; 97530; 99285

== ENCOUNTER 2025-04-10 16:33 | Emergency (ER) | payer BC, SELFPAY ==
[2025-04-10 16:35] VITALS: BP 180/98
[2025-04-10 17:14] VITALS: BP 164/81
[2025-04-10 17:28] VITALS: BMI 38.7
[2025-04-10 17:53] LABS: % Basophils 1.1 % (0-2); % Immature Granulocytes 1.7 % (0-0.5); % Lymphocytes 20.5 % (20.5-51.1); % Monocytes 9.8 % (1.7-9.3); % Neutrophils 66.9 % (42.2-75.2); Absolute Basophils 0.1 10^3/uL (0-0.2); Absolute Immature Granulocytes 0.1 10^3/uL (0-0.05); Absolute Lymphocytes 1.4 10^3/uL (1.2-3.4); Absolute Monocytes 0.7 10^3/uL (0.1-0.6); Absolute Neutrophils 4.4 10^3/uL (1.4-6.5); Hematocrit 33.6 % (39.0-52.0); Hemoglobin 11.6 g/dL (13.0-18.0); Mean Corp Hgb Conc. 34.5 g/dL (33.0-37.0); Mean Corpuscular Hgb 33.9 pg (27.0-31.0); Mean Corpuscular Volume 98.2 fL (80.0-94.0); Mean Platelet Volume 10.6 fL (7.4-10.4); Nucleated Red Blood Cells % 0.5 % (-); Platelet Count 184 10^3/uL (130-400); Red Blood Cell Count 3.42 10^6/uL (4.70-6.10); Red Cell Dist. Width 14.6 % (11.5-14.5); White Blood Cell Count 6.6 10^3/uL (4.8-10.8)
[2025-04-10 18:08] LABS: ALT (SGPT) 28 U/L (0-50); AST (SGOT) 42 U/L (17-59); Albumin 4.1 g/dl (3.5-5.0); Alkaline Phosphatase 67 U/L (38-126); Blood Urea Nitrogen 19 mg/dl (9-20); Calcium 9.5 mg/dl (8.4-10.2); Carbon Dioxide 25 mmol/L (22-30); Chloride 109 mmol/L (98-107); Estimated Creatinine Clearance 92 ml/min; Glucose 92 mg/dl (70-99); Sodium 138 mmol/L (135-145); Total Bilirubin 0.8 mg/dl (0.2-1.3); Total Protein 6.4 g/dl (6.3-8.2); eGFR > 60.00
[2025-04-10 18:18] LABS: NT-proBNP 129 pg/ml; Troponin I < 0.012 ng/ml
--- NOTE | 2025-04-10 18:34 | ED.GENMED ---
History of Present Illness
General
Chief Complaint: Breathing Problem
Source: patient
Time Seen by Provider: 04/10/25 17:36
History of Present Illness
History of Present Illness:
64-year-old male with recent past medical history of pneumonia/pneumonitis requiring admission to this facility presenting to the ER for evaluation after his mortgage processing clerk did follow-up labs which showed a D-dimer greater than 3, patient sent to the
ER for CTA of the chest. Patient reports that since his discharge he feels a little bit better but still having shortness of breath/exertional dyspnea noting when he goes up the stairs he will often feel some palpitations and have to rest patient
denies any pleurisy, hemoptysis, current cough, lower extremity edema or any other concerns.
Past History
Past History
ED Past Medical History: GERD, HTN and Hypercholesterolemia
ED Past Surgical History: Orthopedic
Social History
Tobacco: Non-smoker
Alcohol: None
Drug: None
Personal:
Living: with family
Review of Systems
Review of Systems
All Other Systems: ROS reviewed and negative except as documented in HPI and ROS
Phy Exam
Physical Exam
Physical Exam:
GENERAL: Alert , in no apparent distress, overweight
HEAD: Normocephalic atraumatic
EYE: conjunctiva clear
NECK: Supple
ENT: o/p clr, mmm.
CARDIAC: Regular rate and rhythm
LUNGS: Clear breath sounds bilaterally, no acute respiratory distress, no wheezes/rales/rhonchi
NEUROLOGICAL: Alert and oriented
SKIN: Warm and dry, skin intact.
MUSCULOSKELETAL: well perfused.
PSYCH: Normal and appropriate interaction.
Scores
Heart Failure Risk
Heart Failure Risk Score: Not Applicable
Heart Score for Chest Pain Patients
STEMI patient?: Not applicable
Withdrawal Assessment of Alcohol
Withdrawal Assessment Completed?: Not applicable
Course
Orders/Labs/Results
Orders:
Orders
04/10/25 17:37
Electrocardiogram (*1) Urgent
Reason for Study: Shortness of Breath
CT Chest PE Study Urgent
Comment:
Reason For Exam: worsening SOB, elevated d-dimer
EKG- Treatment ONCE
04/10/25 17:46
Complete Blood Count/With Diff Urgent
Comprehensive Metabolic Panel Urgent
NT-proBNP Urgent
Troponin I Urgent
04/10/25 20:28
Apixaban [Eliquis] 10 mg PO NOW STA
Abnormal Lab Results
04/10/25
17:46
RBC 3.42 L 10^6/uL
(4.70-6.10)
Hgb 11.6 L g/dL
(13.0-18.0)
Hct 33.6 L %
(39.0-52.0)
MCV 98.2 H fL
(80.0-94.0)
MCH 33.9 H pg
(27.0-31.0)
RDW 14.6 H %
(11.5-14.5)
MPV 10.6 H fL
(7.4-10.4)
Abs Immat Gran (auto) 0.1 H 10^3/uL
(0-0.05)
Absolute Monos (auto) 0.7 H 10^3/uL
(0.1-0.6)
Immature Gran % 1.7 H %
(0-0.5)
Monocytes % 9.8 H %
(1.7-9.3)
Chloride 109 H mmol/L
(98-107)
04/10/25 17:46
04/10/25 17:46
Vital Signs
Initial and Last Documented VS:
Initial Vital Signs
Temp Pulse Resp BP Pulse Ox
97.6 F 94 20 180/98 96
04/10/25 16:35 05/30/25 16:35 04/10/25 16:35 04/10/25 16:35 04/10/25 16:35
Last Documented Vital Signs
Temp Pulse Resp BP Pulse Ox
97.6 F 71 20 166/99 97
04/10/25 16:35 04/10/25 18:30 04/10/25 16:35 04/10/25 20:00 04/10/25 20:30
MDM/Problems Addressed
Differential Diagnosis Includes:
Pulmonary embolism, continued symptoms secondary to recent pneumonia/pneumonitis, reactive airway disease, less concern for ACS presentation/CHF
MDM/Problems Addressed:
64-year-old male presenting the ER for evaluation at the request of mortgage processing clerk who performed outpatient labs which showed a D-dimer greater than 3. Will order CTA of the chest to rule out PE. Patient otherwise hemodynamically stable.
Disposition pending.
*Radiology
Radiology exam reviewed: radiology read reviewed
*Pulse Oximetry
Patient hypoxic: no
*EKG
Heart Rate: 77
Rate: normal
Rhythm: sinus
Interval: first degree heart block
Ischemia: no ischemia
*Beam Warper Interpretation
Rate: normal
Rhythm: sinus
*Critical Care Note
Total Time (30-74mins, 75-104mins- exclusive of procedures): Not Applicable
Data Reviewed
Review of Other/Old Records Reveals: Labs, Records and Discharge Summary
Source: patient, records and family
Patient Management
Discussion with other providers: Spray Dyer and Radiologist
Escalation/DeEscalation of care consider admission/obs:
Informed by radiology that patient has few right lower lobe pulmonary emboli with mild clot burden but no evidence for right heart strain. Patient's troponin and BNP are all within normal limits. I reviewed the case with on-call mortgage processing clerk,
John, who states that given patient's stability it is certainly reasonable for him to be discharged on Eliquis with close follow-up as an outpatient. They will arrange for the patient to have an echocardiogram and venous ultrasound of the lower
extremities. Patient does feel comfortable being discharged home. He was given the first dose of Eliquis tonight prior to leaving the hospital. He is aware of return precautions to the ER.
ED Attending Note
-
Portions of this chart may have been created with voice recognition software.� Occasional wrong word or��sound alike� substitutions may have occurred due to the inherent limitations of voice recognition software.
Discharge Plan
Departure
Patient Disposition: Home (Routine Discharge)
Date of Disposition: 04/10/25
Time of Disposition: 20:25
Patient with high blood pressure during this ER visit?: Yes
Discharge Problem:
Pulmonary embolism
Instructions: Pulmonary embolism - Discharge instructions, ED Low Risk PE
Prescriptions:
New
Eliquis 5 mg tablet
5 mg PO BID Qty: 68 0RF
Rx Instructions:
Take 2 tabs PO BID x 6.5 days, Take 1 tab PO BID remaining days
No Action
allopurinol 300 MG tablet
300 mg PO DAILY
therapeutic multivitamin Tablet
1 tab PO DAILY
ibuprofen [Advil] 200 mg Tablet
400 mg PO Q6HPRN PRN (Reason: mild pain)
omeprazole 20 mg Capsule,Delayed Release(Dr/Ec)
20 mg PO BID
ezetimibe [Zetia] 10 mg Tablet
10 mg PO DAILY
escitalopram oxalate [Lexapro] 5 mg Tablet
10 mg PO QPM
cholecalciferol (vitamin D3) [Vitamin D3] 25 mcg (1,000 unit) Tablet
25 mcg PO DAILY
amlodipine-olmesartan 5-20 mg Tablet
0.5 tab PO QPM
rosuvastatin 40 mg Tablet
40 mg PO DAILY
psyllium seed (sugar) Powder
1 tbsp PO BID
benzonatate 100 mg Capsule
200 mg PO TID Qty: 30 0RF
prednisone 10 mg Tablet
See Rx Instructions .ROUTE .COMPLEX Qty: 30 0RF
Rx Instructions:
Take By Mouth:
30 mg daily x3 days,
20 mg daily x3 days, 10 mg daily x3 days.
albuterol sulfate 90 mcg/actuation Hfa Aerosol Inhaler
2 puff inhalation R QID Qty: 2 0RF
budesonide 0.5 mg/2 mL suspension for nebulization
0.5 mg inhalation BID Qty: 60 0RF
Referrals:
Robert Larkin DO [Family Provider, Family Practice]
Interventions
Interventions:
*Risk Screen - Suicide Last Done: 04/10/25 16:35
*Neglect/Abuse Screening Last Done: 04/10/25 16:35
*Nursing Disposition Last Done: 04/10/25 20:43
ED- Cardiac Assessment Last Done: 04/10/25 17:30
ED- Pulmonary Assessment Last Done: 04/10/25 17:30
Discharge Date and Time
Discharge Date/Time: 04/10/25 20:44
Print Language: STATELESS
[2025-04-10 19:00] VITALS: BP 150/82
[2025-04-10 20:00] VITALS: BP 166/99
[2025-04-10] MEDS: ELIQUIS 10 MG PO (20:36)
== END 2025-04-10 20:44 | disposition home or self-care (01) ==
LOC: EMR 16:33
PROVIDERS: Physician Assistant Medical; EMERGENCY PHYSICIAN Emergency Medicine; FAMILY PHYSICIAN Family Medicine
DX: I26.99 Other pulmonary embolism without acute cor pulmonale (principal); E78.00 Pure hypercholesterolemia, unspecified; I10 Essential (primary) hypertension; Z87.01 Personal history of pneumonia (recurrent)
CPT/HCPCS: 99284; 71275; 80053; 83880; 84484; 85025; 93005; Q9967

== ENCOUNTER → 2025-04-24 10:12 | Outpatient (REF) | payer BC, SELFPAY | LOC: HWRAD 10:12 | PROVIDERS: ATTENDING PHYSICIAN Nurse Practitioner Adult Health; FAMILY PHYSICIAN Family Medicine | DX: Z86.711 Personal history of pulmonary embolism (principal) | CPT/HCPCS: 93970 ==

== ENCOUNTER → 2025-04-24 10:48 | Outpatient (REF) | payer BC, SELFPAY | LOC: DHSLP 10:48 | PROVIDERS: ATTENDING PHYSICIAN Internal Medicine; FAMILY PHYSICIAN Family Medicine | DX: G47.33 Obstructive sleep apnea (adult) (pediatric) (principal) | CPT/HCPCS: 95800 ==

== ENCOUNTER → 2025-06-23 12:49 | Outpatient (REF) | payer BC, SELFPAY | LOC: HWRAD 12:49 | PROVIDERS: ATTENDING PHYSICIAN Family Medicine | DX: N20.0 Calculus of kidney (principal) | CPT/HCPCS: 76775 ==

== ENCOUNTER → 2025-06-25 13:21 | Outpatient (REF) | payer BC, SELFPAY | LOC: HWRAD 13:21 | PROVIDERS: ATTENDING PHYSICIAN Family Medicine | DX: R07.81 Pleurodynia (principal) | CPT/HCPCS: 71101; 74018 ==

== ENCOUNTER 2025-07-28 11:34 | Emergency (ER) | payer MEDICARE, SELFPAY ==
[2025-07-28 11:36] VITALS: BP 156/91
--- NOTE | 2025-07-28 13:45 | ED.GENMED ---
History of Present Illness
General
Chief Complaint: Fall
Source: patient
Time Seen by Provider: 07/28/25 13:35
History of Present Illness
History of Present Illness:
64-year-old male, very pleasant, history of Parkinson's with history of frequent falls states that when he woke Sunday morning, getting up from the bed, he lost his balance and fell, striking his head against the dresser. There was no loss of
consciousness. He was able to get himself back up. He denies associated headache but notes facial bruising associated with feeling like his vision is 'blurry' from the right eye. He denies neck pain, numbness, tingling, nausea, vomiting, chest
pain, dyspnea, headache, diplopia, dysarthria, dizziness, feeling off balance, abdominal pain, or other complaints. He saw his pulmonary doctor today for unrelated complaints and was referred to the emergency department he does not wear contacts or
glasses.
Past History
Past History
ED Past Medical History: GERD, HTN, Hypercholesterolemia and Other (parkinson's, pe)
ED Past Surgical History: Orthopedic
Social History
Tobacco: Non-smoker
Alcohol: None
Drug: Marijuana (medical)
Personal:
Living: with family
Phy Exam
Physical Exam
Physical Exam:
GENERAL: Alert , in no apparent distress
EYE: pupils equal and reactive, no photophobia, EOMI without pain or restriction. No hyphema noted. Patient does have a 'freckle' at the 7 o'clock position of the right eye which is unchanged.
NECK: Supple, no significant adenopathy, no midline tenderness.
ENT: o/p clr, mmm, there is a healing abrasion noted at the bridge of the nose without associated septal hematoma or nasal deformity. There is an abrasion and bruising noted at the right forehead, associated mild soft tissue swelling and bruising
noted at the right infraorbital area, no crepitus, no infraorbital anesthesia
CARDIAC: Regular rate and rhythm .
LUNGS: Clear breath sounds bilaterally, no acute respiratory distress, no wheezes/rales/rhonchi
ABDOMEN: Soft, without focal tenderness, no r/g, no cvat
NEUROLOGICAL: Alert and oriented, grossly nonfocal
SKIN: Warm and dry, skin intact.
MUSCULOSKELETAL: No edema, well perfused.
PSYCH: Normal and appropriate interaction.
Course
Orders/Labs/Results
Orders:
Orders
07/28/25 11:35
CT Head W/o Iv Contrast Urgent
Comment:
Reason For Exam: Fall on Eliquis
07/28/25 13:44
CT Orbits W/o Iv Contrast Urgent
Comment:
Reason For Exam: fall, on doac, r periorbita inj
Visual Acuity- Treatment ONCE
Nursing to Place Non Medication Order As Directed
Physician Order: eye box please
Vital Signs
Initial and Last Documented VS:
Initial Vital Signs
Temp Pulse Resp BP Pulse Ox
98.2 F 77 16 156/91 99
07/28/25 11:36 07/28/25 11:36 07/28/25 11:36 07/28/25 11:36 07/28/25 11:36
Last Documented Vital Signs
Temp Pulse Resp BP Pulse Ox
98.2 F 77 16 156/91 99
07/28/25 11:36 07/28/25 11:36 07/28/25 11:36 07/28/25 11:36 07/28/25 13:48
*Pulse Oximetry
SaO2: 99
Oxygen Mode of Delivery: Room air
Patient hypoxic: no
*Critical Care Note
Total Time (30-74mins, 75-104mins- exclusive of procedures): Not Applicable
Update Note
Update Note:
Patient presents to the Emergency Department with ___status post fall
Number and Complexity of Problems Addressed at the Encounter
� Chronic conditions affecting care:
� Acute Exacerbation and/or Progression of Chronic Illness:
� Differential Diagnosis includes: But not limited to intracranial bleed, orbital fracture, abrasion, hyphema, increased intraocular pressure, globe rupture, etc. etc.
Amount and/or Complexity of Data to be Reviewed and Analyzed
� I performed an independent evaluation of and my interpretation is:
EKG:
CT:head ct NAD Orbital CT: No findings to suggest recent bilateral orbital wall fracture.
Minimal inflammatory changes within the superficial right preorbital soft tissues, likely posttraumatic.
Xrays:
Laboratory Studies:
Other:
� Review of other/old records reveals:
� Clinical information was obtained by an independent historian:
� Prescriptions/Medications Considered but not given:
� Further testing considered but not performed:
Risk of Complications and/or Morbidity or Mortality of Patient Management
� Social determinants of health affecting care:
� Discussion with other providers (PCP, Hospitalists, Consultants, etc):
� Escalation of care including admission/observation vs risk of discharge considered: Patient remained stable here. Visual acuity noted. Intraocular pressure measured, level of 20 which is considered normal. Patient denies eye
pain or pressure, headache, nausea, vomiting. No abnormalities noted on eye exam here. Call placed to patient's brass polisher awaiting call.
I have placed a call to patient's outpatient brass polisher, Kelechi sanchez, and left a message 3 times without a return call. I spoke to our on-call brass polisher, Dr. Lopes, who discussed case with me. Of note, in addition to exam
noted here I did confirm with him that patient's visual fung are intact, no peripheral field abnormalities, no APD. He does not recommend further emergent treatment or evaluation here but rather outpatient follow-up. We mutually do not
clinically suspect open globe, retrobulbar hematoma, glaucoma, etc. etc. Patient's eye exam is remarkably normal. He suspects that blurry vision is likely unrelated to fall and otherwise coincidental. Discussed with patient importance of
follow-up and reasons return to the ER which he expresses understanding of.
Just as I was about to discharge pt, Dr Ybarra from his office returned my call....aware of hx/physical etc here. agrees with plan to d/c. He will call pt today to arrange for f/u in AM. Dr Dimas Odonnell [phone]
ED Attending Note
-
Portions of this chart may have been created with voice recognition software.� Occasional wrong word or��sound alike� substitutions may have occurred due to the inherent limitations of voice recognition software.
Discharge Plan
Departure
Patient Disposition: Home (Routine Discharge)
Date of Disposition: 07/28/25
Time of Disposition: 16:03
Patient with high blood pressure during this ER visit?: Yes
Condition: Good
Discharge Problem:
Contusion, Head injury
Instructions: Head Injury in Adults (DC), Contusion (DC), BLOOD PRESSURE
Prescriptions:
No Action
allopurinol 300 MG tablet
300 mg PO DAILY
therapeutic multivitamin Tablet
1 tab PO DAILY
ibuprofen [Advil] 200 mg Tablet
400 mg PO Q6HPRN PRN (Reason: mild pain)
omeprazole 20 mg Capsule,Delayed Release(Dr/Ec)
20 mg PO BID
ezetimibe [Zetia] 10 mg Tablet
10 mg PO DAILY
escitalopram oxalate [Lexapro] 5 mg Tablet
10 mg PO QPM
cholecalciferol (vitamin D3) [Vitamin D3] 25 mcg (1,000 unit) Tablet
25 mcg PO DAILY
amlodipine-olmesartan 5-20 mg Tablet
0.5 tab PO QPM
rosuvastatin 40 mg Tablet
40 mg PO DAILY
psyllium seed (sugar) Powder
1 tbsp PO BID
benzonatate 100 mg Capsule
200 mg PO TID Qty: 30 0RF
prednisone 10 mg Tablet
See Rx Instructions .ROUTE .COMPLEX Qty: 30 0RF
Rx Instructions:
Take By Mouth:
30 mg daily x3 days,
20 mg daily x3 days, 10 mg daily x3 days.
albuterol sulfate 90 mcg/actuation Hfa Aerosol Inhaler
2 puff inhalation R QID Qty: 2 0RF
budesonide 0.5 mg/2 mL suspension for nebulization
0.5 mg inhalation BID Qty: 60 0RF
Eliquis 5 mg tablet
5 mg PO BID Qty: 68 0RF
Rx Instructions:
Take 2 tabs PO BID x 6.5 days, Take 1 tab PO BID remaining days
Referrals:
Jan Larkin DO [Family Provider, Family Practice]
Activity Restrictions/Additional Instructions:
YOUR EYE DOCTOR WILL CONTACT YOU LATER TODAY TO ARRANGE FOR FOLLOW-UP TOMORROW. IF YOU DEVELOP WORSENING OR NEW SYMPTOMS SUCH DOUBLE VISION, LOSS OF VISION, SEVERE HEADACHE, VOMITING, NUMBNESS, CHEST PAIN, OR OTHER WORRISOME SIGNS, PLEASE RETURN
TO THE ER IMMEDIATELY!
Interventions
Interventions:
*Risk Screen - Suicide Last Done: 07/28/25 11:36
*Neglect/Abuse Screening Last Done: 07/28/25 11:36
*ED- Fall Risk Assessment Last Done: 07/28/25 11:36
*ED COVID-19 Vaccine History Last Done: 07/28/25 13:49
ED-Musculoskeletal Assessment Last Done: 07/28/25 13:49
ED- Neurological Assessment Last Done: 07/28/25 13:49
ED-Skin Assessment Last Done: 07/28/25 13:49
Discharge Date and Time
Print Language: CZECH
[2025-07-28 16:01] VITALS: BP 159/91
== END 2025-07-28 16:35 | disposition home or self-care (01) ==
LOC: EMR 11:34
PROVIDERS: EMERGENCY PHYSICIAN Emergency Medicine; FAMILY PHYSICIAN Family Medicine
DX: S00.83XA Contusion of other part of head, initial encounter (principal); S00.31XA Abrasion of nose, initial encounter; S00.81XA Abrasion of other part of head, initial encounter; W18.09XA Striking against other object with subsequent fall, initial encounter; Z91.81 History of falling; I10 Essential (primary) hypertension; E78.00 Pure hypercholesterolemia, unspecified; G20.A1 Parkinson's disease without dyskinesia, without mention of fluctuations; Z79.01 Long term (current) use of anticoagulants
CPT/HCPCS: 99284; 70450; 70480